=== PATIENT | female | born 1975 | race Caucasian/White ===

== ENCOUNTER → 2020-09-25 11:04 | Outpatient (BNVA) | payer MEDICAID, SELFPAY | PROVIDERS: Referring Provider Nurse Practitioner Family; Visit Provider Orthopaedic Surgery | DX: M54.9 Dorsalgia, unspecified (principal) | CPT/HCPCS: 72110 ==

== ENCOUNTER 2020-11-01 09:50 | Outpatient (CLI) | payer MEDICAID, SELFPAY ==
--- NOTE | 2020-11-01 09:55 | MM_ITS ---
WS: [id number] BILATERAL SCREENING DIGITAL MAMMOGRAM WITH CAD HISTORY: SCREENING COMPARISON: 07/28/2018 Bilateral CC and MLO views submitted. Computer aided detection analyzed. Breast composition: There are scattered areas of fibroglandular density. No suspicious masses, microc alcifications or architectural distortion. MM/[place] [id number] IMPRESSION: BI-RADS: 1-Negative FOLLOW UP: 1 Year Follow-up
== END 2020-11-01 09:51 | disposition home or self-care (01) ==
LOC: RADSHAW 09:53
PROVIDERS: PCP Nurse Practitioner Family; Visit Provider Nurse Practitioner Family
DX: Z12.31 Encounter for screening mammogram for malignant neoplasm of breast (principal)
CPT/HCPCS: 77067

== ENCOUNTER 2025-01-24 06:44 | Emergency (ER) | payer OTHER, MEDICAID, SELFPAY ==
--- NOTE | 2025-01-24 06:46 | XRR_ITS ---
PROCEDURE INFORMATION: Exam: XR Chest Exam date and time: 01/24/2025 7:01 AM Age: 49 years old Clinical indication: Pain; Angina pectoris; Additional info: Cp TECHNIQUE: Imaging protocol: Radiologic exam of the chest. Views: 1 view. COMPARISON: No relevant prior studies available. FINDINGS: Lungs: Unremarkable. No consolidation. Pleural spaces: Unremarkable. No pleural effusion. No pneumothorax. Heart/Mediastinum: Unremarkable. No cardiomegaly. Bones/joints: Unremarkable. XR/XR chest 1V portable [id number] IMPRESSION: No acute findings.
--- NOTE | 2025-01-24 06:46 | ECG_ITS ---
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 Measurements Intervals [place] Rate: 85 P: 70 NM: 161 QRS: 70 QRSD: 90 T: 73 QT: 343 QTc: 409 Interpretive Statements SINUS RHYTHM No previous ECG available for comparison Electronically Signed On 01-24-2025 08:13:38 CDT by Chadd Tejeda M.D. [id number]
[2025-01-24 06:54] VITALS: BP 111/68; PULSE 86; RESP 18; TEMP 36.8; O2SAT 100; BMI 33.9
--- NOTE | 2025-01-24 06:57 | W.ED.CHESTPA ---
HPI - Chest Pain General: Chief Complaint: Chest Pain Stated Complaint: cp Time Seen by Provider: 01/24/25 06:45 Source: patient Mode of arrival: ambulatory Limitations: no limitations History of Present Illness: 49-year-old female states she woke up this morning at 5 AM with chest pain she states she has a pressure type pain across her chest she did take 3 nitro with no relief. She does have a history of coronary artery disease she rates her pain a 4 out of 10 currently denies any nausea or diaphoresis she denies any shortness of breath. Denies any vomiting or diarrhea Associated symptoms: Deny abdominal pain, dyspnea, fever(s), nausea or vomiting Related Data Home Medications ?Medication ?Instructions ?Recorded ?Confirmed amlodipine 10 mg tablet (Norvasc) 10 mg PO DAILY 09/25/20 01/24/25 atorvastatin 20 mg tablet (Lipitor) 20 mg PO DAILY 09/25/20 01/24/25 hydrochlorothiazide 12.5 mg tablet 12.5 mg PO DAILY 09/25/20 01/24/25 lisinopril 20 mg tablet 20 mg PO DAILY 09/25/20 01/24/25 ropinirole 1 mg tablet 1 mg PO .qhs 09/25/20 01/24/25 aspirin 81 mg tablet,delayed 81 mg PO DAILY 01/24/25 01/24/25 release budesonide-formoterol HFA 160 2 puff inhalation BID 01/24/25 01/24/25 mcg-4.5 mcg/actuation aerosol inhaler (Symbicort) celecoxib 200 mg capsule 200 mg PO DAILY 01/24/25 01/24/25 clopidogrel 75 mg tablet 75 mg PO DAILY 01/24/25 01/24/25 dapagliflozin propanediol 10 mg 10 mg PO DAILY 01/24/25 01/24/25 tablet (Farxiga) ergocalciferol (vitamin D2) 1,250 1,250 mcg PO Q7D 01/24/25 01/24/25 mcg (50,000 unit) capsule hydrocodone 10 mg-acetaminophen 1 tab PO TID pain 01/24/25 01/24/25 325 mg tablet isosorbide mononitrate 30 mg 30 mg PO DAILY 01/24/25 01/24/25 tablet,extended release 24 hr metformin 500 mg tablet,extended 1,000 mg PO BID 01/24/25 01/24/25 release 24 hr metoprolol tartrate 100 mg tablet 100 mg PO BID 01/24/25 01/24/25 pregabalin 200 mg capsule 200 mg PO TID PRN Pain 01/24/25 01/24/25 semaglutide 0.25 mg or 0.5 mg (2 0.5 mg SUBCUT Q7D 01/24/25 01/24/25 mg/3 mL) subcutaneous pen injector (Ozempic) varenicline tartrate 0.5 mg tablet See Rx Instructions .Route .COMPLEX 01/24/25 01/24/25 (Chantix) Allergies Allergy/AdvReac Type Severity Reaction Status Date / Time No Known Allergies Allergy Verified 10/30/20 09:46 Review of Systems Const: Denies: fever(s), chills, body aches or change in appetite ENMT: Denies: throat pain or dental pain Card: Reports: chest pain Resp: Denies: dyspnea GI: Denies: abdominal pain, nausea, vomiting or diarrhea : Denies: dysuria Musc: Denies: neck pain or back pain Skin/Breast: Denies: rash Neuro: Denies: headache(s) PFSH ED PFSH: Family History Grandfather Cancer Grandmother Diabetes Mother Hypertension Stroke Social History Smoking and tobacco/nicotine status: current every day tobacco/nicotine user Second hand smoke exposure: Yes Alcohol intake: current Alcohol intake frequency: holidays/special occasions only Substance/Drug Use: never Physical Exam Const: COMMON NORMALS: no acute distress, patient oriented x3 and healthy appearing HENMT: COMMON NORMALS: normocephalic and atraumatic HEAD & SCALP: normocephalic and atraumatic Eye: COMMON NORMALS: conjunctivae normal CONJUNCTIVA: Yes conjunctivae normal Neck/C-Spine: COMMON NORMALS: full ROM and supple Chest: COMMONS NORMALS: normal inspection of the chest and normal palpation of entire chest wall Resp: COMMON NORMALS: normal respiratory effort, No retractions, No use of accessory muscles and clear to auscultation bilaterally AUSCULTATION: clear to auscultation bilaterally Cardio: COMMON NORMALS: regular rate, regular rhythm and No murmurs present (Cardio) RATE: regular rate RHYTHM: regular rhythm GI: COMMON NORMALS: Normal to inspection, nondistended, normoactive bowel sounds present, Soft to palpation, non-tender and no masses PALPATION: Yes Soft to palpation Extremity: COMMON NORMALS: normal to inspection and full ROM Neuro: COMMON NORMALS: patient oriented x3, moves all extremities and no focal motor deficits Psych: COMMON NORMALS: mental status grossly normal, Normal thought process present and cooperative THOUGHT PROCESS: Normal thought process present Skin: COMMON NORMALS: no rashes or lesions noted and no wounds GENERAL SKIN EXAM: no rashes or lesions noted Course Vital Signs: Vital signs: Vital Signs Temperature 98.2 F 01/24/25 06:54 Pulse Rate 80 01/24/25 09:51 Respiratory Rate 16 01/24/25 09:51 Blood Pressure 109/60 01/24/25 09:51 Pulse Oximetry 97 01/24/25 09:51 Oxygen Delivery Me thod Room Air 01/24/25 08:24 MDM - Chest Pain Medical Decision Making Patient presents for chest pain is atypical in nature her initial repeat troponins are negative she is much improved here she has no signs of ACS PE or dissection she is follow-up with PCP return if worsening. Medical Records I reviewed the patient's medical records. Lab Data I reviewed the patient's lab results. 01/24/25 06:55 01/24/25 06:55 Radiology Impressions Chest X-Ray 01/24/25 06:46 IMPRESSION: No acute findings. Laboratory Results WBC 5.77 10^3/uL (3.29-11.43) 01/24/25 06:55 RBC 4.88 10^6/uL (3.85-5.65) 01/24/25 06:55 Hgb 15.00 g/dL (11.27-16.99) 01/24/25 06:55 Hct 44.0 % (36-47) 01/24/25 06:55 MCV 90.2 fl (85-98) 01/24/25 06:55 MCH 30.7 pg (27-33) 01/24/25 06:55 MCHC 34.1 g/dL (30-55) 01/24/25 06:55 RDW 12.8 % (12.1-15.1) 01/24/25 06:55 Plt Count 221 10^3/cmm (157-399) 01/24/25 06:55 MPV 10.5 fL (7.4-10.4) H 01/24/25 06:55 Neut % (Auto) 53.0 % 01/24/25 06:55 Lymph % (Auto) 34.3 % 01/24/25 06:55 [place] % (Auto) 9.2 % 01/24/25 06:55 Eos % (Auto) 2.3 % 01/24/25 06:55 Baso % (Auto) 0.7 % 01/24/25 06:55 Neut # (Auto) 3.06 10^3/uL (1.8-7.7) 01/24/25 06:55 Lymph # (Auto) 2.0 10^3/uL (0.8-4.8) 01/24/25 06:55 [place] # (Auto) 0.5 10^3/uL (0.2-0.9) 01/24/25 06:55 Eos # (Auto) 0.1 10^3/uL (0.0-0.8) 01/24/25 06:55 Baso # (Auto) 0.0 10^3/uL (0.0-0.1) 01/24/25 06:55 Nucleated RBC % (auto) 0 % 01/24/25 06:55 Nucleated RBCs # 0.0 /100WBC 01/24/25 06:55 Sodium 136 mmol/L (136-145) 01/24/25 06:55 Potassium 4.7 mmol/L (3.5-5.1) 01/24/25 06:55 Chloride 100 mmol/L (98-107) 01/24/25 06:55 Carbon Dioxide 25 mmol/L (22-29) 01/24/25 06:55 Anion Gap 15.7 (5-19) 01/24/25 06:55 BUN 24 mg/dL (6-20) H 01/24/25 06:55 Creatinine 0.7 mg/dL (0.5-0.9) 01/24/25 06:55 GFR Calculation 88.9 mL/min (90-130) L 01/24/25 06:55 Glucose 208 mg/dL (65-115) H 01/24/25 06:55 Calculated Osmolality 292 mOsm/kg (285-295) 01/24/25 06:55 Calcium 9.8 mg/dL (8.5-10.5) 01/24/25 06:55 Total Bilirubin 0.4 mg/dL (0.15-1.2) 01/24/25 06:55 AST 16 U/L (0-32) 01/24/25 06:55 ALT 24 U/L (0-33) 01/24/25 06:55 Alkaline Phosphatase 112 U/L (35-105) H 01/24/25 06:55 Troponin T Baseline 9 ng/L (0-10) 01/24/25 06:55 Troponin T 120 Minute 7.88 ng/L (0-10) 01/24/25 08:38 Delta Troponin T -1.12 ABS# (0-10) L 01/24/25 08:38 Total Protein 6.7 g/dL (6.6-8.7) 01/24/25 06:55 Albumin 4.2 g/dL (3.5-5.2) 01/24/25 06:55 Globulin 2.5 g/dL (1.3-4.6) 01/24/25 06:55 Lipase 81 U/L (13-60) H 01/24/25 06:55 All radiology interpretation(s) finalized by discharge EKG Data EKG 1: I personally reviewed and interpreted this EKG as follows: EKG interpretation date: 01/24/25 EKG interpretation time: 06:46 Interpretation: nsr hr [address] elevation qrs 90 qtc 385 EKG 2: I personally reviewed and interpreted this EKG as follows: EKG interpretation date: 01/24/25 EKG interpretation time: 09:03 Interpretation: nsr hr [address] elevation qrs 90 qtc 386 Clincial Decision Support The following clinical decision support tools were used to aid in care of the patient HEART Score -> History: Slightly Suspicous, EKG: Normal, Age: 45-64 yrs, Risk Factors: 1 or 2 Risk Factors, Troponin: Baseline Trop <16 ng/L. Resulting HEART Score: 2. Discharge Plan Discharge Patient Disposition: Home Clinical Impression: Chest pain Condition: Stable Prescriptions: No Action hydrochlorothiazide 12.5 mg tablet 12.5 mg PO DAILY ropinirole 1 mg tablet 1 mg PO .qhs atorvastatin [Lipitor] 20 mg tablet 20 mg PO DAILY amlodipine [Norvasc] 10 mg tablet 10 mg PO DAILY lisinopril 20 mg tablet 20 mg PO DAILY celecoxib 200 mg capsule 200 mg PO DAILY metoprolol tartrate 100 mg tablet 100 mg PO BID isosorbide mononitrate 30 mg tablet extended release 24 hr 30 mg PO DAILY clopidogrel 75 mg tablet 75 mg PO DAILY hydrocodone-acetaminophen 10-325 mg tablet 1 tab PO TID aspirin 81 mg tablet,delayed release (DR/EC) 81 mg PO DAILY ergocalciferol (vitamin D2) 1,250 mcg (50,000 unit) capsule 1,250 mcg PO Q7D metformin 500 mg tablet extended release 24 hr 1,000 mg PO BID pregabalin 200 mg capsule 200 mg PO TID PRN (Reason: Pain) varenicline tartrate [Chantix] 0.5 mg tablet See Rx Instructions .ROUTE .COMPLEX Rx Instructions: TAKE ONE TABLET BY MOUTH AFTER eating TWICE DAILY budesonide-formoterol [Symbicort] 160-4.5 mcg/actuation HFA aerosol inhaler 2 puff INHALATION BID dapagliflozin propanediol [Farxiga] 10 mg tablet 10 mg PO DAILY Ozempic 0.25 mg or 0.5 mg (2 mg/3 mL) pen injector 0.5 mg SUBCUT Q7D Discharge Orders: Discharge ED (Routine); Ordered 01/24/25 Ordered By: Kat Cameron Referrals: Nancy Acharya FNP [Primary Care Provider, Unknown] Discharge Diet: Advance as tolerated Discharge Activity: Resume usual activity Patient Instructions: Chest Pain (ED) Print Language: Nauruan Coding Level of Care Code ED 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
[2025-01-24] MEDS: morphine 4 mg/mL SDV 1 mL IVP (07:02)
[2025-01-24] MEDS: ondansetron 2 mg/ML SDV 2 mL 4 MG IVP (07:02)
[2025-01-24 07:06] LABS: Hematocrit 44.0 % (36-47); Hemoglobin 15.00 g/dL (11.27-16.99); Mean Corpuscular HGB Conc 34.1 g/dL (30-55); Mean Corpuscular Hemoglobin 30.7 pg (27-33); Mean Corpuscular Volume 90.2 fl (85-98); Nucleated Red Blood Cells % 0 %; Platelet Count 221 10^3/cmm (157-399); Red Blood Count 4.88 10^6/uL (3.85-5.65); White Blood Count 5.77 10^3/uL (3.29-11.43)
[2025-01-24 07:21] LABS: Alanine Aminotransferase 24 U/L (0-33); Albumin Level 4.2 g/dL (3.5-5.2); Alkaline Phosphatase 112 U/L (35-105); Anion Gap 15.7 (5-19); Aspartate Amino Transferase 16 U/L (0-32); Blood Urea Nitrogen 24 mg/dL (6-20); Calcium 9.8 mg/dL (8.5-10.5); Carbon Dioxide 25 mmol/L (22-29); Chloride 100 mmol/L (98-107); Creatinine Clr Calc Pharmacy 109.2925; Globulin 2.5 g/dL (1.3-4.6); Glucose 208 mg/dL (65-115); Lipase 81 U/L (13-60); Osmolality Calculated 292 mOsm/kg (285-295); Potassium 4.7 mmol/L (3.5-5.1); Sodium 136 mmol/L (136-145); Total Protein 6.7 g/dL (6.6-8.7)
[2025-01-24 07:22] LABS: Troponin(5th) Baseline 9 ng/L (0-10)
[2025-01-24 07:38] VITALS: PULSE 83; RESP 16; O2SAT 97
[2025-01-24 08:24] VITALS: BP 98/54; PULSE 83; RESP 16; O2SAT 94
--- NOTE | 2025-01-24 08:46 | ECG_ITS ---
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 Measurements Intervals [place] Rate: 82 P: 49 TX: 167 QRS: 60 QRSD: 90 T: 68 QT: 347 QTc: 407 Interpretive Statements SINUS RHYTHM Compared to ECG 01/24/2025 06:46:36 No significant changes Electronically Signed On 01-25-2025 22:27:43 CDT by Bridger Gonzales M.D. [email or web address] [id number]
[2025-01-24 09:12] LABS: Troponin 5 2HR 7.88 ng/L (0-10)
[2025-01-24 09:15] LABS: Troponin 5 2HR Delta -1.12 ABS# (0-10)
[2025-01-24 09:51] VITALS: BP 109/60; PULSE 80; RESP 16; O2SAT 97
--- OUTSIDE RECORDS SUMMARY | 2025-01-25 12:37 | XMS_ITS | Encounter Summary ---
Author Organization [facility] Address [address] [place] [address] Care Team Providers Care Relaster Name Role Phone Unavailable Primary Care Provider Unavailabl e Encounter Details Date Type Department Care Team (Late st Contact Info) Description 01/18/2025 External Device Data [facility] ABSTRACTION Provider, Abstract NO ADDRESS ON FILE Social History Tobacco Use Types Packs/Day Years Used Date Smoking Tobacco: Every Day Cigarettes Comments Unknown Sex and Gender Information Value Date Recorded Sex Assigned at Not on file Legal Sex Female 2:23 PM CDT Gender Identity Not on file Sexual Orientation Not on file documented as of this encounter Plan of Treatment Upcoming Encounters Date Type Department Care Team (Late st Contact Info) Description 02/15/2025 1:30 PM CDT Office Visit [facility] [place] [address] [place] [phone] Vasquez Sheth MD [address] [place] [phone] documented as of this encounter Visit Diagnoses Not on filedocumented in this encounter
--- OUTSIDE RECORDS SUMMARY | 2025-01-25 12:38 | XMS_ITS | Clinical Summary ---
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 4 Active budesonide-form oteroL (SYMBICORT) 160-4.5 mcg/actuation HFA Aerosol Inhaler Take 2 Puffs by inhalation 2 times daily. 4 Active celecoxib (CeleBREX) 100 mg capsule Take 100 mg by mouth daily. 4 Active clopidogreL (PLAVIX) 75 mg Tablet Take 75 mg by mouth daily. 4 Active dapagliflozin propanediol (FARXIGA) 10 mg Tablet Take 10 mg by mouth daily. 4 Active ergocalciferol (VITAMIN D2) 50,000 unit capsule Take 50,000 Int'l Units by mouth every 7 days. 4 Active HYDROcodone-marcio taminophen (NORCO) 7.5-325 mg Tablet Take 1 Tablet by mouth every 4 hours as needed for Pain. 4 Active atorvastatin (LIPITOR) 20 mg tablet Take 20 mg by mouth daily. 4 Active insulin aspart U-100 (NovoLOG Flexpen U-100 Insulin) 100 unit/mL pen syringe Inject 100 Units by subcutaneous injection 3 times daily with meals. 4 Active levocetirizine (XYZAL) 5 mg tablet Take 5 mg by mouth 1 time daily as needed. 4 Active isosorbide mononitrate (IMDUR) 30 mg Extended Release 24 hour tablet Take 30 mg by mouth daily in the morning. 4 Active pregabalin (LYRICA) 150 mg Capsule Take 150 mg by mouth every 8 hours. Active rOPINIRole (REQUIP) 2 mg Tablet Take 2 mg by mouth daily at bedtime. Active metFORMIN (GLUCOPHAGE XR) 500 mg Extended Release 24 hour tablet Take 1,000 mg by mouth 2 times daily with meals. 4 Active lisinopriL (PRINIVIL) 20 mg tablet Take 20 mg by mouth daily. Active hydroCHLOROthia zide 12.5 mg tablet 12.5 mg daily. Activ e folic acid (FOLVITE) 1 mg tablet Take 1 mg by mouth daily. 5 Active amLODIPine (NORVASC) 10 mg tablet Take 10 mg by mouth daily. Active insulin degludec (Tresiba FlexTouch U-100) 100 unit/mL pen syringe Inject 18 Units by subcutaneous injection daily at bedtime. Active pregabalin (LYRICA) 200 mg Capsule Take 200 mg by mouth every 8 hours. Active nitroglycerin (NITROSTAT) 0.4 mg Tablet, Sublingual DISSOLVE 1 TABLET UNDER THE TONGUE EVERY 5 MINUTES NEEDED FOR CHEST PAIN. DO NOT EXCEED 3 DOSES IN 15 MIN. IF NO RELIEF CALL 911 25 Tablet Active metoprolol tartrate (LOPRESSOR) 100 mg tablet TAKE ONE TABLET BY MOUTH TWICE DAILY *THANK YOU AND ESTELLA GOD BLESS YOU* 180 Tablet 1 5 Active Active Problems Problem Noted Date Diagnosed Date Claudication 02/10/2024 Arteriosclerosis of coronary artery 01/13/2024 Chest pain 01/13/2024 Hyperlipidemia 01/13/2024 Hypertension 01/13/2024 Diabetic neuropathy 08/27/2020 Encounters Date Type Department Care Team Description 01/18/2025 External Device Data [facility] ABSTRACTION Provider, Abstract 01/17/2025 External Device Data [facility] ABSTRACTION Provider, Abstract 12/28/2024 External Device Data [facility] ABSTRACTION Provider, Abstract 12/28/2024 External Device Data [facility] ABSTRACTION Provider, Abstract 12/06/2024 External Device Data [facility] ABSTRACTION Provider, Abstract 11/04/2024 External Device Data [facility] ABSTRACTION Provider, Abstract 11/02/2024 External Device Data [facility] ABSTRACTION Provider, Abstract 11/02/2024 External Device Data STL ABSTRACTION Provider, Abstract from Last 3 Months Social History Tobacco Use Types Packs/Day Years Used Date Smoking Tobacco: Every Day Cigarettes Tobacco Cessation:Ready to Q uit: Not Asked; Counseling Given: Not Answered Comments Unknown Sex and Gender Information Value Date Recorded Sex Assigned at Not on file Legal Sex Female 2:23 PM CDT Gender Identity Not on file Sexual Orientation Not on file Last Filed Vital Signs Vital Sign Reading Time Taken Comments Blood Pressure 90/60 08/18/2024 10:26 AM CITY JAILER Pulse 84 08/18/2024 10:26 AM CITY JAILER Temperature - - Respiratory Rate - - Oxygen Saturation - - Inhaled Oxygen Concentration - - Weight 94.7 kg (208 lb 12.8 oz) 025 12:49 PM CITY JAILER Height 165.1 cm (5' 5 ) 08/17/2024 12:4 9 PM CITY JAILER Body Mass Index 34.75 08/17/2024 12:49 PM CITY JAILER Plan of Treatment Upcoming Encounters Date Type Department Care Team (Late st Contact Info) Description 02/15/2025 1:30 PM CDT Office Visit [facility] [place] [address] [place] [phone] Vasquez Sheth MD [address] [place] [phone] Health Maintenance Due Date Last Done Comments DIABETES ANNUAL FOOT EXAM 1993 DIABETES ANNUAL RETINAL EXAM 1993 DIABETES MICROALBUMIN ANNUAL SCREEN 1993 LDL CHOLESTEROL ANNUAL 1993 DTAP/TDAP/TD VACCINES (1 - Tdap) 1994 HEPATITIS B VACCINES (1 of 3 - 19+ 3-dose series) 1994 HPV/Cotest (21-29) 1996 CERVICAL CANCER SCREENING 2005 HPV/Cotest (30-65) 2005 PAP SMEAR 2005 COLORECTAL SCREENING 2020 Colorectal Cancer Screening 2020 FIT-DNA Q 3 years 2020 FIT/FOBT Q 1 year 2020 Flex Sig/CT Colonography Q 5 years 2020 DIABETES HBA1C Q 6 MONTHS 02/13/2021 08/13/2020 BREAST CANCER SCREENING 11/22/2022 11/22/2021, 11/22 INFLUENZA VACCINE (#1) 2025 Insurance [facility] DUAL COMPLETE HMO [facility] [id number] MEDICAID [place]
--- OUTSIDE RECORDS SUMMARY | 2025-01-25 12:38 | XMS_ITS | Encounter Summary ---
Author Organization [facility] Address 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
--- OUTSIDE RECORDS SUMMARY | 2025-01-25 12:38 | XMS_ITS | Patient Health Record ---
Author Organization [facility] [place] Address [address] [facility] [address] [place] [address] Care Team Providers Care Bell Attendant Name Role Phone Esquivel, José Antonio Primary Care Provider Traci Loo Unavailable [phone] Muna Mijares Unavailable [phone] Allergies Allergen (clinical drug ingredient) Drug/Non Drug Allergy documented on EMR Reaction Allergy Type Onset Date Status No Known Drug Allergy Unknown Drug Allergy Active Results Component Value Reference Range Flag Notes INSULIN (561) Reviewed date:04/27/2024 08:10:03 AM Interpretation: Performing Lab:FRANCIS, [facility][id number] Gó[place] [id number] Miguel Mota MD Notes/Report: NON-FASTING INSULIN 12.2 N cut points (optimal, moderate, high) studies performed at [facility] in 2021. Reference Range < or = 18.4 Risk: High >18.4 Optimal < or = 18.4 Moderate NA are based on Insulin Reference Interval Adult cardiovascular event risk category *CT LUMBAR SPINE W/O CONTRAS T 67667 Reviewed date:03/21/2024 04:04:29 PM Interpretation:Abnormal Performing Lab: Notes/Report: Abnormal LIPID PANEL Reviewed date:10/04/2024 08:10:51 AM Interpretation: Performing Lab: Notes/Report: CHOLESTEROL 148 0-200 mg/dL LDL Direct 74.0 0-100 mg/dL TRIGLYCERIDES 382 0-150 mg/dL H HDL CHOLESTEROL 32 50 mg/dL L CHOL/HDL RATIO 4.63 COMP. METABOLIC Reviewed date:10/04/2024 08:10:43 AM Interpretation: Performing Lab: Notes/Report: SODIUM 136 135-146 mmol/L POTASSIUM 4.9 3.5-5.3 mmol/L CHLORIDE 98 98-110 mmol/L CO2 27 20-32 mmol/L BUN 23 7-25 mg/dL CALCIUM 9.8 8.6-10.2 mg/dL CREATININE 0.78 0.50-0.99 mg/dL GLUCOSE 278 65-139 mg/dL H ALK PHOSPHATASE 99 31-125 IU/L ALT 29 6-29 IU/L AST 18 10-35 IU/L TOTAL BILIRUBIN 0.5 0.2-1.2 mg/dL ALBUMIN 4.2 3.6-5.1 g/dL TOTAL PROTEIN 6.9 6.1-8.1 g/dL eGFR 92.8 >60 mL/min CBC + AutoDiff 5 Reviewed date:10/04/2024 08:11:02 AM Interpretation: Performing Lab: Notes/Report: WBC 8.26 3.77-11.03 10*3/ul RBC 5.38 3.83-5.06 10*6/ul H HGB 16.47 11.59-15.11 g/dL H HCT 50.8 34.6-44.1 % H MCV 94.5 80-98 fL MCH 30.6 26.6-33.5 pg MCHC 32.4 32.9-35.4 g/dL L RDW 15.3 12.6-15.6 % RDW-SD 48.5 38.9-50.6 fL PLATELETS 260.6 169-368 10^3/uL MPV 8.48 7.45-10.84 fL LYMPHOCYTES % 20.22 18.51-48.9 % LYMPHOCYTES # 1.67 1.16-3.78 10^3/uL MONOCYTES % 7.17 4.27-12.81 % MONOCYTES # 0.59 0.28-0.83 10^3/uL EOSINOPHILS % 1.32 0.71-6.09 % EOSINOPHILS # 0.11 0.04-0.42 10^3/uL BASOPHILS % 0.25 0.05-0.47 % BASOPHILS # 0.02 0.00-0.03 10^3/uL NEUTROPHILS % 71.04 41.35-72.27 % NEUTROPHILS # 5.87 2.03-7.67 10^3/uL MYCOPLASMA PNEUMONIAE ANTIBO DIES (IGG,IGM) ([id number]) Reviewed date:10/24/2024 08:54:25 AM Interpretation: Performing Lab:[facility] [place] [address] [id number] Pat Fischer MD,PhD,[place] Notes/Report: NON-FASTING NON-FASTING NON-FASTING MYCOPLASMA PNEUMONIAE ANTIBODY (IGG) 1.65 H <=0.90 Negative or past infection. The clinical diagnosis It does not differentiate between an active A positive IgG antibody result indicates clinical signs and symptoms of the patient. must be interpreted in conjunction with the REFERENCE RANGE: <=0.90 Interpretive criteria: 0.91-1.09 Equivocal that the patient has antibody to Mycoplasma. >=1.10 Positive MYCOPLASMA PNEUMONIAE ANTIBODY (IGM) 47 N another IgM response, if previously infected. with recent infection. However, a negative <770 U/mL Negative result does not necessarily rule out recent NO COLLECTION DATE RECEIVED. WE HAVE USED Interpretive criteria: PHONE NUMBER: [phone] A positive IgM antibody result is consistent 770-950 U/mL Low positive >950 U/mL Positive LABORATORY THE COLLECTION DATE. IF THIS IS INCORRECT, PLEASE CONTACT CLIENT SERVICES. THE DATE THE SPECIMEN WAS RECEIVED BY THIS REFERENCE RANGE: <770 U/mL infection as some individuals may not mount TEST AUTHORIZATION Reviewed date:10/18/2024 08:43:50 AM Interpretation: Performing Lab:FR[facility]IS [facility]-[id number] Chris [facility], [id number] Miguel Mota MD Notes/Report: NON-FASTING NON-FASTING NON-FASTING TEST NAME: MYCOPLASMA PNEUMONIAE ANTIBOD TEST CODE: [id number] CLIENT CONTACT: APRIL WHEELER REPORT ALWAYS MESSAGE SIGNATURE or confirmed by the ordering physician or his or her authorized in service educator. sign a copy of this report and promptly return it to the client Signature: authorization for all laboratory testing. Accordingly we are asking sales representative printing supplies after contact with an employee of [employer] [employer] that the ordering physician or his or her authorized sales representative printing supplies The laboratory testing on this patient was verbally requested Federal regulations require that we maintain on file written COMMENT Fax number: [phone] APOLIPOPROTEIN B (4177) Reviewed date:04/07/2024 08:22:51 AM Interpretation: Performing Lab:[facility] [place],[address] [address], [id number] Pat Fischer MD,PhD,[place] Notes/Report: NON-FASTING APOLIPOPROTEIN B 104 H Cardiovascular event risk category cut points (optimal, Moderate 90-119 2015;9:129-169 and Danilo PS et al. Endocr Pract. recommendations - Adia TA et al. J of Clin Lipid. 2017;23(Suppl 2):1-87. Optimal <90 Reference Range: <90 Risk Category: High > or = 120 moderate, high) are based on National Lipid Association CORTISOL, TOTAL (367) Reviewed date:04/27/2024 08:10:23 AM Interpretation: Performing Lab:[facility]-[id number] Chris [facility], [id number] Miguel Mota MD Notes/Report: NON-FASTING CORTISOL, TOTAL 4.4 N * Please interpret above results accordingly * Reference Range: For 4 p.m.(3-5 p.m.) Specimen: 3.0-17.0 Reference Range: For 8 a.m.(7-9 a.m.) Specimen: 4.0-22.0 ADVANCED LIPID PANEL, CARDIO IQ(R) ([id number]) Reviewed date:05/09/2024 10:18:31 AM Interpretation: Performing Lab:Patricio, [facility] [place] [address], [address], [id number] Tim Thomason PhD,[facility] Notes/Report: NON-FASTING CHOLESTEROL, TOTAL 142 <200 mg/dL HDL CHOLESTEROL 40 >49 mg/dL L TRIGLYCERIDES 295 <150 mg/dL H triglyceride testing on a fasting specimen if clinically 9:129-169. If a non fasting specimen was collected, consider repeat indicated. Adia et al. J of Clin. Lipidol. 215; LDL-CHOLESTEROL 67 <100 mg/dL (calc) Desirable range <100 mg/dL for primary prevention; <70 estimation of LDL-C. LDL-C is now calculated using the Hank-Faith better accuracy than the Friedewald equation in the CHD risk factors. better accuracy than the Friedewald equation in the calculation, which is a validated novel method providing mg/dL for patients with CHD or diabetic patients with >= 2 (http://education.Adrenaline Mobility.com/faq /OXY032) (http://education.Adrenaline Mobility.com/faq /KEA922) estimation of LDL-C. Hank SS et al. JACOBY. 2013;310(19): Hank SS et al. JACOBY. 2013;310(19): 9143-1277 LDL-C is now calculated using the Hank-Faith calculation, which is a validated novel method providing CHOL/HDLC RATIO 3.6 <5.0 calc NON HDL CHOLESTEROL 102 <130 mg/dL (calc) For patients with diabetes plus 1 major ASCVD risk factor, For patients with diabetes plus 1 major ASCVD risk mg/dL) is considered a therapeutic option. (LDL-C of <70 mg/dL) is considered a therapeutic factor, treating to a non-HDL-C goal of <100 mg/dL option. treating to a non-HDL-C goal of <100 mg/dL (LDL-C of <70 LDL PARTICLE NUMBER 1760 <1138 nmol/L H Relative Risk: Optimal <1138; Moderate 3198-5599; High >1409. Male and Female Reference Range: 1016 to 2185 nmol/L. LDL SMALL 307 <142 nmol/L H Male Reference Range: 123 to 441 nmol/L; Female Reference Range: 115 to 386 nmol/L. Relative Risk: Optimal <142; Moderate 142-219; High >219. LDL MEDIUM 167 <215 nmol/L Relative Risk: Optimal <215; Moderate 215-301; High >301. Male Reference Range: 167 to 485 nmol/L; Female Reference Range: 121 to 397 nmol/L. HDL LARGE 5261 >6729 nmol/L L Reference Range: 5038 to 24574 nmol/L. <5353. Male Reference Range: 4334 to [address] nmol/L; Female Relative Risk: Optimal >6729; Moderate 2145-1712; High LDL PATTERN B A Pattern A Range: Pattern A. Relative Risk: Optimal Pattern A; High Pattern B. Reference LDL PEAK SIZE 207.2 >222.9 [facility]. to http://education.Twist/faq/ UTB574 (This points (optimal, moderate, high) are based on an adult [place] link is being provided for informational/educati onal Flori. Adult cardiovascular event risk category cut populations. Association between lipoprotein subfractions <217.4. Male and Female Reference Range: 216 to 234.3 purposes only.) This test was developed and its analytical performance reference population plus two large cohort study and cardiovascular events is based on Eric et al. to the CLIA regulations and is used for clinical purposes. ATVB.2009;29:1975. For additional information, please refer characteristics have been determined by [facility] [employer] Drug Administration. This assay has been validated pursuant Relative Risk: Optimal >222.9; Moderate 222.9-217.4; High It has not been cleared or approved by the U.S. Food and APOLIPOPROTEIN B 101 <90 mg/dL H Association recommendations- Adia TA et al. J of Clin Lipid. 2015; 9: 129-169 and Danilo PS et al. Endocr mg/dL; Cardiovascular event risk category cut points Pract. 2017;23(Suppl 2):1-87. Risk: Optimal <90 mg/dL; Moderate 90-119 mg/dL; High >= 120 (optimal, moderate, high) are based on National Lipid LIPOPROTEIN (a) 393 <75 nmol/L H NO COLLECTION DATE RECEIVED. WE HAVE USED 2017;69:692-711. Verified by repeat analysis. Risk: Optimal <75 nmol/L; Moderate 75-125 nmol/L; High >125 LABORATORY THE COLLECTION DATE. IF THIS THE DATE THE SPECIMEN WAS RECEIVED BY THIS nmol/L. Cardiovascular event risk category cut points IS INCORRECT, PLEASE CONTACT CLIENT SERVICES. (optimal, moderate, high) are based on [place] ANGELA PHONE NUMBER: [phone] Full Confirmation - Specimen Type Urine Reviewed date:08/30/2024 08:53:08 AM Interpretation: Performing Lab: Notes/Report: 6-CECILIA Negative 20 ng/mL ng/mL 7-Aminoclonazepam Negative 50 ng/mL ng/mL a-Hydroxyalprazolam Negative 50 ng/mL ng/mL Alprazolam Negative 50 ng/mL ng/mL Amphetamine Negative 50 ng/mL ng/mL Benzoylecgonine Negative 50 ng/mL ng/mL Buprenorphine Negative 25 ng/mL ng/mL Carisoprodol Negative 50 ng/mL ng/mL Clonazepam Negative 50 ng/mL ng/mL Codeine Negative 50 ng/mL ng/mL Cyclobenzaprine Negative 50 ng/mL ng/mL Diazepam Negative 50 ng/mL ng/mL EDDP Negative 50 ng/mL ng/mL Fentanyl Negative 3 ng/mL ng/mL Gabapentin Negative 500 ng/mL ng/mL Hydrocodone 257 50 ng/mL ng/mL H Hydromorphone 143 50 ng/mL ng/mL H Lorazepam Negative 50 ng/mL ng/mL MDMA Negative 50 ng/mL ng/mL Meprobamate Negative 50 ng/mL ng/mL Methadone Negative 50 ng/mL ng/mL Methamphetamine Negative 200 ng/mL ng/mL Morphine Negative 50 ng/mL ng/mL Naloxone Negative 50 ng/mL ng/mL Naltrexone Negative 50 ng/mL ng/mL Norbuprenorphine Negative 25 ng/mL ng/mL Nordiazepam Negative 50 ng/mL ng/mL Norfentanyl Negative 10 ng/mL ng/mL Norpropoxyphene Negative 50 ng/mL ng/mL Oxazepam Negative 50 ng/mL ng/mL Oxycodone Negative 50 ng/mL ng/mL Oxymorphone Negative 50 ng/mL ng/mL Pregabalin >2000 200 ng/mL ng/mL H Propoxyphene Negative 50 ng/mL ng/mL Tapentadol Negative 50 ng/mL ng/mL Temazepam Negative 50 ng/mL ng/mL Tramadol Negative 50 ng/mL ng/mL THC Negative 50 ng/mL ng/mL Amitriptyline Negative 50 ng/mL ng/mL Carboxyzolpidem Negative 100 ng/mL ng/mL Desmethyldoxepin Negative 50 ng/mL ng/mL Doxepin Negative 50 ng/mL ng/mL Imipramine Negative 50 ng/mL ng/mL Methylphenidate Negative 50 ng/mL ng/mL Nortriptyline Negative 50 ng/mL ng/mL o-Desmethyltramadol Negative 50 ng/mL ng/mL Ritalinic Acid Negative 50 ng/mL ng/mL Desalkylflurazepam Negative 50 ng/mL ng/mL Flunitrazepam Negative 50 ng/mL ng/mL Flurazepam Negative 50 ng/mL ng/mL Ketamine Negative 50 ng/mL ng/mL Meperidine Negative 50 ng/mL ng/mL Mitragynine Negative 50 ng/mL ng/mL Norhydrocodone 118 50 ng/mL ng/mL H Norketamine Negative 50 ng/mL ng/mL Normeperidine Negative 50 ng/mL ng/mL Noroxycodone Negative 50 ng/mL ng/mL PCP Negative 25 ng/mL ng/mL Phentermine Negative 50 ng/mL ng/mL Zaleplon Negative 20 ng/mL ng/mL Trazodone Negative 50 ng/mL ng/mL Presumptive Drug Test - Spec imen Type Urine Reviewed date:08/30/2024 08:53:08 AM Interpretation: Performing Lab: Notes/Report: Opiates Screen Positive 150 ng/mL ng/ml H Benzodiazepines Screen Negative 150 ng/mL ng/ml Amphetamines Screen Negative 600 ng/mL ng/ml Cocaine Screen Negative 150 ng/mL ng/ml Methadone Screen Negative 150 ng/mL ng/ml 6-CECILIA Screen Negative 60 ng/mL ng/ml Methamphetamine Screen Negative 600 ng/mL ng/ml Fentanyl Screen Negative 9 ng/mL ng/ml Tricyclic Antidepressants Screen Negative 150 ng/mL ng/ml Buprenorphine Screen Negative 75 ng/mL ng/ml Cannabis Screen Negative 150 ng/mL ng/ml *X-RAY CHEST PA & LATERAL 2 VIEWS 66940 Reviewed date:10/13/2024 03:50:17 PM Interpretation:PERITILOSIS PNEUMONIA , COPD Performing Lab: Notes/Report: PERITILOSIS PNEUMONIA , COPD CAROTID DOPPLER ULTRASOUND 9 3880 Reviewed date:11/15/2024 10:46:12 AM Interpretation:Normal Performing Lab: Notes/Report: Normal *ECHO COMPLETE [id number] Reviewed date:11/15/2024 10:46:49 AM Interpretation:Normal Performing Lab: Notes/Report: Normal Presumptive Drug Test - Spec imen Type Urine Reviewed date:07/11/2024 12:42:16 PM Interpretation: Performing Lab: Notes/Report: Opiates Screen Positive 150 ng/mL ng/ml H Benzodiazepines Screen Negative 150 ng/mL ng/ml Amphetamines Screen Negative 600 ng/mL ng/ml Cocaine Screen Negative 150 ng/mL ng/ml Methadone Screen Negative 150 ng/mL ng/ml 6-CECILIA Screen Negative 60 ng/mL ng/ml Methamphetamine Screen Negative 600 ng/mL ng/ml Fentanyl Screen Negative 9 ng/mL ng/ml Tricyclic Antidepressants Screen Negative 150 ng/mL ng/ml Buprenorphine Screen Negative 75 ng/mL ng/ml Cannabis Screen Negative 150 ng/mL ng/ml Consistent with Urine and Medications Full Confirmation - Specimen Type Urine Reviewed date:07/11/2024 12:42:19 PM Interpretation: Performing Lab: Notes/Report: 6-CECILIA Negative 20 ng/mL ng/mL 7-Aminoclonazepam Negative 50 ng/mL ng/mL a-Hydroxyalprazolam Negative 50 ng/mL ng/mL Alprazolam Negative 50 ng/mL ng/mL Amphetamine Negative 50 ng/mL ng/mL Benzoylecgonine Negative 50 ng/mL ng/mL Buprenorphine Negative 25 ng/mL ng/mL Carisoprodol Negative 50 ng/mL ng/mL Clonazepam Negative 50 ng/mL ng/mL Codeine Negative 50 ng/mL ng/mL Cyclobenzaprine Negative 50 ng/mL ng/mL Diazepam Negative 50 ng/mL ng/mL EDDP Negative 50 ng/mL ng/mL Fentanyl Negative 3 ng/mL ng/mL Gabapentin Negative 500 ng/mL ng/mL Hydrocodone >500 50 ng/mL ng/mL H Hydromorphone 108 50 ng/mL ng/mL H Lorazepam Negative 50 ng/mL ng/mL MDMA Negative 50 ng/mL ng/mL Meprobamate Negative 50 ng/mL ng/mL Methadone Negative 50 ng/mL ng/mL Methamphetamine Negative 200 ng/mL ng/mL Morphine Negative 50 ng/mL ng/mL Naloxone Negative 50 ng/mL ng/mL Naltrexone Negative 50 ng/mL ng/mL Norbuprenorphine Negative 25 ng/mL ng/mL Nordiazepam Negative 50 ng/mL ng/mL Norfentanyl Negative 10 ng/mL ng/mL Norpropoxyphene Negative 50 ng/mL ng/mL Oxazepam Negative 50 ng/mL ng/mL Oxycodone Negative 50 ng/mL ng/mL Oxymorphone Negative 50 ng/mL ng/mL Pregabalin >2000 200 ng/mL ng/mL H Propoxyphene Negative 50 ng/mL ng/mL Tapentadol Negative 50 ng/mL ng/mL Temazepam Negative 50 ng/mL ng/mL Tramadol Negative 50 ng/mL ng/mL THC Negative 50 ng/mL ng/mL Amitriptyline Negative 50 ng/mL ng/mL Carboxyzolpidem Negative 100 ng/mL ng/mL Desmethyldoxepin Negative 50 ng/mL ng/mL Doxepin Negative 50 ng/mL ng/mL Imipramine Negative 50 ng/mL ng/mL Methylphenidate Negative 50 ng/mL ng/mL Nortriptyline Negative 50 ng/mL ng/mL o-Desmethyltramadol Negative 50 ng/mL ng/mL Ritalinic Acid Negative 50 ng/mL ng/mL Desalkylflurazepam Negative 50 ng/mL ng/mL Flunitrazepam Negative 50 ng/mL ng/mL Flurazepam Negative 50 ng/mL ng/mL Ketamine Negative 50 ng/mL ng/mL Meperidine Negative 50 ng/mL ng/mL Mitragynine Negative 50 ng/mL ng/mL Norhydrocodone 305 50 ng/mL ng/mL H Norketamine Negative 50 ng/mL ng/mL Normeperidine Negative 50 ng/mL ng/mL Noroxycodone Negative 50 ng/mL ng/mL PCP Negative 25 ng/mL ng/mL Phentermine Negative 50 ng/mL ng/mL Zaleplon Negative 20 ng/mL ng/mL Trazodone Negative 50 ng/mL ng/mL TSH Reviewed date:03/29/2024 02:04:29 PM Interpretation: Performing Lab: Notes/Report: TSH 1.426 0.40-4.50 mIU/L T4, FREE Reviewed date:03/29/2024 02:04:23 PM Interpretation: Performing Lab: Notes/Report: T4, FREE 1.09 0.8-1.8 ng/dL LIPID PANEL Reviewed date:03/29/2024 02:04:10 PM Interpretation: Performing Lab: Notes/Report: CHOLESTEROL 159 0-200 mg/dL HDL CHOLESTEROL 33 50 mg/dL L TRIGLYCERIDES 553 0-150 mg/dL H BUN/CREA RATIO 27.9 9-28 Ratio GLOBULIN 2.70 2.0-5.0 g/dL A/G RATIO 1.5 1.1-2.5 Ratio CHOL/HDL RATIO 4.82 COMP. METABOLIC Reviewed date:03/29/2024 02:03:56 PM Interpretation: Performing Lab: Notes/Report: SODIUM 140 135-146 mmol/L POTASSIUM 4.4 3.5-5.3 mmol/L CHLORIDE 101 98-110 mmol/L CO2 23 20-32 mmol/L GLUCOSE 287 65-139 mg/dL H BUN 24 7-25 mg/dL CREATININE 0.86 0.50-0.99 mg/dL eGFR 82.8 >60 mL/min CALCIUM 9.8 8.6-10.2 mg/dL TOTAL PROTEIN 6.7 6.1-8.1 g/dL ALBUMIN 4.0 3.6-5.1 g/dL AST 13 10-35 IU/L ALK PHOSPHATASE 107 31-125 IU/L TOTAL BILIRUBIN 0.3 0.2-1.2 mg/dL ALT 21 6-29 IU/L CBC + AutoDiff 5 Reviewed date:03/29/2024 02:04:16 PM Interpretation: Performing Lab: Notes/Report: WBC 7.75 3.8-10.80 10*3/ul RBC 5.14 3.80-5.80 10*6/ul HGB 15.7 11.7-17.1 g/dL HCT 46.1 37-47 % MCV 89.6 78-100 fL MCH 30.4 27-31 pg MCHC 33.9 32-36 % RDW 13.9 11-15 % RDW-SD 44.2 38.9-49.0 % PLATELETS 266 140-400 10^3/uL MPV 8.57 7.42-10.77 fL LYMPHOCYTES % 21.71 18.94-46.71 % LYMPHOCYTES # 1.68 0.85-3.90 10^3/uL MONOCYTES % 5.97 4.88-12.81 % MONOCYTES # 0.46 0.20-0.95 10^3/uL EOSINOPHILS % 1.11 0.74-6.73 % EOSINOPHILS # 0.09 0.00-0.50 10^3/uL BASOPHILS % 0.23 0.05-0.48 % BASOPHILS # 0.02 0.00-0.03 10^3/uL NEUTROPHILS % 70.98 40.62-71.65 % NEUTROPHILS # 5.50 1.50-7.80 10^3/uL HOMOCYSTEINE ([id number]) Reviewed date:03/30/2024 04:08:56 PM Interpretation: Performing Lab:[facility]-[id number] Chris [place], [id number] Miguel Mota MD Notes/Report: NON-FASTING HOMOCYSTEINE 9.8 <10.4 umol/L N differentiates between these deficiencies. Other causes antagonists such as methotrexate and phenytoin, and folate or vitamin B12. Testing for methylmalonic acid Aileen Carlson, et al., Radha Jai Alai Player Med. 1999;131(5):331-9. exposure to nitrous oxide. of increased homocysteine include renal failure, folate Homocysteine is increased by functional deficiency of .HEMOGLOBIN A1c (496) Reviewed date:03/30/2024 09:13:52 AM Interpretation: Performing Lab:[facility]-[id number] Chris [place], [id number] Miguel Mota MD Notes/Report: NON-FASTING HEMOGLOBIN A1c 11.3 <5.7 % of total Hgb H THE DATE THE SPECIMEN WAS RECEIVED BY THIS PHONE NUMBER: [phone] other considerations. For someone with known diabetes, a value <7% indicates that their diabetes is well controlled and a value LABORATORY THE COLLECTION DATE. IF THIS value of 6.5% or greater indicates that they may have control. A1c targets should be individualized based on duration of diabetes, age, comorbid conditions, and Currently, no consensus exists regarding use of NO COLLECTION DATE RECEIVED. WE HAVE USED diabetes and this should be confirmed with a follow-up test. For someone without known diabetes, a hemoglobin A1c hemoglobin A1c for diagnosis of diabetes for children. IS INCORRECT, PLEASE CONTACT CLIENT SERVICES. greater than or equal to 7% indicates suboptimal Presumptive Drug Test - Spec imen Type Urine Reviewed date:10/24/2024 12:27:38 PM Interpretation: Performing Lab: Notes/Report: Opiates Screen Positive 150 ng/mL ng/ml H Benzodiazepines Screen Negative 150 ng/mL ng/ml Amphetamines Screen Negative 600 ng/mL ng/ml Cocaine Screen Negative 150 ng/mL ng/ml Methadone Screen Negative 150 ng/mL ng/ml 6-CECILIA Screen Negative 60 ng/mL ng/ml Methamphetamine Screen Negative 600 ng/mL ng/ml Fentanyl Screen Negative 9 ng/mL ng/ml Tricyclic Antidepressants Screen Negative 150 ng/mL ng/ml Buprenorphine Screen Negative 75 ng/mL ng/ml Cannabis Screen Positive 150 ng/mL ng/ml H Full Confirmation - Specimen Type Urine Reviewed date:10/24/2024 12:27:38 PM Interpretation: Performing Lab: Notes/Report: 6-CECILIA Negative 20 ng/mL ng/mL 7-Aminoclonazepam Negative 50 ng/mL ng/mL a-Hydroxyalprazolam Negative 50 ng/mL ng/mL Alprazolam Negative 50 ng/mL ng/mL Amphetamine Negative 50 ng/mL ng/mL Benzoylecgonine Negative 50 ng/mL ng/mL Buprenorphine Negative 25 ng/mL ng/mL Carisoprodol Negative 50 ng/mL ng/mL Clonazepam Negative 50 ng/mL ng/mL Codeine Negative 50 ng/mL ng/mL Cyclobenzaprine Negative 50 ng/mL ng/mL Diazepam Negative 50 ng/mL ng/mL EDDP Negative 50 ng/mL ng/mL Fentanyl Negative 3 ng/mL ng/mL Gabapentin Negative 500 ng/mL ng/mL Hydrocodone >500 50 ng/mL ng/mL H Hydromorphone Negative 50 ng/mL ng/mL Lorazepam Negative 50 ng/mL ng/mL MDMA Negative 50 ng/mL ng/mL Meprobamate Negative 50 ng/mL ng/mL Methadone Negative 50 ng/mL ng/mL Methamphetamine Negative 200 ng/mL ng/mL Morphine Negative 50 ng/mL ng/mL Naloxone Negative 50 ng/mL ng/mL Naltrexone Negative 50 ng/mL ng/mL Norbuprenorphine Negative 25 ng/mL ng/mL Nordiazepam Negative 50 ng/mL ng/mL Norfentanyl Negative 10 ng/mL ng/mL Norpropoxyphene Negative 50 ng/mL ng/mL Oxazepam Negative 50 ng/mL ng/mL Oxycodone Negative 50 ng/mL ng/mL Oxymorphone Negative 50 ng/mL ng/mL Pregabalin >2000 200 ng/mL ng/mL H Propoxyphene Negative 50 ng/mL ng/mL Tapentadol Negative 50 ng/mL ng/mL Temazepam Negative 50 ng/mL ng/mL Tramadol Negative 50 ng/mL ng/mL THC >500 50 ng/mL ng/mL H Amitriptyline Negative 50 ng/mL ng/mL Carboxyzolpidem Negative 100 ng/mL ng/mL Desmethyldoxepin Negative 50 ng/mL ng/mL Doxepin Negative 50 ng/mL ng/mL Imipramine Negative 50 ng/mL ng/mL Methylphenidate Negative 50 ng/mL ng/mL Nortriptyline Negative 50 ng/mL ng/mL o-Desmethyltramadol Negative 50 ng/mL ng/mL Ritalinic Acid Negative 50 ng/mL ng/mL Desalkylflurazepam Negative 50 ng/mL ng/mL Flunitrazepam Negative 50 ng/mL ng/mL Flurazepam Negative 50 ng/mL ng/mL Ketamine Negative 50 ng/mL ng/mL Meperidine Negative 50 ng/mL ng/mL Mitragynine Negative 50 ng/mL ng/mL Norhydrocodone 300 50 ng/mL ng/mL H Norketamine Negative 50 ng/mL ng/mL Normeperidine Negative 50 ng/mL ng/mL Noroxycodone Negative 50 ng/mL ng/mL PCP Negative 25 ng/mL ng/mL Phentermine Negative 50 ng/mL ng/mL Zaleplon Negative 20 ng/mL ng/mL Trazodone Negative 50 ng/mL ng/mL RPP+ Reviewed date:10/13/2024 08:42:20 AM Interpretation: Performing Lab: Notes/Report: Ribonuclease P (Rnase P-Endogenous control) Passed 0-38 Adenovirus Not Detected 0-28 Bordetella bronchiosepta Not Detected 0-28 Bocavirus Not Detected 0-29 Bordetella parapertussis Not Detected 0-28 Bordetella pertussis Not Detected 0-28 Chlamydophila pneuomoniae Not Detected 0-27.5 Coronavirus 229E Not Detected 0-29 Coronavirus HKU1 Not Detected 0-29 Coronavirus NL63 Not Detected 0-29 Coronavirus OC43 Not Detected 0-29 Enterobacter cloacae Not Detected 0-28 Enterovirus Not Detected 0-29 Haemophilus influenzae Not Detected 0-27 Human metapneumovirus A Not Detected 0-29 Human metapneumovirus B Not Detected 0-29 Influenza A Not Detected 0-29 Influenza B Not Detected 0-29 Klebsiella aerogenes Not Detected 0-27 Klebsiella pneumoniae Not Detected 0-27 Legionella pneumophilia Not Detected 0-28 Moraxella catarrhalis Detected 0-27 H Mycoplasma pneumoniae Not Detected 0-28 Pseudomonas aeruginosa Not Detected 0-27 Pneumocystis jirovecii Not Detected 0-28 Human parainfluenza virus 1 Not Detected 0-29 Human parainfluenza virus 2 Not Detected 0-29 Human parainfluenza virus 3 Not Detected 0-29 Human parainfluenza virus 4 Not Detected 0-29 Rhinovirus A Not Detected 0-29 Rhinovirus B Not Detected 0-28 Respiratory Syncytial Virus Not Detected 0-28.50 SARS-CoV-2 (Coronavirus) Not Detected 0-29 Staphylococcus aureus Not Detected 0-28 Streptococcus pneumoniae Not Detected 0-26 Streptococcus pyogenes (Group A) Not Detected 0-28 Staphylococcus spp. with Beta-Lactams Resistance (mecA gene) Not Detected 0-25.5 Acinetobacter baumannii Not Detected 0-28 MYCOPLASMA PNEUMONIAE AB (IG G, IGM), IFA, CSF ([id number]) Reviewed date:10/17/2024 01:31:47 PM Interpretation: Performing Lab:MARY [facility],[address] [facility] Pat Fischer MD,PhD,[place] Notes/Report: NON-FASTING NON-FASTING NON-FASTING MYCOPLASMA PNEUMONIAE IGG AB, IFA (CSF) TNP N acceptable for test requested. TEST NOT PERFORMED. Transport device is not D-DIMER, QUANTITATIVE (8659) Reviewed date:10/12/2024 10:54:14 AM Interpretation: Performing Lab:KS [facility]-[id number] Chris [facility], [id number] Miguel Mota MD Notes/Report: NON-FASTING NON-FASTING NON-FASTING D-DIMER, QUANTITATIVE 0.59 <0.50 mcg/mL FEU H and . A D-dimer result less than 0.5 mcg/mL of Physicians recommends an age-adjusted cut-off value (This link is being provided for FEU. For example, the cut-off for a 70-year-old patient thrombosis and pulmonary embolism. However, since Elevated D-dimer levels are associated with DIC, FEU, in conjunction with a non-high clinical pre-test in patients older than 50. The calculation for an age For additional information, please refer to D-dimer values increase with age, the [employer] would be 70 x 0.01 mcg/mL FEU. malignancies, inflammation, sepsis, surgery, trauma, informational/educati onal purposes only.) http://education.Twist/faq/ XIP095 probability assessment model, excludes deep vein adjusted cut-off value is age (years) x 0.01 mcg/mL .CBC (INCLUDES DIFF/PLT) (63 99) Reviewed date:10/12/2024 10:54:07 AM Interpretation: Performing Lab:Mara [facility]AN[facility]-[id number] Yulissa GarcíaaKS[address] Miguel Mota MD Notes/Report: NON-FASTING NON-FASTING NON-FASTING WHITE BLOOD CELL COUNT 8.8 3.8-10.8 Thousand/uL N RED BLOOD CELL COUNT 5.11 3.80-5.10 Million/uL H HEMOGLOBIN 15.9 11.7-15.5 g/dL H HEMATOCRIT 48.2 35.0-45.0 % H MCV 94.3 80.0-100.0 fL N MCH 31.1 27.0-33.0 pg N MCHC 33.0 32.0-36.0 g/dL N value (in the range of 30 to 32 g/dL) is most likely red cell parameters and the patient's clinical For adults, a slight decrease in the calculated MCHC not clinically significant; however, it should be condition. interpreted with caution in correlation with other RDW 12.9 11.0-15.0 % N PLATELET COUNT 231 140-400 Thousand/uL N MPV 10.5 7.5-12.5 fL N ABSOLUTE NEUTROPHILS 6239 7445-1731 cells/uL N ABSOLUTE LYMPHOCYTES 9859 420-6476 cells/uL N ABSOLUTE MONOCYTES 634 200-950 cells/uL N ABSOLUTE EOSINOPHILS 114 15-500 cells/uL N ABSOLUTE BASOPHILS 53 0-200 cells/uL N NEUTROPHILS 70.9 N LYMPHOCYTES 20.0 N MONOCYTES 7.2 N EOSINOPHILS 1.3 N BASOPHILS 0.6 N .TSH W/REFLEX TO FT4 (38700) Reviewed date:10/04/2024 11:27:26 AM Interpretation: Performing Lab:Mara [facility]-[id number] Chris [facility], [id number] Miguel Mota MD Notes/Report: NON-FASTING TSH W/REFLEX TO FT4 1.33 N PHONE NUMBER: [phone] NO COLLECTION DATE RECEIVED. WE HAVE USED First trimester 0.26-2.66 IS INCORRECT, PLEASE CONTACT CLIENT SERVICES. THE DATE THE SPECIMEN WAS RECEIVED BY THIS Second trimester 0.55-2.73 Ranges Third trimester 0.43-2.91 > or = 20 Years 0.40-4.50 Reference Range LABORATORY THE COLLECTION DATE. IF THIS HEMOGLOBIN A1c % Reviewed date:10/04/2024 08:10:31 AM Interpretation: Performing Lab: Notes/Report: HEMOGLOBIN A1c % 9.40 4.5-6.3 % H BUN/CREA RATIO 29.5 9-28 Ratio H GLOBULIN 2.70 2.0-5.0 g/dL A/G RATIO 1.6 1.1-2.5 Ratio EXTRA SPECIMEN ([id number]) Reviewed date:10/12/2024 10:53:44 AM Interpretation: Performing Lab:KS, [facility]-[id number] Chris [facility], [id number] Miguel Mota MD Notes/Report: NON-FASTING NON-FASTING NON-FASTING EXTRA TUBE RECEIVED An extra specimen was received with no test requested. service department for further assistance. The specimen will be maintained in storage in case additional testing is needed. 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 Priority Routine Referral Appointment Date 04/21/2024 Medications Medication SIG (Take, Route, Frequency, Duration) Notes Start Date End Date Status Benzonatate 200 MG Capsule 1 capsule as needed Orally Three times a day; Duration: 5 days 10/11/2024 Active hydroCHLOROthiazide 12.5 mg Tablet 1 tablet Orally daily; Duration: 30 days Active rOPINIRole HCl 2 mg Tablet 1 tablet Orally daily; Duration: 30 days At bedtime Active Varenicline Tartrate 0.5 MG Tablet 1 tablet after eating Orally Twice a day; Duration: 30 days 09/21/2024 Active Magnesium 30 MG Tablet 1 tablet with a meal Orally Once a day; Duration: 30 days Every evening 07/27/2024 Active Folic Acid 1 MG Tablet 1 tablet Orally Once a day; Duration: 30 days 07/27/2024 Active Tresiba FlexTouch 200 UNIT/ML Solution Pen-injector 24 UNITS Subcutaneous daily; Duration: 90 days Active Isosorbide Mononitrate ER 30 mg Tablet Extended Release 24 Hour 1 tablet Orally daily; Duration: 30 days Active Symbicort 160-4.5 MCG/ACT Aerosol 2 puffs Inhalation twice a day; Duration: 30 days Active Dexcom G7 Sensor - Miscellaneous as directed every 10 days; Duration: 90 days 12/11/2023 Active Vitamin D (Ergocalciferol) 1.25 MG (00544 UT) Capsule 1 capsule Orally weekly; Duration: 30 days Active Levocetirizine Dihydrochloride 5 MG Tablet 1 tablet in the evening Orally Once a day; Duration: 30 days Active Atorvastatin Calcium 20 MG Tablet 1 tablet Orally Once a day; Duration: 90 days Active metFORMIN HCl ER 500 mg Tablet Extended Release 24 Hour TAKE 2 TABLETS BY MOUTH TWICE A DAY *THANK YOU AND ESTELLA LOPEZSS YOU*; Duration: 30 Active Dexcom G7 Billet Driller - Device as directed; Duration: 90 days 12/11/2023 Active Ozempic (0.25 or 0.5 MG/DOSE) 2 MG/3ML Solution Pen-injector INJECT 0.25mg SUBCUTANEOUSLY EVERY WEEK *THANK YOU AND ESTELLA ESPINOSA YOU*; Duration: 30 Active Pregabalin 200 MG Capsule 1 capsule orally three times daily; Duration: 28 days As needed 01/11/2025 Active Celecoxib 200 mg Capsule 1 capsule orall y twice a day; Duration: 30 days Increasing to José Antonio Ordoñez 12/07/2024 10:26:09 AM CDT > Active Aspirin Low Dose 81 MG Tablet Delayed Release 1 tablet Orally Once a day; Duration: 90 days Active Clopidogrel Bisulfate 75 mg Tablet 1 tablet Orally Once daily; Duration: 30 days Active Azithromycin 1 GM Packet 1 packet Orally Once a day; Duration: 5 days 2 tablets on day 1, 1 tablet day 2-5 10/11/2024 Active Terbinafine HCl 250 MG Tablet 1 tablet Orally Once a day; Duration: 30 days Active Farxiga 10 MG Tablet 1 tablet Orally Once a day; Duration: 30 days Active Lisinopril 20 mg Tablet 1 tablet Orally daily; Duration: 30 days Active amLODIPine Besylate 10 mg Tablet 1 tablet Orally daily; Duration: 30 days Active Cilostazol 100 MG Tablet TAKE 1 TABLET B Y MOUTH TWICE A DAY THANK YOU AND MAY RADHA BLESS YOU Oral; Duration: 30 Days Active HYDROcodone-Acetaminophen 10-325 MG Tablet 1 tablet as needed for pain Orally three times a day; Duration: 28 days 01/11/2025 Active Social History Social History Tobacco Use: Social Info Question Answer Notes Smoking History Are you a tobacco smoker / vaper? curr ent smoker Section Notes: started back recently. tryin g to quit again started back recently. tryin g to quit again started back recently. tryin g to quit again started back recently. tryin g to quit again started back recently. tryin g to quit again started back recently. tryin g to quit again started back recently. tryin g to quit again started back recently. tryin g to quit again started back recently. tryin g to quit again started back recently. tryin g to quit again started back recently. tryin g to quit again started back recently. tryin g to quit again started back recently. tryin g to quit again started back recently. tryin g to quit again started back recently. tryin g to quit again Problems Problem Type SNOMED Code ICD Code Onset Dates Problem Status W/U Status Risk Notes Problem Polyneuropathy due to type 2 diabetes mellitus (323951737) Type 2 diabetes mellitus with diabetic polyneuropathy (E11.42) Active confirmed Problem Hyperglycemia due to type 2 diabetes mellitus (377569393775292) Type 2 diabetes mellitus with hyperglycemia (E11.65) Active confirmed Problem Tobacco user (752852536) Nicotine dependence, cigarettes, uncomplicated (F17.210) Active confirmed Problem Mild major depression, single episode (85087470) Major depressive disorder, single episode, mild (F32.0) Active confirmed Problem Restless legs syndrome (21756586) Restless legs syndrome (G25.81) Active confirmed Problem Chronic pain syndrome (080944866) Chronic pain syndrome (G89.4) Active confirmed Problem Essential hypertension (20032859) Essential (primary) hypertension (I10) Active confirmed Problem Lumbar spinal fusion (procedure) (54717502) Fusion of spine, lumbar region (M43.26) Active confirmed Problem Degeneration of cervical intervertebral disc (04741296) Other cervical disc degeneration, 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) Active confirmed Problem Overactive bladder (706993106) Overactive bladder (N32.81) Active confirmed Problem Lack of physical exercise (94510791) Lack of physical exercise (Z72.3) Active confirmed Problem 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 (471542532) 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) Active confirmed Problem High risk drug monitoring status (898239125) 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) Active confirmed Problem 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 (203518615) Long-term insulin use (Z79.4) Active confirmed Problem Obese class I (714401231815670) BMI 33.0-33.9,adult (Z68.33) Active confirmed Problem Obesity (048086251) Obesity (BMI 30-39.9) (E66.9) Active confirmed Problem Angina pectoris (242438496) Angina pectoris (I20.9) Active confirmed Problem Atherosclerotic heart disease of [place] coronary artery without angina pectoris (146663799915605) Atherosclerosis of coronary artery of [place] heart, angina presence unspecified, unspecified vessel or lesion type (I25.10) Active confirmed Problem Peripheral vascular disease (248048239) Peripheral vascular disease of lower extremity (I73.9) Active confirmed Problem History of placement of stent for coronary artery disease (situation) (706399370) S/P coronary artery stent placement (Z95.5) Active confirmed Problem History of myocardial infarction (767159105) History of myocardial infarction (I25.2) Active confirmed Problem Chronic obstructive pulmonary disease (96632467) COPD, moderate (J44.9) Active confirmed Problem BMI 30+ - obesity (723057437) BMI 32.0-32.9,adult (Z68.32) Active confirmed Problem Vitamin D deficiency (12673027) Vitamin D deficiency (E55.9) Active confirmed Problem Surgical menopause (260433168) Surgical menopause (E89.40) Active confirmed Problem Atherosclerosis of [place] coronary artery of [place] heart with angina pectoris with documented spasm (I25.111) Active confirmed Problem Nicotine dependence (22129026) Cigarette nicotine dependence with other nicotine-induced disorder (F17.218) Active confirmed Problem Myofascial low back pain (6492098795) Myofascial low back pain (M54.50) Active confirmed Problem Acute exacerbation of chronic obstructive pulmonary disease (228359970) Acute exacerbation of chronic obstructive pulmonary disease (J44.1) Active confirmed Problem Degeneration of intervertebral disc of lumbosacral region with discogenic back pain and lower extremity pain (M51.372) Active confirmed Vital Signs Heart Rate 90 /min 01/11/2025 Temperature 97.1 degrees Fahrenheit 12/14/2024 Respiratory Rate 18 /min 01/11/2025 Blood pressure diastolic 70 mm Hg 01/11/2025 Oximetry 98 % 01/11/2025 Height-cm 165.1 cm 01/11/2025 Weight-kg 91.63 kg 01/11/2025 Height 65 in 01/11/2025 Blood pressure systolic 122 mm Hg 01/11/2025 Weight 202 lbs 01/11/2025 BMI 33.61 kg/m2 01/11/2025 Encounters Encounter Location Date Provider Diagnosis [facility] [address] [facility] [place] [address] 03/17/2024 Traci Loo Fusion of spine of lumbar region M43.26 [facility] [place] [address] [place] [address] 04/27/2024 José Antonio Esquivel Other intervertebral disc degeneration, lumbosacral region without mention of lumbar back pain or lower extremity pain M51.379 ; Other cervical disc degeneration, cervicothoracic region M50.33 ; Chronic pain syndrome G89.4 and MCC (current) use of opiate analgesic Z79.891 [facility] [place] [address] [facility] [place] [address] 10/03/2024 José Antonio Esquivel Essential (primary) hypertension I10 and Type 2 diabetes mellitus with hyperglycemia E11.65 [facility] [place] [address] [facility] [place] [address] 10/11/2024 José Antonio Esquivel Upper respiratory tract infection, unspecified type J06.9 and Acute bronchitis, unspecified organism J20.9 [facility] [address] [place] [place] [address] 10/11/2024 José Antonio Esquivel Cough, unspecified type R05.9 1 [facility] [address] [place] [address] 10/11/2024 José Antonio Esquivel Bacterial infection A49.9 [facility] [place] [address] [place] [address] 10/11/2024 José Antonio Esquivel Acute upper respiratory infection, unspecified J06.9 and Resistance to multiple antibiotics Z16.24 901 [facility] [address] [place] [address] 10/11/2024 José Antonio Esquivel Acute cough R05.1 901 [facility] [address] [place] [address] 10/11/2024 José Antonio Esquivel Acute exacerbation of chronic obstructive pulmonary disease J44.1 [facility] [place] [address] [place] [address] 10/19/2024 José Antonio Esquivel MCC (current) use of opiate analgesic Z79.891 and 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.899 9[address] [facility] [address] [place] [address] 10/31/2024 José Antonio Esquivel Essential (primary) hypertension I10 901 [facility] [address] [place] [address] 11/08/2024 José Antonio Esquivel Atherosclerosis of [place] coronary artery of [place] heart with angina pectoris with documented spasm I25.111 and Dizziness R42 901 [facility] [address] [place] [address] 02/24/2024 Muna Mijares Chronic pain syndrom e G89.4 ; MCC (current) use of opiate analgesic Z79.891 ; Other intervertebral disc degeneration, lumbosacral region M51.37 ; Fusion of spine, lumbar region M43.26 ; Lack of physical exercise Z72.3 and Other cervical disc degeneration, cervicothoracic region M50.33 [address] [facility] [address] [place] [address] 02/29/2024 José Antonio Esquivel Essential (primary) hypertension I10 ; Type 2 diabetes mellitus with diabetic polyneuropathy, without long-term current use of insulin E11.42 ; Restless legs syndrome G25.81 ; Major depressive disorder, single episode, mild F32.0 ; Angina pectoris I20.9 ; Hyperlipidemia, unspecified hyperlipidemia type E78.5 ; Vitamin D deficiency E55.9 ; Chronic obstructive pulmonary disease, unspecified COPD type J44.9 ; Fusion of spine, lumbar region M43.26 ; Peripheral vascular disease of lower extremity I73.9 ; Segmental and somatic dysfunction of thoracic region M99.02 and Nicotine dependence, cigarettes, uncomplicated F17.[address] [place] [address] [facility] [address] [place] [address] 03/28/2024 José Antonio Esquivel Type 2 diabetes mellitus with hyperglycemia E11.65 ; Type 2 diabetes mellitus with diabetic polyneuropathy, without long-term current use of insulin E11.42 ; Essential (primary) hypertension I10 ; Restless legs syndrome G25.81 ; Peripheral vascular disease of lower extremity I73.9 ; Atherosclerosis of coronary artery of [place] heart, angina presence unspecified, unspecified vessel or lesion type I25.10 and S/P coronary artery stent placement Z95.5 [facility] [address] [place] [address] 03/28/2024 Traci Loo Type 2 diabetes mellitus with diabetic polyneuropathy E11.42 and Arteriosclerosis of coronary artery I25.[address] [place] [address] [facility] [address] [place] [address] 03/30/2024 José Antonio Esquivel Chronic pain syndrome G89.4 ; 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 ; Other intervertebral disc degeneration, lumbosacral region M51.37 ; Fusion of spine, lumbar region M43.26 ; Lack of physical exercise Z72.3 and Other cervical disc degeneration, cervicothoracic region M50.[address] [place] [address] Medical [facility] [address] [place] [address] 04/25/2024 José Antonio Esquivel Type 2 diabetes mellitus with hyperglycemia E11.65 ; Type 2 diabetes mellitus with diabetic polyneuropathy, without long-term current use of insulin E11.42 ; Essential (primary) hypertension I10 ; Restless legs syndrome G25.81 ; Peripheral vascular disease of lower extremity I73.9 ; Atherosclerosis of coronary artery of [place] heart, angina presence unspecified, unspecified vessel or lesion type I25.10 ; S/P coronary artery stent placement Z95.5 ; Fusion of spine, lumbar region M43.26 and Surgical menopause E89.40 1 [facility] [address] [address] 04/27/2024 José Antonio Esquivel Chronic pain syndrome G89.4 ; 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 ; Other intervertebral disc degeneration, lumbosacral region M51.37 ; Fusion of spine, lumbar region M43.26 ; Lack of physical exercise Z72.3 and Other cervical disc degeneration, cervicothoracic region M50.[address] [address] 05/03/2024 José Antonio Esquivel Type 2 diabetes mellitus with hyperglycemia E11.65 ; Essential (primary) hypertension I10 ; Restless legs syndrome G25.81 ; Peripheral vascular disease of lower extremity I73.9 ; Atherosclerosis of coronary artery of [place] heart, angina presence unspecified, unspecified vessel or lesion type I25.10 ; S/P coronary artery stent placement Z95.5 ; Fusion of spine, lumbar region M43.26 ; Surgical menopause E89.40 ; Type 2 diabetes mellitus with diabetic polyneuropathy E11.42 ; MCC (current) use of insulin Z79.4 and Dental caries K02.[address] [address] 05/25/2024 José Antonio Esquivel Chronic pain syndrome G89.4 ; 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 ; Fusion of spine, lumbar region M43.26 ; Lack of physical exercise Z72.3 ; Other cervical disc degeneration, cervicothoracic region M50.33 ; Myofascial low back pain M54.50 ; Degeneration of intervertebral disc of lumbosacral region with discogenic back pain and lower extremity pain M51.372 and BMI 33.0-33.9,adult Z68.[address] [address] 06/02/2024 Muna Mijares Type 2 diabetes mellitus with hyperglycemia E11.65 ; Essential (primary) hypertension I10 ; Restless legs syndrome G25.81 ; Peripheral vascular disease of lower extremity I73.9 ; Atherosclerosis of coronary artery of [place] heart, angina presence unspecified, unspecified vessel or lesion type I25.10 ; S/P coronary artery stent placement Z95.5 ; Fusion of spine, lumbar region M43.26 and MCC (current) use of insulin Z79.4 1 [facility] [address] [place] [address] 06/29/2024 José Antonio Esquivel Chronic pain syndrome G89.4 ; 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 ; Fusion of spine, lumbar region M43.26 ; Lack of physical exercise Z72.3 ; Other cervical disc degeneration, cervicothoracic region M50.33 ; Myofascial low back pain M54.50 ; Degeneration of intervertebral disc of lumbosacral region with discogenic back pain and lower extremity pain M51.372 and BMI 33.0-33.9,adult Z68.33 [facility] [address] [place] [address] 06/29/2024 José Antonio Esquivel 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 ; MCC use of drug Z79.899 ; Chronic pain syndrome G89.4 and Acute low back pain, unspecified back pain laterality, unspecified whether sciatica present M54.[address] [place] [address] [facility] [address] [place] [address] 07/04/2024 José Antonio Esquivel Type 2 diabetes mellitus with hyperglycemia E11.65 ; Type 2 diabetes mellitus with diabetic polyneuropathy E11.42 ; Essential (primary) hypertension I10 ; Restless legs syndrome G25.81 ; Peripheral vascular disease of lower extremity I73.9 ; Atherosclerosis of coronary artery of [place] heart, angina presence unspecified, unspecified vessel or lesion type I25.10 ; S/P coronary artery stent placement Z95.5 ; Fusion of spine, lumbar region M43.26 and 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.4 1 [facility] [address] [place] [address] 07/04/2024 José Antonio Esquivel Annual visit for general adult medical examination with abnormal findings Z00.01 ; Encounter for immunization Z23 ; Screen for colon cancer Z12.11 ; Screening mammogram for breast cancer Z12.31 ; Screening for cervical cancer Z12.4 ; Encounter for smoking cessation counseling Z71.6 ; Obesity (BMI 30-39.9) E66.9 and Overactive bladder N32.81 901 [facility] [address] [place] [address] 07/27/2024 José Antonio Esquivel Chronic pain syndrome G89.4 ; MCC (current) use of opiate analgesic Z79.891 ; Fusion of spine, lumbar region M43.26 ; Lack of physical exercise Z72.3 ; Other cervical disc degeneration, cervicothoracic region M50.33 ; Myofascial low back pain M54.50 ; Degeneration of intervertebral disc of lumbosacral region with discogenic back pain and lower extremity pain M51.372 ; BMI 33.0-33.9,adult Z68.33 and Type 2 diabetes mellitus with diabetic polyneuropathy E11.[address] [address] 08/24/2024 José Antoniotraci Esquivel Chronic pain syndrome G89.4 ; 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 ; Fusion of spine, lumbar region M43.26 ; Lack of physical exercise Z72.3 ; Other cervical disc degeneration, cervicothoracic region M50.33 ; Myofascial low back pain M54.50 ; Degeneration of intervertebral disc of lumbosacral region with discogenic back pain and lower extremity pain M51.372 ; BMI 33.0-33.9,adult Z68.33 ; Type 2 diabetes mellitus with diabetic polyneuropathy E11.42 and Peripheral vascular disease of lower extremity I73.9 [facility] [place] [address] [place] [address] 08/24/2024 José Antoniotraci Esquivel 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 and MCC use of drug Z79.[address] [place] [address] 09/21/2024 José Antonio Esquivel Chronic pain syndrome G89.4 ; 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 ; Fusion of spine, lumbar region M43.26 ; Lack of physical exercise Z72.3 ; Other cervical disc degeneration, cervicothoracic region M50.33 ; Myofascial low back pain M54.50 ; Degeneration of intervertebral disc of lumbosacral region with discogenic back pain and lower extremity pain M51.372 ; BMI 33.0-33.9,adult Z68.33 ; Type 2 diabetes mellitus with diabetic polyneuropathy E11.42 ; Peripheral vascular disease of lower extremity I73.9 ; Cigarette nicotine dependence with other nicotine-induced disorder F17.218 and Segmental and somatic dysfunction of thoracic region M99.02 [address] [facility] [address] [place] [phone] 10/03/2024 José Antonio Esquivel Type 2 diabetes mellitus with diabetic polyneuropathy, without long-term current use of insulin E11.42 ; Type 2 diabetes mellitus with hyperglycemia E11.65 ; Essential (primary) hypertension I10 ; Angina pectoris I20.9 ; Restless legs syndrome G25.81 ; Cigarette nicotine dependence with other nicotine-induced disorder F17.218 ; Chronic obstructive pulmonary disease, unspecified COPD type J44.9 ; Peripheral vascular disease of lower extremity I73.9 ; Obesity (BMI 30-39.9) E66.9 ; Overactive bladder N32.81 ; Long-term insulin use Z79.4 ; History of myocardial infarction I25.2 ; S/P coronary artery stent placement Z95.5 and Atherosclerosis of [place] coronary artery of [place] heart with angina pectoris with documented spasm I25.111 [address] [facility] [address] [place] [phone] 10/11/2024 José Antonio Esquivel Type 2 diabetes mellitus with hyperglycemia E11.65 ; Acute exacerbation of chronic obstructive pulmonary disease J44.1 ; 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.4 ; Type 2 diabetes mellitus with diabetic polyneuropathy E11.42 ; Acute cough R05.1 ; Upper respiratory tract infection, unspecified type J06.9 and Acute bronchitis, unspecified organism J20.9 [address] [facility] [address] [place] [phone] 10/19/2024 José Antonio Esquivel Chronic pain syndrome G89.4 ; 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 ; Fusion of spine, lumbar region M43.26 ; Lack of physical exercise Z72.3 ; Other cervical disc degeneration, cervicothoracic region M50.33 ; Myofascial low back pain M54.50 ; Degeneration of intervertebral disc of lumbosacral region with discogenic back pain and lower extremity pain M51.372 ; BMI 33.0-33.9,adult Z68.33 ; Type 2 diabetes mellitus with diabetic polyneuropathy E11.42 ; Peripheral vascular disease of lower extremity I73.9 ; Cigarette nicotine dependence with other nicotine-induced disorder F17.218 and Segmental and somatic dysfunction of thoracic region M99.02 [address] [facility] [address] [place] [phone] 11/08/2024 José Antonio Esquivel Cigarette nicotine dependence with other nicotine-induced disorder F17.218 ; Type 2 diabetes mellitus with hyperglycemia E11.65 ; Type 2 diabetes mellitus with diabetic polyneuropathy E11.42 ; Atherosclerosis of coronary artery of [place] heart, angina presence unspecified, unspecified vessel or lesion type I25.10 ; S/P coronary artery stent placement Z95.5 ; History of myocardial infarction I25.2 ; BMI 32.0-32.9,adult Z68.32 and COPD, moderate J44.9 [address] [facility] [address] [place] [phone] 11/16/2024 José Antonio Esquivel Chronic pain syndrome G89.4 ; 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 ; Fusion of spine, lumbar region M43.26 ; Other cervical disc degeneration, cervicothoracic region M50.33 ; Myofascial low back pain M54.50 ; Degeneration of intervertebral disc of lumbosacral region with discogenic back pain and lower extremity pain M51.372 ; BMI 33.0-33.9,adult Z68.33 ; Type 2 diabetes mellitus with diabetic polyneuropathy E11.42 ; Peripheral vascular disease of lower extremity I73.9 and Segmental and somatic dysfunction of thoracic region M99.02 [address] [facility] [address] [place] [phone] 12/14/2024 José Antonio Esquivel Chronic pain syndrome G89.4 ; 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 ; Fusion of spine, lumbar region M43.26 ; Other cervical disc degeneration, cervicothoracic region M50.33 ; Myofascial low back pain M54.50 ; Degeneration of intervertebral disc of lumbosacral region with discogenic back pain and lower extremity pain M51.372 ; BMI 33.0-33.9,adult Z68.33 ; Type 2 diabetes mellitus with diabetic polyneuropathy E11.42 ; Peripheral vascular disease of lower extremity I73.9 and Segmental and somatic dysfunction of thoracic region M99.02 [address] [facility] [address] [place] [address] 01/11/2025 José Antonio Sierra Chronic pain syndrome G89.4 ; [facility] (current) use of opiate analgesic Z79.891 ; Fusion of spine, lumbar region M43.26 ; Other cervical disc degeneration, cervicothoracic region M50.33 ; Myofascial low back pain M54.50 ; Degeneration of intervertebral disc of lumbosacral region with discogenic back pain and lower extremity pain M51.372 ; BMI 33.0-33.9,adult Z68.33 ; Type 2 diabetes mellitus with diabetic polyneuropathy E11.42 ; Peripheral vascular disease of lower extremity I73.9 and Segmental and somatic dysfunction of thoracic region M99.02 [address] [facility] [address] [place] [address] 02/24/2024 José Antoniotraci Esquivel Chronic pain syndrome G89.4 [address] [facility] [address] [place] [phone] 04/14/2024 José Antonio Esquivel Chronic pain syndrome G89.4 [address] [facility] [address] [place] [address] 08/24/2024 José Antonio Esquivel [address] [facility] [address] [place] [phone] 10/11/2024 José Antonio Esquivel [address] [facility] [address] [place] [phone] 10/11/2024 José Antonio Esquivel [address] [facility] [address] [place] [phone] 12/07/2024 José Antonio Esquivel [address] [facility] [address] [place] [phone] 01/11/2025 José Antonio Esquivel Assessments Encounter Date Diagnosis (ICD Code) Assessment Notes Treatment Notes Treatment Clinical Notes Section Notes 02/29/2024 Essential (primary) hypertension (ICD-10 - I10) 02/29/2024 Type 2 diabetes mellitus with diabetic polyneuropathy, without long-term current use of insulin (ICD-10 - E11.42) 03/17/2024 Fusion of spine of lumbar region (ICD-10 - M43.26) 02/24/2024 Chronic pain syndrome (ICD-10 - G89.4) 02/24/2024 Chronic pain syndrome (ICD-10 - G89.4) 03/28/2024 Type 2 diabetes mellitus with diabetic polyneuropathy (ICD-10 - E11.42) 03/28/2024 Arteriosclerosis of coronary artery (ICD-10 - I25.10) 03/28/2024 Type 2 diabetes mellitus with hyperglycemia (ICD-10 - E11.65) 03/28/2024 Type 2 diabetes mellitus with diabetic polyneuropathy, without long-term current use of insulin (ICD-10 - E11.42) 03/30/2024 Chronic pain syndrome (ICD-10 - G89.4) 04/14/2024 Chronic pain syndrome (ICD-10 - G89.4) 04/25/2024 Type 2 diabetes mellitus with hyperglycemia (ICD-10 - E11.65) 04/25/2024 Type 2 diabetes mellitus with diabetic polyneuropathy, without long-term current use of insulin (ICD-10 - E11.42) Patient was counseled on dietary and nutrition recommendations . Patient was told to increase dietary fats including omega-3 fatty acids to decrease inflammation. 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 non compliant with ADA diet. pt to increase metformin to 1000 er bid, increase treseba to 24 units daily. fermentation operator discussed and strongly encouraged. pt fto avoid refined sugars and gluten. statin increased to 40mg daiy. bring medicaitons to update list 06/02/2024 Essential (primary) hypertension (ICD-10 - I10) 06-02-24 lipitor doubled to 40mg. extensive edu on snf affects of uncontrolled dm. non compliant with ADA diet. pt to increase metformin to 1000 er bid, increase treseba to 24 units daily. fermentation operator discussed and strongly encouraged. pt fto avoid refined sugars and gluten. statin increased to 40mg daiy. 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 non compliant with ADA diet. pt to increase metformin to 1000 er bid, increase treseba to 24 units daily. fermentation operator discussed and strongly encouraged. pt fto avoid refined sugars and gluten. statin increased to 40mg daiy. bring medicaitons to update list 07/04/2024 Type 2 diabetes mellitus with hyperglycemia (ICD-10 - E11.65) 06-02-24 lipitor doubled to 40mg. extensive edu on snf affects of uncontrolled dm. non compliant with ADA diet. pt to increase metformin to 1000 er bid, increase treseba to 24 units daily. fermentation operator discussed and strongly encouraged. pt fto avoid refined sugars and gluten. statin increased to 40mg daiy. bring medicaitons to update list 07/04/2024 Encounter for immunization (ICD-10 - Z23) Patient was instructed on going to the health department for obtaining her complement of vaccines. They will be able to go over everything she needs currently. She understands that she needs to be current on her shingles, pneumonia, COVID, influenza and RSV vaccines. 07/04/2024 Annual visit for general adult medical examination with abnormal findings (ICD-10 - Z00.01) Discussed with patient hydration, nutrition, fall precaution, home safety, activity of daily living, and cognitive function. Discussed age appropriate screening test. Also discussed immunization. 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) 09/21/2024 Chronic pain syndrome (ICD-10 - G89.4) 10/03/2024 Type 2 diabetes mellitus with hyperglycemia (ICD-10 - E11.65) 10/03/2024 Essential (primary) hypertension (ICD-10 - I10) 10/03/2024 Type 2 diabetes mellitus with hyperglycemia (ICD-10 - E11.65) 10/03/2024 Type 2 diabetes mellitus with diabetic polyneuropathy, without long-term current use of insulin (ICD-10 - E11.42) 10/11/2024 Upper respiratory tract infection, unspecified type (ICD-10 - J06.9) 10/11/2024 Acute bronchitis, unspecified organism (ICD-10 - J20.9) 10/11/2024 Acute upper respiratory infection, unspecified (ICD-10 - J06.9) 10/11/2024 Type 2 diabetes mellitus with hyperglycemia (ICD-10 - E11.65) 10/11/2024 Acute exacerbation of chronic obstructive pulmonary disease (ICD-10 - J44.1) 10/11/2024 Acute cough (ICD-10 - R05.1) 10/11/2024 Cough, unspecified type (ICD-10 - R05.9) 10/11/2024 Bacterial infection (ICD-10 - A49.9) 10/11/2024 Acute exacerbation of chronic obstructive pulmonary disease (ICD-10 - J44.1) 10/19/2024 Chronic pain syndrome (ICD-10 - G89.4) 10/31/2024 Essential (primary) hypertension (ICD-10 - I10) 11/08/2024 Dizziness (ICD-10 - R42) 11/08/2024 Atherosclerosis of [place] coronary artery of [place] heart with angina pectoris with documented spasm (ICD-10 - I25.111) 11/08/2024 Type 2 diabetes mellitus with hyperglycemia (ICD-10 - E11.65) 10/19/2024 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 We have increased the 7.5 mg to 4 times daily and she is still not under adequate pain control. She is requesting to go to the 10 mg dose. We will start this new dosage today and find what her genetic make-up is so that we can better adjust narcotic pain medication to her needs. 11/08/2024 Cigarette nicotine dependence with other nicotine-induced disorder (ICD-10 - F17.218) Patient is encouraged to continue her smoking cessation progress. She needs to be off the cigarettes in order for her health to continue to improve. 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) 11/16/2024 Fusion of spine, lumbar region (ICD-10 - M43.26) 10/19/2024 petroleum terminal plant operator use of drug (ICD-10 - Z79.899) 11/08/2024 Type 2 diabetes mellitus with diabetic polyneuropathy (ICD-10 - E11.42) 10/19/2024 MCC (current) use of opiate analgesic (ICD-10 - Z79.891) 10/11/2024 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 (ICD-10 - Z79.4) 10/11/2024 Resistance to multiple antibiotics (ICD-10 - Z16.24) 10/03/2024 Essential (primary) hypertension (ICD-10 - I10) 09/21/2024 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 07/04/2024 Essential (primary) hypertension (ICD-10 - I10) 06-02-24 lipitor doubled to 40mg. 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 non compliant with ADA diet. pt to increase metformin to 1000 er bid, increase treseba to 24 units daily. fermentation operator discussed and strongly encouraged. pt fto avoid refined sugars and gluten. statin increased to 40mg daiy. bring medicaitons to update list 06/29/2024 Chronic pain syndrome (ICD-10 - G89.4) 06/29/2024 MCC (current) use of opiate analgesic (ICD-10 - Z79.891) 06/02/2024 Restless legs syndrome (ICD-10 - G25.81) 06-02-24 lipitor doubled to 40mg. extensive edu on snf affects of uncontrolled dm. non compliant with ADA diet. pt to increase metformin to 1000 er bid, increase treseba to 24 units daily. fermentation operator discussed and strongly encouraged. pt fto avoid refined sugars and gluten. statin increased to 40mg daiy. 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) 02/29/2024 Restless legs syndrome (ICD-10 - G25.81) 02/29/2024 Major depressive disorder, single episode, mild (ICD-10 - F32.0) 02/24/2024 Other intervertebral disc degeneration, lumbosacral region (ICD-10 - M51.37) 03/28/2024 Restless legs syndrome (ICD-10 - G25.81) 04/25/2024 Restless legs syndrome (ICD-10 - G25.81) 03/30/2024 Other intervertebral disc degeneration, lumbosacral region (ICD-10 - M51.37) 04/27/2024 Other intervertebral disc degeneration, lumbosacral region (ICD-10 - M51.37) 04/27/2024 MCC (current) use of opiate analgesic (ICD-10 - Z79.891) 05/03/2024 Peripheral vascular disease of lower extremity (ICD-10 - I73.9) 06/29/2024 Fusion of spine, lumbar region (ICD-10 - M43.26) 06/29/2024 Acute low back pain, unspecified back pain laterality, unspecified whether sciatica present (ICD-10 - M54.50) 06/02/2024 Peripheral vascular disease of lower extremity (ICD-10 - I73.9) 06-02-24 lipitor doubled to 40mg. 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 non compliant with ADA diet. pt to increase metformin to 1000 er bid, increase treseba to 24 units daily. fermentation operator discussed and strongly encouraged. pt fto avoid refined sugars and gluten. statin increased to 40mg daiy. bring medicaitons to update list 05/25/2024 Lack of physical exercise (ICD-10 - Z72.3) 07/04/2024 Restless legs syndrome (ICD-10 - G25.81) 06-02-24 lipitor doubled to 40mg. 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 non compliant with ADA diet. pt to increase metformin to 1000 er bid, increase treseba to 24 units daily. fermentation operator discussed and strongly encouraged. pt fto avoid refined sugars and gluten. statin increased to 40mg daiy. bring medicaitons to update list 07/04/2024 Screening mammogram for breast cancer (ICD-10 - Z12.31) We will set this up for next visit. 07/27/2024 Fusion of spine, lumbar region (ICD-10 - M43.26) 08/24/2024 Fusion of spine, lumbar region (ICD-10 - M43.26) 09/21/2024 Fusion of spine, lumbar region (ICD-10 - M43.26) 10/03/2024 Angina pectoris (ICD-10 - I20.9) 10/11/2024 Type 2 diabetes mellitus with diabetic polyneuropathy (ICD-10 - E11.42) 10/19/2024 Fusion of spine, lumbar region (ICD-10 - M43.26) 11/08/2024 Atherosclerosis of coronary artery of [place] heart, angina presence unspecified, unspecified vessel or lesion type (ICD-10 - I25.10) 11/16/2024 Other cervical disc degeneration, cervicothoracic region (ICD-10 - M50.33) 12/14/2024 Fusion of spine, lumbar region (ICD-10 - M43.26) 01/11/2025 Fusion of spine, lumbar region (ICD-10 - M43.26) 01/11/2025 Other cervical disc degeneration, cervicothoracic region (ICD-10 - M50.33) 12/14/2024 Other cervical disc degeneration, cervicothoracic region (ICD-10 - M50.33) 11/16/2024 Myofascial low back pain (ICD-10 - M54.50) 11/08/2024 S/P coronary artery stent placement (ICD-10 - Z95.5) 10/19/2024 Lack of physical exercise (ICD-10 - Z72.3) 10/11/2024 Acute cough (ICD-10 - R05.1) 09/21/2024 Lack of physical exercise (ICD-10 - Z72.3) 10/03/2024 Restless legs syndrome (ICD-10 - G25.81) 07/27/2024 Lack of physical exercise (ICD-10 - Z72.3) 08/24/2024 Lack of physical exercise (ICD-10 - Z72.3) 07/04/2024 Screening for cervical cancer (ICD-10 - Z12.4) We will encourage her to come in for a female exam. 07/04/2024 Peripheral vascular disease of lower extremity (ICD-10 - I73.9) 06-02-24 lipitor doubled to 40mg. 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 non compliant with ADA diet. pt to increase metformin to 1000 er bid, increase treseba to 24 units daily. fermentation operator discussed and strongly encouraged. pt fto avoid refined sugars and gluten. statin increased to 40mg daiy. bring medicaitons to update list 06/02/2024 Atherosclerosis of coronary artery of [place] heart, angina presence unspecified, unspecified vessel or lesion type (ICD-10 - I25.10) 06-02-24 lipitor doubled to 40mg. extensive edu on snf affects of uncontrolled dm. non compliant with ADA diet. pt to increase metformin to 1000 er bid, increase treseba to 24 units daily. fermentation operator discussed and strongly encouraged. pt fto avoid refined sugars and gluten. statin increased to 40mg daiy. bring medicaitons to update list 06/29/2024 Lack of physical exercise (ICD-10 - Z72.3) 05/03/2024 Atherosclerosis of coronary artery of [place] heart, angina presence unspecified, unspecified vessel or lesion type (ICD-10 - I25.10) 05/25/2024 Other cervical disc degeneration, cervicothoracic region (ICD-10 - M50.33) 04/25/2024 Peripheral vascular disease of lower extremity (ICD-10 - I73.9) We will initiate physical therapy, since the head chopper has not started this yet. 04/27/2024 Fusion of spine, lumbar region (ICD-10 - M43.26) 03/30/2024 Fusion of spine, lumbar region (ICD-10 - M43.26) 03/28/2024 Peripheral vascular disease of lower extremity (ICD-10 - I73.9) We will initiate physical therapy, since the head chopper has not started this yet. 02/24/2024 Fusion of spine, lumbar region (ICD-10 - M43.26) 02/29/2024 Angina pectoris (ICD-10 - I20.9) 02/29/2024 Hyperlipidemia, unspecified hyperlipidemia type (ICD-10 - E78.5) 02/24/2024 Lack of physical exercise (ICD-10 - Z72.3) 03/30/2024 Lack of physical exercise (ICD-10 - Z72.3) 03/28/2024 Atherosclerosis of coronary artery of [place] heart, angina presence unspecified, unspecified vessel or lesion type (ICD-10 - I25.10) 04/25/2024 Atherosclerosis of coronary artery of [place] heart, angina presence unspecified, unspecified vessel or lesion type (ICD-10 - I25.10) 04/27/2024 Lack of physical exercise (ICD-10 - Z72.3) 05/25/2024 Myofascial low back pain (ICD-10 - M54.50) This patient is counseled on the myofascial release technique for the lumbosacral region. This was demonstrated in the office and the patient seems to have grasped the idea of what to do. She is instructed on doing this on a daily basis to help relieve some of her pain. 05/03/2024 S/P coronary artery stent placement (ICD-10 - Z95.5) 06/29/2024 Other cervical disc degeneration, cervicothoracic region (ICD-10 - M50.33) 06/02/2024 S/P coronary artery stent placement (ICD-10 - Z95.5) 06-02-24 lipitor doubled to 40mg. extensive edu on snf affects of uncontrolled dm. non compliant with ADA diet. pt to increase metformin to 1000 er bid, increase treseba to 24 units daily. fermentation operator discussed and strongly encouraged. pt fto avoid refined sugars and gluten. statin increased to 40mg daiy. bring medicaitons to update list 07/04/2024 Atherosclerosis of coronary artery of [place] heart, angina presence unspecified, unspecified vessel or lesion type (ICD-10 - I25.10) 06-02-24 lipitor doubled to 40mg. 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 non compliant with ADA diet. pt to increase metformin to 1000 er bid, increase treseba to 24 units daily. fermentation operator discussed and strongly encouraged. pt fto avoid refined sugars and gluten. statin increased to 40mg daiy. bring medicaitons to update list 07/04/2024 Encounter for smoking cessation counseling (ICD-10 - Z71.6) 08/24/2024 Other cervical disc degeneration, cervicothoracic region (ICD-10 - M50.33) 07/27/2024 Other cervical disc degeneration, cervicothoracic region (ICD-10 - M50.33) 09/21/2024 Other cervical disc degeneration, cervicothoracic region (ICD-10 - M50.33) 10/11/2024 Upper respiratory tract infection, unspecified type (ICD-10 - J06.9) 10/19/2024 Other cervical disc degeneration, cervicothoracic region (ICD-10 - M50.33) 11/08/2024 History of myocardial infarction (ICD-10 - I25.2) 10/03/2024 Cigarette nicotine dependence with other nicotine-induced disorder (ICD-10 - F17.218) 11/16/2024 Degeneration of intervertebral disc of lumbosacral region with discogenic back pain and lower extremity pain (ICD-10 - M51.372) 12/14/2024 Myofascial low back pain (ICD-10 - M54.50) 01/11/2025 Myofascial low back pain (ICD-10 - M54.50) 01/11/2025 Degeneration of intervertebral disc of lumbosacral region with discogenic back pain and lower extremity pain (ICD-10 - M51.372) 12/14/2024 Degeneration of intervertebral disc of lumbosacral region with discogenic back pain and lower extremity pain (ICD-10 - M51.372) 11/16/2024 BMI 33.0-33.9,adult (ICD-10 - Z68.33) 10/19/2024 Myofascial low back pain (ICD-10 - M54.50) 11/08/2024 BMI 32.0-32.9,adult (ICD-10 - Z68.32) 10/11/2024 Acute bronchitis, unspecified organism (ICD-10 - J20.9) 08/24/2024 Myofascial low back pain (ICD-10 - M54.50) This patient is counseled on core strengthening exercises. This was demonstrated in the office and the patient seems to have grasped the idea of what to do. She is instructed on doing this on a daily basis to help relieve some of her pain. She is encouraged to do planks at an incline until she reaches fatigued. Leg lifts, hip thrusts, and alternating bird dog poses were demonstrated as well. José Antonio Esquivel 08/24/2024 02:00:24 PM CDT > 09/21/2024 Myofascial low back pain (ICD-10 - M54.50) This patient is counseled on core strengthening exercises. This was demonstrated in the office and the patient seems to have grasped the idea of what to do. She is instructed on doing this on a daily basis to help relieve some of her pain. She is encouraged to do planks at an incline until she reaches fatigued. Leg lifts, hip thrusts, and alternating bird dog poses were demonstrated as well. José Antonio Esquivel 08/24/2024 02:00:24 PM CDT > 10/03/2024 Chronic obstructive pulmonary disease, unspecified COPD type (ICD-10 - J44.9) 07/27/2024 Myofascial low back pain (ICD-10 - M54.50) 07/04/2024 S/P coronary artery stent placement (ICD-10 - Z95.5) 06-02-24 lipitor doubled to 40mg. extensive edu on snf affects of uncontrolled dm. non compliant with ADA diet. pt to increase metformin to 1000 er bid, increase treseba to 24 units daily. fermentation operator discussed and strongly encouraged. pt fto avoid refined sugars and gluten. statin increased to 40mg daiy. bring medicaitons to update list 07/04/2024 Obesity (BMI 30-39.9) (ICD-10 - E66.9) Patient was counseled on obesity and the need for weight loss. She is encouraged to go on a ketogenic style diet. This diet was discussed with the patient and she seems very well Aware of the need to eliminate sugar from her diet and to eat more protein and healthy fats. She was given a handout on taking vitamin D3 3 supplement, coenzyme every 10 and omega-3 fats. 06/02/2024 Fusion of spine, lumbar region (ICD-10 - M43.26) 06-02-24 lipitor doubled to 40mg. 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 non compliant with ADA diet. pt to increase metformin to 1000 er bid, increase treseba to 24 units daily. fermentation operator discussed and strongly encouraged. pt fto avoid refined sugars and gluten. statin increased to 40mg daiy. bring medicaitons to update list 06/29/2024 Myofascial low back pain (ICD-10 - M54.50) This patient is counseled on the myofascial release technique for the lumbosacral region. This was demonstrated in the office and the patient seems to have grasped the idea of what to do. She is instructed on doing this on a daily basis to help relieve some of her pain. 05/03/2024 Fusion of spine, lumbar region (ICD-10 - M43.26) We will obtain follow-up x-ray of the lumbar spine in May. 05/25/2024 Degeneration of intervertebral disc of lumbosacral region with discogenic back pain and lower extremity pain (ICD-10 - M51.372) 04/27/2024 Other cervical disc degeneration, cervicothoracic region (ICD-10 - M50.33) 04/25/2024 S/P coronary artery stent placement (ICD-10 - Z95.5) 03/28/2024 S/P coronary artery stent placement (ICD-10 - Z95.5) 03/30/2024 Other cervical disc degeneration, cervicothoracic region (ICD-10 - M50.33) 02/24/2024 Other cervical disc degeneration, cervicothoracic region (ICD-10 - M50.33) 02/29/2024 Vitamin D deficiency (ICD-10 - E55.9) 02/29/2024 Chronic obstructive pulmonary disease, unspecified COPD type (ICD-10 - J44.9) 04/25/2024 Fusion of spine, lumbar region (ICD-10 - M43.26) We will obtain follow-up x-ray of the lumbar spine in May. 05/25/2024 BMI 33.0-33.9,adult (ICD-10 - Z68.33) MCT oil recomended. 1 Oz daily- split doses. 05/03/2024 Surgical menopause (ICD-10 - E89.40) 06/29/2024 Degeneration of intervertebral disc of lumbosacral region with discogenic back pain and lower extremity pain (ICD-10 - M51.372) 06/02/2024 [facility] (current) use of insulin (ICD-10 - Z79.4) 06-02-24 lipitor doubled to 40mg. extensive edu on snf affects of uncontrolled dm. non compliant with ADA diet. pt to increase metformin to 1000 er bid, increase treseba to 24 units daily. fermentation operator discussed and strongly encouraged. pt fto avoid refined sugars and gluten. statin increased to 40mg daiy. bring medicaitons to update list 07/04/2024 Overactive bladder (ICD-10 - N32.81) 07/04/2024 Fusion of spine, lumbar region (ICD-10 - M43.26) 06-02-24 lipitor doubled to 40mg. 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 non compliant with ADA diet. pt to increase metformin to 1000 er bid, increase treseba to 24 units daily. fermentation operator discussed and strongly encouraged. pt fto avoid refined sugars and gluten. statin increased to 40mg daiy. bring medicaitons to update list 07/27/2024 Degeneration of intervertebral disc of lumbosacral region with discogenic back pain and lower extremity pain (ICD-10 - M51.372) 09/21/2024 Degeneration of intervertebral disc of lumbosacral region with discogenic back pain and lower extremity pain (ICD-10 - M51.372) 10/03/2024 Peripheral vascular disease of lower extremity (ICD-10 - I73.9) 08/24/2024 Degeneration of intervertebral disc of lumbosacral region with discogenic back pain and lower extremity pain (ICD-10 - M51.372) 11/08/2024 COPD, moderate (ICD-10 - J44.9) 10/19/2024 Degeneration of intervertebral disc of lumbosacral region with discogenic back pain and lower extremity pain (ICD-10 - M51.372) 11/16/2024 Type 2 diabetes mellitus with diabetic polyneuropathy (ICD-10 - E11.42) 12/14/2024 BMI 33.0-33.9,adult (ICD-10 - Z68.33) 01/11/2025 BMI 33.0-33.9,adult (ICD-10 - Z68.33) 01/11/2025 Type 2 diabetes mellitus with diabetic polyneuropathy (ICD-10 - E11.42) 12/14/2024 Type 2 diabetes mellitus with diabetic polyneuropathy (ICD-10 - E11.42) 11/16/2024 Peripheral vascular disease of lower extremity (ICD-10 - I73.9) 10/19/2024 BMI 33.0-33.9,adult (ICD-10 - Z68.33) 09/21/2024 BMI 33.0-33.9,adult (ICD-10 - Z68.33) MCT oil recomended. 1 Oz daily- split doses. 10/03/2024 Obesity (BMI 30-39.9) (ICD-10 - E66.9) 07/27/2024 BMI 33.0-33.9,adult (ICD-10 - Z68.33) 08/24/2024 BMI 33.0-33.9,adult (ICD-10 - Z68.33) MCT oil recomended. 1 Oz daily- split doses. 07/04/2024 [facility] (current) use of insulin (ICD-10 - Z79.4) 06-02- lipitor doubled to 40mg. 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 non compliant with ADA diet. pt to increase metformin to 1000 er bid, increase treseba to 24 units daily. fermentation operator discussed and strongly encouraged. pt fto avoid refined sugars and gluten. statin increased to 40mg daiy. bring medicaitons to update list 06/29/2024 BMI 33.0-33.9,adult (ICD-10 - Z68.33) MCT oil recomended. 1 Oz daily- split doses. 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 T1-4 AND T5-9 12/14/2024 Peripheral vascular disease of lower extremity (ICD-10 - I73.9) 01/11/2025 Peripheral vascular disease of lower extremity (ICD-10 - I73.9) 01/11/2025 Segmental and somatic dysfunction of thoracic region (ICD-10 - M99.02) 12/14/2024 Segmental and somatic dysfunction of thoracic region (ICD-10 - M99.02) 10/19/2024 Peripheral vascular disease of lower extremity (ICD-10 - I73.9) 09/21/2024 Peripheral vascular disease of lower extremity (ICD-10 - I73.9) Patient is required to have a peripheral vascular disease exercise program established and maintained for 3 months before they would allow any intervention in her lower left extremity. Therefore, we will have the patient start a walking program. She is instructed on walking daily. She should walk to the point of near ischemia and discomfort and then stop. At that point she should turn and go back to her origination. She needs to try to progress her distance on a weekly basis. This process should be maintained daily for the next 3 months. Patient is encouraged, once again, to quit smoking. She is currently smoking half pack daily. 09/21/2024 Cigarette nicotine dependence with other nicotine-induced disorder (ICD-10 - F17.218) Patient counseled for 10 minutes on smoking cessation. We will initiate Chantix. 10/03/2024 Long-term insulin use (ICD-10 - Z79.4) 08/24/2024 Peripheral vascular disease of lower extremity (ICD-10 - I73.9) 05/03/2024 Dental caries (ICD-10 - K02.9) The patient is medically cleared for dental extractions tomorrow. 02/29/2024 Segmental and somatic dysfunction of thoracic region (ICD-10 - M99.02) OMT PERFORMED WITH SOFT TISSU AND HVLA TECHNIQUES, GOOD RESULTS. T1-4 AND T5-9 02/29/2024 Nicotine dependence, cigarettes, uncomplicated (ICD-10 - F17.210) 10/19/2024 Cigarette nicotine dependence with other nicotine-induced disorder (ICD-10 - F17.218) 10/03/2024 History of myocardial infarction (ICD-10 - I25.2) 10/19/2024 Segmental and somatic dysfunction of thoracic region (ICD-10 - M99.02) 10/03/2024 S/P coronary artery stent placement (ICD-10 - Z95.5) 09/21/2024 Segmental and somatic dysfunction of thoracic region (ICD-10 - M99.02) OMT PERFORMED WITH SOFT TISSU AND HVLA TECHNIQUES, GOOD RESULTS. T1-4 AND T5-9 10/03/2024 Atherosclerosis of [place] coronary artery of [place] heart with angina pectoris with documented spasm (ICD-10 - I25.111) 10/11/2024 Other old code 76807 new code 0241U 4 Targets - Covid-19 (SARS2), Influenza A & B, RSV and Upper Resp Specimen 02/24/2024 Other During the patient's visit today, we discussed their chronic pain, including the onset, duration, aggravating and relieving factors, nature of the pain, and their pain scale. We attempted to identify how the pain affected the patient's daily activities, mobility, mood, sleep, and relationships. We discussed both the long and short-term goals for pain management. We discussed the current medications including the dose, effectiveness, and potential side effects. Non-opioid therapies were considered, including NSAIDs and other adjuvant medications. We discussed the importance of exercise and recommended tailored exercises for the patient. We discussed physical therapy and potential referral to a physical therapist, if appropriate. We discussed the risks/benefits of alternative treatments such as acupuncture, child care leader, massage, and biofeedback. We discussed behavioral health and coping strategies. If applicable, we performed a PHQ-9 and CARO-7 with the patient. If the patient scored as having anxiety or depression, they were given education on the diagnosis. We discussed the importance of addressing any mental health concerns as mental health disorders are a common comorbidity of chronic pain. We discussed techniques to reduce stress and promote relaxation. If applicable, the patient was offered a referral to behavioral health. We discussed lifestyle modifications, including getting appropriate sleep, eating a healthy diet, and striving to control their weight. We discussed avoiding activities that exacerbate their pain. We discussed that we would reassess their pain scale and adjust their care plan as needed during future visits. During this visit 30 minutes were spent with the patient, during that time medication was reconciled, imaging and labs were reviewed, medication was eletronically sent to pharmacy, checked for medication interactions, discussed exercising and weight loss counseling, discussed plan for additional OTC pain control and home pt including meditation, yoga ect. PDMP inquired. 03/30/2024 Other During the patient's visit today, we discussed their chronic pain, including the onset, duration, aggravating and relieving factors, nature of the pain, and their pain scale. We attempted to identify how the pain affected the patient's daily activities, mobility, mood, sleep, and relationships. We discussed both the long and short-term goals for pain management. We discussed the current medications including the dose, effectiveness, and potential side effects. Non-opioid therapies were considered, including NSAIDs and other adjuvant medications. We discussed the importance of exercise and recommended tailored exercises for the patient. We discussed physical therapy and potential referral to a physical therapist, if appropriate. We discussed the risks/benefits of alternative treatments such as acupuncture, child care leader, massage, and biofeedback. We discussed behavioral health and coping strategies. If applicable, we performed a PHQ-9 and CARO-7 with the patient. If the patient scored as having anxiety or depression, they were given education on the diagnosis. We discussed the importance of addressing any mental health concerns as mental health disorders are a common comorbidity of chronic pain. We discussed techniques to reduce stress and promote relaxation. If applicable, the patient was offered a referral to behavioral health. We discussed lifestyle modifications, including getting appropriate sleep, eating a healthy diet, and striving to control their weight. We discussed avoiding activities that exacerbate their pain. We discussed that we would reassess their pain scale and adjust their care plan as needed during future visits. During this visit 30 minutes were spent with the patient, during that time medication was reconciled, imaging and labs were reviewed, medication was eletronically sent to pharmacy, checked for medication interactions, discussed exercising and weight loss counseling, discussed plan for additional OTC pain control and home pt including meditation, yoga ect. PDMP inquired. 04/27/2024 Other During the patient's visit today, we discussed their chronic pain, including the onset, duration, aggravating and relieving factors, nature of the pain, and their pain scale. We attempted to identify how the pain affected the patient's daily activities, mobility, mood, sleep, and relationships. We discussed both the long and short-term goals for pain management. We discussed the current medications including the dose, effectiveness, and potential side effects. Non-opioid therapies were considered, including NSAIDs and other adjuvant medications. We discussed the importance of exercise and recommended tailored exercises for the patient. We discussed physical therapy and potential referral to a physical therapist, if appropriate. We discussed the risks/benefits of alternative treatments such as acupuncture, child care leader, massage, and biofeedback. We discussed behavioral health and coping strategies. If applicable, we performed a PHQ-9 and CARO-7 with the patient. If the patient scored as having anxiety or depression, they were given education on the diagnosis. We discussed the importance of addressing any mental health concerns as mental health disorders are a common comorbidity of chronic pain. We discussed techniques to reduce stress and promote relaxation. If applicable, the patient was offered a referral to behavioral health. We discussed lifestyle modifications, including getting appropriate sleep, eating a healthy diet, and striving to control their weight. We discussed avoiding activities that exacerbate their pain. We discussed that we would reassess their pain scale and adjust their care plan as needed during future visits. During this visit 30 minutes were spent with the patient, during that time medication was reconciled, imaging and labs were reviewed, medication was eletronically sent to pharmacy, checked for medication interactions, discussed exercising and weight loss counseling, discussed plan for additional OTC pain control and home pt including meditation, yoga ect. PDMP inquired. During this visit 30 minutes were spent with the patient, during that time medication was reconciled, imaging and labs were reviewed, medication was eletronically sent to pharmacy, checked for medication interactions, discussed exercising and weight loss counseling, discussed plan for additional OTC pain control and home pt including meditation, yoga ect. PDMP inquired. 05/25/2024 Other During the patient's visit today, we discussed their chronic pain, including the onset, duration, aggravating and relieving factors, nature of the pain, and their pain scale. We attempted to identify how the pain affected the patient's daily activities, mobility, mood, sleep, and relationships. We discussed both the long and short-term goals for pain management. We discussed the current medications including the dose, effectiveness, and potential side effects. Non-opioid therapies were considered, including NSAIDs and other adjuvant medications. We discussed the importance of exercise and recommended tailored exercises for the patient. We discussed physical therapy and potential referral to a physical therapist, if appropriate. We discussed the risks/benefits of alternative treatments such as acupuncture, child care leader, massage, and biofeedback. We discussed behavioral health and coping strategies. If applicable, we performed a PHQ-9 and CARO-7 with the patient. If the patient scored as having anxiety or depression, they were given education on the diagnosis. We discussed the importance of addressing any mental health concerns as mental health disorders are a common comorbidity of chronic pain. We discussed techniques to reduce stress and promote relaxation. If applicable, the patient was offered a referral to behavioral health. We discussed lifestyle modifications, including getting appropriate sleep, eating a healthy diet, and striving to control their weight. We discussed avoiding activities that exacerbate their pain. We discussed that we would reassess their pain scale and adjust their care plan as needed during future visits. During this visit 30 minutes were spent with the patient, during that time medication was reconciled, imaging and labs were reviewed, medication was eletronically sent to pharmacy, checked for medication interactions, discussed exercising and weight loss counseling, discussed plan for additional OTC pain control and home pt including meditation, yoga ect. PDMP inquired. During this visit 30 minutes were spent with the patient, during that time medication was reconciled, imaging and labs were reviewed, medication was eletronically sent to pharmacy, checked for medication interactions, discussed exercising and weight loss counseling, discussed plan for additional OTC pain control and home pt including meditation, yoga ect. PDMP inquired. 06/29/2024 Other During the patient's visit today, we discussed their chronic pain, including the onset, duration, aggravating and relieving factors, nature of the pain, and their pain scale. We attempted to identify how the pain affected the patient's daily activities, mobility, mood, sleep, and relationships. We discussed both the long and short-term goals for pain management. We discussed the current medications including the dose, effectiveness, and potential side effects. Non-opioid therapies were considered, including NSAIDs and other adjuvant medications. We discussed the importance of exercise and recommended tailored exercises for the patient. We discussed physical therapy and potential referral to a physical therapist, if appropriate. We discussed the risks/benefits of alternative treatments such as acupuncture, child care leader, massage, and biofeedback. We discussed behavioral health and coping strategies. If applicable, we performed a PHQ-9 and CARO-7 with the patient. If the patient scored as having anxiety or depression, they were given education on the diagnosis. We discussed the importance of addressing any mental health concerns as mental health disorders are a common comorbidity of chronic pain. We discussed techniques to reduce stress and promote relaxation. If applicable, the patient was offered a referral to behavioral health. We discussed lifestyle modifications, including getting appropriate sleep, eating a healthy diet, and striving to control their weight. We discussed avoiding activities that exacerbate their pain. We discussed that we would reassess their pain scale and adjust their care plan as needed during future visits. During this visit 30 minutes were spent with the patient, during that time medication was reconciled, imaging and labs were reviewed, medication was eletronically sent to pharmacy, checked for medication interactions, discussed exercising and weight loss counseling, discussed plan for additional OTC pain control and home pt including meditation, yoga ect. PDMP inquired. During this visit 30 minutes were spent with the patient, during that time medication was reconciled, imaging and labs were reviewed, medication was eletronically sent to pharmacy, checked for medication interactions, discussed exercising and weight loss counseling, discussed plan for additional OTC pain control and home pt including meditation, yoga ect. PDMP inquired. During this visit 30 minutes were spent with the patient, during that time medication was reconciled, imaging and labs were reviewed, medication was eletronically sent to pharmacy, checked for medication interactions, discussed exercising and weight loss counseling, discussed plan for additional OTC pain control and home pt including meditation, yoga ect. PDMP inquired. During this visit 30 minutes were spent with the patient, during that time medication was reconciled, imaging and labs were reviewed, medication was eletronically sent to pharmacy, checked for medication interactions, discussed exercising and weight loss counseling, discussed plan for additional OTC pain control and home pt including meditation, yoga ect. PDMP inquired. 07/04/2024 Other Discuss with patient/family about medication side effect(s) and drug interaction(s). Patient/family agreed and verbalized understanding of Care plan. 08/24/2024 Other During the patient's visit today, we discussed their chronic pain, including the onset, duration, aggravating and relieving factors, nature of the pain, and their pain scale. We attempted to identify how the pain affected the patient's daily activities, mobility, mood, sleep, and relationships. We discussed both the long and short-term goals for pain management. We discussed the current medications including the dose, effectiveness, and potential side effects. Non-opioid therapies were considered, including NSAIDs and other adjuvant medications. We discussed the importance of exercise and recommended tailored exercises for the patient. We discussed physical therapy and potential referral to a physical therapist, if appropriate. We discussed the risks/benefits of alternative treatments such as acupuncture, child care leader, massage, and biofeedback. We discussed behavioral health and coping strategies. If applicable, we performed a PHQ-9 and CARO-7 with the patient. If the patient scored as having anxiety or depression, they were given education on the diagnosis. We discussed the importance of addressing any mental health concerns as mental health disorders are a common comorbidity of chronic pain. We discussed techniques to reduce stress and promote relaxation. If applicable, the patient was offered a referral to behavioral health. We discussed lifestyle modifications, including getting appropriate sleep, eating a healthy diet, and striving to control their weight. We discussed avoiding activities that exacerbate their pain. We discussed that we would reassess their pain scale and adjust their care plan as needed during future visits. During this visit 30 minutes were spent with the patient, during that time medication was reconciled, imaging and labs were reviewed, medication was eletronically sent to pharmacy, checked for medication interactions, discussed exercising and weight loss counseling, discussed plan for additional OTC pain control and home pt including meditation, yoga ect. PDMP inquired. 09/21/2024 Other During the patient's visit today, we discussed their chronic pain, including the onset, duration, aggravating and relieving factors, nature of the pain, and their pain scale. We attempted to identify how the pain affected the patient's daily activities, mobility, mood, sleep, and relationships. We discussed both the long and short-term goals for pain management. We discussed the current medications including the dose, effectiveness, and potential side effects. Non-opioid therapies were considered, including NSAIDs and other adjuvant medications. We discussed the importance of exercise and recommended tailored exercises for the patient. We discussed physical therapy and potential referral to a physical therapist, if appropriate. We discussed the risks/benefits of alternative treatments such as acupuncture, child care leader, massage, and biofeedback. We discussed behavioral health and coping strategies. If applicable, we performed a PHQ-9 and CARO-7 with the patient. If the patient scored as having anxiety or depression, they were given education on the diagnosis. We discussed the importance of addressing any mental health concerns as mental health disorders are a common comorbidity of chronic pain. We discussed techniques to reduce stress and promote relaxation. If applicable, the patient was offered a referral to behavioral health. We discussed lifestyle modifications, including getting appropriate sleep, eating a healthy diet, and striving to control their weight. We discussed avoiding activities that exacerbate their pain. We discussed that we would reassess their pain scale and adjust their care plan as needed during future visits. During this visit 30 minutes were spent with the patient, during that time medication was reconciled, imaging and labs were reviewed, medication was eletronically sent to pharmacy, checked for medication interactions, discussed exercising and weight loss counseling, discussed plan for additional OTC pain control and home pt including meditation, yoga ect. PDMP inquired. 10/11/2024 Other Respiratory PCR, 1GRAM Rocephin injection José Antonio Esquivel 10/11/2024 10:06:13 AM CDT > 10/19/2024 Other During this visit 30 minutes were spent with the patient, during that time medication was reconciled, imaging and labs were reviewed, medication was eletronically sent to pharmacy, checked for medication interactions, discussed exercising and weight loss counseling, discussed plan for additional OTC pain control and home pt including meditation, yoga ect. PDMP inquired. 11/16/2024 Other During the patient's visit today, we discussed their chronic pain, including the onset, duration, aggravating and relieving factors, nature of the pain, and their pain scale. We attempted to identify how the pain affected the patient's daily activities, mobility, mood, sleep, and relationships. We discussed both the long and short-term goals for pain management. We discussed the current medications including the dose, effectiveness, and potential side effects. Non-opioid therapies were considered, including NSAIDs and other adjuvant medications. We discussed the importance of exercise and recommended tailored exercises for the patient. We discussed physical therapy and potential referral to a physical therapist, if appropriate. We discussed the risks/benefits of alternative treatments such as acupuncture, child care leader, massage, and biofeedback. We discussed behavioral health and coping strategies. If applicable, we performed a PHQ-9 and CARO-7 with the patient. If the patient scored as having anxiety or depression, they were given education on the diagnosis. We discussed the importance of addressing any mental health concerns as mental health disorders are a common comorbidity of chronic pain. We discussed techniques to reduce stress and promote relaxation. If applicable, the patient was offered a referral to behavioral health. We discussed lifestyle modifications, including getting appropriate sleep, eating a healthy diet, and striving to control their weight. We discussed avoiding activities that exacerbate their pain. We discussed that we would reassess their pain scale and adjust their care plan as needed during future visits. Plan Of Treatment Pending Test Test Name Order Date Comp. Metabolic Panel (14) 11/30/2023 Urine Drug Screen 04/27/2024 Urine Drug Screen 06/29/2024 CBC 11/30/2023 .HEMOGLOBIN A1c (496) 11/30/2023 LIPASE (606) 11/30/2023 AMYLASE (243) 11/30/2023 DRUG MONITORING, PANEL 7 WITH CONFIRMATI ON, URINE (28097) 04/27/2024 DRUG MONITORING, PANEL 7 WITH CONFIRMATI ON, URINE (06204) 06/29/2024 *COVID 66767 10/11/2024 *FLU A & B 11577 10/11/2024 HEMOGLOBIN A1c % 10/03/2024 Future Test Test Name Order Date *X-RAY CHEST PA & LATERAL 2 VIEWS 51938 10/03/2024 *Electrocardiogram (EKG) 10/03/2024 PULMONARY FUNCTION TEST 10/03/2024 Next Appt Details Provider Name:José Antonio Alcantar son, 02/08/2025 01:30:00 PM, [address] [place], [address], Insurance Providers Payer Name Payer Address Payer Phone Subscriber Number Group Number Insured Name Patient Relationship to Insured Coverage Start Date Coverage End Date [facility] Complete [address] [place] [address] [id number] LORIN [place] Self - patient is the insured [employer] [place] [address] [place], [place] [id number] LORIN DANG Self - patient is the insured Medications Administered Medication Instructions Date of Administration Dosage Notes Ceftriaxone(Rocephin) 1000 mg 10/11/2024 1000 m g Medical (General) History Medical History History ICD Code hypertension cholesterol diabetes Surgical History Surgery Date(Month/Year) heart stent tubal ablasion spinal fusion 2022 x2
== END 2025-01-24 09:56 | disposition home or self-care (01) ==
PROVIDERS: Emergency Provider Emergency Medicine; PCP Nurse Practitioner Family
DX: R07.9 Chest pain, unspecified (principal); Z79.82 Long term (current) use of aspirin; Z79.02 Long term (current) use of antithrombotics/antiplatelets; Z79.84 Long term (current) use of oral hypoglycemic drugs; Z72.0 Tobacco use; I25.10 Atherosclerotic heart disease of native coronary artery without angina pectoris
CPT/HCPCS: 36415; 71045; 80053; 83690; 84484; 85025; 93005; 96374; 96375; 99285; J2270; J2405; J9999

== ENCOUNTER → 2025-02-01 14:23 | Outpatient (BNVA) | payer OTHER, MEDICAID, SELFPAY | PROVIDERS: PCP Nurse Practitioner Family; Visit Provider Nurse Practitioner Women's Health | DX: Z01.419 Encounter for gynecological examination (general) (routine) without abnormal findings (principal) | CPT/HCPCS: 87624 ==

== ENCOUNTER 2025-02-10 09:59 | Outpatient (CLI) | payer OTHER, MEDICAID, SELFPAY ==
--- NOTE | 2025-02-10 10:00 | MM_ITS ---
WS: [id number] BILATERAL SCREENING DIGITAL TOMOSYNTHESIS MAMMOGRAM WITH CAD HISTORY: Z12.39 - Encounter for other screening for malignant neop... COMPARISON: 11/01/2020, 07/28/2018 Bilateral CC and MLO views with tomosynthesis and synthetic mammography submitted. Computer aided detection analyzed. Breast composition: The breasts are almost entirely fatty. No suspicious masses, microcalcifications or architectural distortion. MM/MM scr BI tomosynthesis [id number] IMPRESSION: BI-RADS: 1 - Negative. FOLLOW UP: 1 Year Follow-up
== END 2025-02-10 10:00 | disposition home or self-care (01) ==
LOC: RAD 10:01
PROVIDERS: Absent Provider Electrodiagnostic Medicine; PCP Nurse Practitioner Family; Visit Provider Nurse Practitioner Women's Health
DX: Z12.31 Encounter for screening mammogram for malignant neoplasm of breast (principal); R92.1 Mammographic calcification found on diagnostic imaging of breast; R92.313 Mammographic fatty tissue density, bilateral breasts
CPT/HCPCS: 77063; 77067

== ENCOUNTER 2025-03-17 17:03 | Emergency (ER) | payer OTHER, MEDICAID, SELFPAY ==
--- OUTSIDE RECORDS SUMMARY | 2025-02-08 18:30 | XMS_ITS ---
Author Organization [facility] Address [address] [place] [address] Care Team Providers Care Cloth Finisher Name Role Phone EsquivelWiliJosé Antonio Primary Care Provider [phone] Results Component Value Reference Range Flag Notes Presumptive Drug Test - Spec imen Type Urine Reviewed date:02/14/2025 12:12:26 PM Interpretation: Performing Lab: Notes/Report: Opiates Screen Positive 150 ng/mL ng/ml H Benzodiazepines Screen Negative 150 ng/mL ng/ml Amphetamines Screen Negative 600 ng/mL ng/ml Cocaine Screen Negative 150 ng/mL ng/ml Methadone Screen Negative 150 ng/mL ng/ml 6-CECILIA Screen Negative 60 ng/mL ng/ml Methamphetamine Screen Negative 600 ng/mL ng/ml Fentanyl Screen Negative 9 ng/mL ng/ml Tricyclic Antidepressants Screen Negative 150 ng/mL ng/m l Buprenorphine Screen Negative 75 ng/mL ng/ml Cannabis Screen Positive 150 ng/mL ng/ml H Full Confirmation - Specimen Type Urine Reviewed date:02/14/2025 12:12:42 PM Interpretation: Performing Lab: Notes/Report: 6-CECILIA Negative [...] Hydrocodone >500 50 ng/mL ng/mL H Hydromorphone >500 50 ng/mL ng/mL H Lorazepam Negative 50 [...] ng/mL Tramadol Negative 50 ng/mL ng/mL THC 172 50 ng/mL ng/mL H Amitriptyline Negative 50 [...] ng/mL Mitragynine Negative 50 ng/mL ng/mL Norhydrocodone >500 50 ng/mL ng/mL H Norketamine Negative 50 ng/mL ng/mL Normeperidine Negative 50 ng/mL ng/mL Noroxycodone Negative 50 ng/mL ng/mL PCP Negative 25 ng/mL ng/mL Phentermine Negative 50 ng/mL ng/mL Zaleplon Negative 20 ng/mL ng/mL Trazodone Negative 50 ng/mL ng/mL REASON FOR VISIT uds Medications Medication SIG (Take, Route, Frequency, Duration) Notes Start Date End Date Status Levocetirizine Dihydrochloride 5 MG Tablet 1 tablet in the evening Orally Once a day; Duration: 30 days Active Celecoxib 200 mg Capsule 1 capsule orall y twice a day; Duration: 30 days Increasing to BID José Antonio Esquivel 12/07/2024 10:26:09 AM CDT > Active Aspirin Low Dose 81 MG Tablet Delayed Release 1 tablet Orally Once a day; Duration: 90 days Active HYDROcodone-Acetaminophen 10-325 MG Tablet 1 tablet as needed for pain Orally three times a day; Duration: 28 days 01/11/2025 Active Pregabalin 200 MG Capsule 1 capsule orally three times daily; Duration: 28 days As needed 01/11/2025 Active hydroCHLOROthiazide 12.5 mg Tablet 1 tablet Orally daily; Duration: 30 days Active rOPINIRole HCl 2 mg Tablet 1 tablet Orally daily; Duration: 30 days At bedtime Active Isosorbide Mononitrate ER 30 mg Tablet Extended Release 24 Hour 1 tablet Orally daily; Duration: 30 days Active Clopidogrel Bisulfate 75 mg Tablet 1 tablet Orally Once daily; Duration: 30 days Active Lisinopril 20 mg Tablet 1 tablet Orally daily; Duration: 30 days Active amLODIPine Besylate 10 mg Tablet 1 tablet Orally daily; Duration: 30 days Active Terbinafine HCl 250 MG Tablet 1 tablet Orally Once a day; Duration: 30 days Active Dexcom G7 Wildlife Enforcement Major - Device as directed; Duration: 90 days 12/11/2023 Active Ozempic (0.25 or 0.5 MG/DOSE) 2 MG/3ML Solution Pen-injector INJECT 0.25mg SUBCUTANEOUSLY EVERY WEEK *THANK YOU AND ESTELLA GARCIA BLESS YOU*; Duration: 30 Active Atorvastatin Calcium 20 MG Tablet 1 tablet Orally Once a day; Duration: 90 days Active metFORMIN HCl ER 500 mg Tablet Extended Release 24 Hour TAKE 2 TABLETS BY MOUTH TWICE A DAY *THANK YOU AND ESTELLA GARCIA BLESS YOU*; Duration: 30 Active Farxiga 10 MG Tablet 1 tablet Orally Once a day; Duration: 30 days Active Tresiba FlexTouch 200 UNIT/ML Solution Pen-injector 24 UNITS Subcutaneous daily; Duration: 90 days Active Magnesium 30 MG Tablet 1 tablet with a meal Orally Once a day; Duration: 30 days Every evening 07/27/2024 Active Folic Acid 1 MG Tablet 1 tablet Orally Once a day; Duration: 30 days 07/27/2024 Active Vitamin D (Ergocalciferol) 1.25 MG (33519 UT) Capsule 1 capsule Orally weekly; Duration: 30 days Active Symbicort 160-4.5 MCG/ACT Aerosol 2 puffs Inhalation twice a day; Duration: 30 days Active Dexcom G7 Sensor - Miscellaneous as directed every 10 days; Duration: 90 days 12/11/2023 Active Cilostazol 100 MG Tablet TAKE 1 TABLET B Y MOUTH TWICE A DAY THANK YOU AND ESTELLA GARCIA BLESS YOU Oral; Duration: 30 Days Active Encounters Encounter Location Date Provider Diagnosis [facility] [address] [place] [address] 02/08/2025 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 Z79.891 and USP use of drug Z79.899 Assessments Encounter Date Diagnosis (ICD Code) Assessment Notes Treatment Notes Treatment Clinical Notes Section Notes 02/08/2025 USP (current) use of opiate analgesic (ICD-10 - Z79.891) 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 This confirmation will provide precise identification and quantification of specific drugs and their metabolites, enabling accurate assessment of the patient's compliance. Detecting possible diversion is crucial for preventing misuse, adjusting the treatment regimen as needed, and ensuring optimal patient outcomes. The confirmatory test will guide appropriate clinical interventions and support the responsible management of controlled medications.See attached results with included risk stratification and medical nessessity statement. Progress Notes * TAN DANGADOB:1975 ([age] yo F)Acc No.[id number]:02/08/2025 Patient: LORIN DUNBAR Provider: Immanuel Esquivel DO :1975 A ge:49 Y S ex:Female Date:02/08/2025 Address:[address] [place], [place] [id number] Subjective: * Chief Complaints: * U ds * HPI: H PI: Presumptive UDS ordered to ensure the safety and efficacy of the patient's treatment plan, if the presumptive is inconsistent the test will reflex to a confirmation. This confirmation will provide precise identification and quantification of specific drugs and their metabolites, enabling accurate assessment of the patient's compliance. Detecting possible diversion is crucial for preventing misuse, adjusting the treatment regimen as needed, and ensuring optimal patient outcomes. The confirmatory test will guide appropriate clinical interventions and support the responsible management of controlled medications.See attached results with included risk stratification and medical nessessity statement. * Medications: T akingCilostazol 100 MG Tablet TAKE 1 TABLET BY MOUTH TWICE A DAY THANK YOU AND MAY GOD BLESS YOU Oral Dexcom G7 Sensor - Miscellaneous as directed every 10 days Symbicort 160-4.5 MCG/ACT Aerosol 2 puffs Inhalation twice a day Vitamin D (Ergocalciferol) 1.25 MG (70505 UT) Capsule 1 capsule Orally weekly Folic Acid 1 MG Tablet 1 tablet Orally Once a day Magnesium 30 MG Tablet 1 tablet with a meal Orally Once a day Every eveningTresiba FlexTouch 200 UNIT/ML Solution Pen-injector 24 UNITS Subcutaneous daily metFORMIN HCl ER 500 mg Tablet Extended Release 24 Hour TAKE 2 TABLETS BY MOUTH TWICE A DAY *THANK YOU AND MAY GOD BLESS YOU* Atorvastatin Calcium 20 MG Tablet 1 tablet Orally Once a day Ozempic (0.25 or 0.5 MG/DOSE) 2 MG/3ML Solution Pen-injector INJECT 0.25mg SUBCUTANEOUSLY EVERY WEEK *THANK YOU AND MAY RADHA BLESS YOU* Dexcom G7 Wildlife Enforcement Major - Device as directed Farxiga 10 MG Tablet 1 tablet Orally Once a day Terbinafine HCl 250 MG Tablet 1 tablet Orally Once a day amLODIPine Besylate 10 mg Tablet 1 tablet Orally daily Lisinopril 20 mg Tablet 1 tablet Orally daily Clopidogrel Bisulfate 75 mg Tablet 1 tablet Orally Once daily Isosorbide Mononitrate ER 30 mg Tablet Extended Release 24 Hour 1 tablet Orally daily rOPINIRole HCl 2 mg Tablet 1 tablet Orally daily At bedtimehydroCHLOROthiazide 12.5 mg Tablet 1 tablet Orally daily Pregabalin 200 MG Capsule 1 capsule orally three times daily As neededHYDROcodone-Acetaminophen 10-325 MG Tablet 1 tablet as needed for pain Orally three times a day Aspirin Low Dose 81 MG Tablet Delayed Release 1 tablet Orally Once a day Celecoxib 200 mg Capsule 1 capsule orally twice a day , Notes to Pharmacist: Increasing to José Antonio Ordoñez 12/07/2024 10:26:09 AM CDT >Levocetirizine Dihydrochloride 5 MG Tablet 1 tablet in the evening Orally Once a day Taking Cilostazol 100 MG Tablet TAKE 1 TABLET BY MOUTH TWICE A DAY THANK YOU AND ESTELLA GARCIA BLESS YOU Oral Taking Dexcom G7 Sensor - Miscellaneous as directed every 10 days Taking Symbicort 160-4.5 MCG/ACT Aerosol 2 puffs Inhalation twice a day Taking Vitamin D (Ergocalciferol) 1.25 MG (11823 UT) Capsule 1 capsule Orally weekly Taking Folic Acid 1 MG Tablet 1 tablet Orally Once a day Taking Magnesium 30 MG Tablet 1 tablet with a meal Orally Once a day Every eveningTaking Tresiba FlexTouch 200 UNIT/ML Solution Pen-injector 24 UNITS Subcutaneous daily Taking metFORMIN HCl ER 500 mg Tablet Extended Release 24 Hour TAKE 2 TABLETS BY MOUTH TWICE A DAY *THANK YOU AND ESTELLA GARCIA BLESS YOU* Taking Atorvastatin Calcium 20 MG Tablet 1 tablet Orally Once a day Taking Ozempic (0.25 or 0.5 MG/DOSE) 2 MG/3ML Solution Pen-injector INJECT 0.25mg SUBCUTANEOUSLY EVERY WEEK *THANK YOU AND ESTELLA GARCIA BLESS YOU* Taking Dexcom G7 Wildlife Enforcement Major - Device as directed Taking Farxiga 10 MG Tablet 1 tablet Orally Once a day Taking Terbinafine HCl 250 MG Tablet 1 tablet Orally Once a day Taking amLODIPine Besylate 10 mg Tablet 1 tablet Orally daily Taking Lisinopril 20 mg Tablet 1 tablet Orally daily Taking Clopidogrel Bisulfate 75 mg Tablet 1 tablet Orally Once daily Taking Isosorbide Mononitrate ER 30 mg Tablet Extended Release 24 Hour 1 tablet Orally daily Taking rOPINIRole HCl 2 mg Tablet 1 tablet Orally daily At bedtimeTaking hydroCHLOROthiazide 12.5 mg Tablet 1 tablet Orally daily Taking Pregabalin 200 MG Capsule 1 capsule orally three times daily As neededTaking HYDROcodone- Acetaminophen 10-325 MG Tablet 1 tablet as needed for pain Orally three times a day Taking Aspirin Low Dose 81 MG Tablet Delayed Release 1 tablet Orally Once a day Taking Celecoxib 200 mg Capsule 1 capsule orally twice a day , Notes to Pharmacist: Increasing to José Antonio Ordoñez 12/07/2024 10:26:09 AM CDT >Taking Levocetirizine Dihydrochloride 5 MG Tablet 1 tablet in the evening Orally Once a day DiscontinuedVarenicline Tartrate 0.5 MG Tablet 1 tablet after eating Orally Twice a day Benzonatate 200 MG Capsule 1 capsule as needed Orally Three times a day Azithromycin 1 GM Packet 1 packet Orally Once a day 2 tablets on day 1, 1 tablet day 2-5Discontinued Varenicline Tartrate 0.5 MG Tablet 1 tablet after eating Orally Twice a day Discontinued Benzonatate 200 MG Capsule 1 capsule as needed Orally Three times a day Discontinued Azithromycin 1 GM Packet 1 packet Orally Once a day 2 tablets on day 1, 1 tablet day 2-5 Assessment: * Assessment: 1. L foreign term (current) use of opiate analgesic - Z79.891 (Primary) 2 . L foreign term use of drug - Z79.899 Plan: * Treatment: Value Reference Range 6 -CECILIA Negative 20 ng/mL - ng/mL * 7 -Aminoclonazepam Negative 50 ng/mL - ng/mL * a -Hydroxyalprazolam Negative 50 ng/mL - ng/mL * A lprazolam Negative 50 ng/mL - ng/mL * A mitriptyline Negative 50 ng/mL - ng/mL * A mphetamine Negative 50 ng/mL - ng/mL * B enzoylecgonine Negative 50 ng/mL - ng/mL * B uprenorphine Negative 25 ng/mL - ng/mL * C arboxyzolpidem Negative 100 ng/mL - ng/mL * C arisoprodol Negative 50 ng/mL - ng/mL * C lonazepam Negative 50 ng/mL - ng/mL * C odeine Negative 50 ng/mL - ng/mL * C yclobenzaprine Negative 50 ng/mL - ng/mL * D esalkylflurazepam Negative 50 ng/mL - ng/mL * D esmethyldoxepin Negative 50 ng/mL - ng/mL * D iazepam Negative 50 ng/mL - ng/mL * D oxepin Negative 50 ng/mL - ng/mL * E DDP Negative 50 ng/mL - ng/mL * F entanyl Negative 3 ng/mL - ng/mL * F lunitrazepam Negative 50 ng/mL - ng/mL * F lurazepam Negative 50 ng/mL - ng/mL * G abapentin Negative 500 ng/mL - ng/mL * H ydrocodone >500 H 50 ng/mL - ng/mL * H ydromorphone >500 H 50 ng/mL - ng/mL * I mipramine Negative 50 ng/mL - ng/mL * K etamine Negative 50 ng/mL - ng/mL * L orazepam Negative 50 ng/mL - ng/mL * M DMA Negative 50 ng/mL - ng/mL * M eperidine Negative 50 ng/mL - ng/mL * M eprobamate Negative 50 ng/mL - ng/mL * M ethadone Negative 50 ng/mL - ng/mL * M ethamphetamine Negative 200 ng/mL - ng/mL * M ethylphenidate Negative 50 ng/mL - ng/mL * M itragynine Negative 50 ng/mL - ng/mL * M orphine Negative 50 ng/mL - ng/mL * N aloxone Negative 50 ng/mL - ng/mL * N altrexone Negative 50 ng/mL - ng/mL * N orbuprenorphine Negative 25 ng/mL - ng/mL * N ordiazepam Negative 50 ng/mL - ng/mL * N orfentanyl Negative 10 ng/mL - ng/mL * N orhydrocodone >500 H 50 ng/mL - ng/mL * N orketamine Negative 50 ng/mL - ng/mL * N ormeperidine Negative 50 ng/mL - ng/mL * N oroxycodone Negative 50 ng/mL - ng/mL * N orpropoxyphene Negative 50 ng/mL - ng/mL * N ortriptyline Negative 50 ng/mL - ng/mL * o -Desmethyltramadol Negative 50 ng/mL - ng/mL * O xazepam Negative 50 ng/mL - ng/mL * O xycodone Negative 50 ng/mL - ng/mL * O xymorphone Negative 50 ng/mL - ng/mL * P CP Negative 25 ng/mL - ng/mL * P hentermine Negative 50 ng/mL - ng/mL * P regabalin >2000 H 200 ng/mL - ng/mL * P ropoxyphene Negative 50 ng/mL - ng/mL * R italinic Acid Negative 50 ng/mL - ng/mL * T apentadol Negative 50 ng/mL - ng/mL * T emazepam Negative 50 ng/mL - ng/mL * T HC 172 H 50 ng/mL - ng/mL * T ramadol Negative 50 ng/mL - ng/mL * T razodone Negative 50 ng/mL - ng/mL * Z aleplon Negative 20 ng/mL - ng/mL ?LAB: Presumptive Drug Test - Specimen Type Urine (Collection Date & Time - 02/08/2025 01:55 PM)* Value Reference Range A mphetamines Screen Negative 600 ng/mL - ng/ml * B enzodiazepines Screen Negative 150 ng/mL - ng/ml * C ocaine Screen Negative 150 ng/mL - ng/ml * M ethamphetamine Screen Negative 600 ng/mL - ng/ml * M ethadone Screen Negative 150 ng/mL - ng/ml * O piates Screen Positive H 150 ng/mL - ng/ml * T ricyclic Antidepressants Screen Negative 150 ng/m L - ng/ml * C annabis Screen Positive H 150 ng/mL - ng/ml * 6 -CECILIA Screen Negative 60 ng/mL - ng/ml * F entanyl Screen Negative 9 ng/mL - ng/ml * B uprenorphine Screen Negative 75 ng/mL - ng/ml * Procedure Codes: 8 0307 DRUG TEST PRSMV CHEM [id number] Drug test def 1-7 classes Billing Information: * Procedure Codes: 31649 DRUG TEST PRSMV CHEM ANLYZR. G0480 Drug test def 1-7 classes. * Electronic signature of Parish Esquivel DO on 03/17/2025 at 05:07 PM CDT Sign off status: Pending * Provider: Immanuel Esquivel DO Date: 0 02/08/2025 Generated for Aashish nazario/Cynthia/Blayne on: 1 05:07 PM CDT
--- OUTSIDE RECORDS SUMMARY | 2025-03-07 19:30 | XMS_ITS ---
Author Organization [facility] Address [address] [place], [place] [address] Care Team Providers Care Service Support Representative Name Role Phone José Antonio Esquivel Primary Care Provider Results Component Value Reference Range Flag Notes .COMPREHENSIVE METABOLIC CORTEZ (05256) [facility] Reviewed date:03/13/2025 02:48:59 PM Interpretation: Performing Lab:[place], [facility]-[id number] Chris Perdue, [id number] Miguel Mota MD Notes/Report: NON-FASTING NON-FASTING NON-FASTING NON-FASTING NON-FASTING NON-FASTING GLUCOSE 215 65-99 mg/dL H Fasting reference interval For someone without known diabetes, a glucose value >125 mg/dL indicates that they may have diabetes and this should be confirmed with a follow-up test. UREA NITROGEN (BUN) 26 7-25 mg/dL H CREATININE 1.03 0.50-0.99 mg/dL H EGFR 67 > OR = 60 mL/min/1.73m2 N BUN/CREATININE RATIO 25 6-22 (calc) H SODIUM 134 135-146 mmol/L L POTASSIUM 4.9 3.5-5.3 mmol/L N CHLORIDE 99 98-110 mmol/L N CARBON DIOXIDE 27 20-32 mmol/L N CALCIUM 9.5 8.6-10.2 mg/dL N PROTEIN, TOTAL 6.5 6.1-8.1 g/dL N ALBUMIN 4.1 3.6-5.1 g/dL N GLOBULIN 2.4 1.9-3.7 g/dL (calc) N ALBUMIN/GLOBULIN RATIO 1.7 1.0-2.5 (calc) N BILIRUBIN, TOTAL 0.5 0.2-1.2 mg/dL N ALKALINE PHOSPHATASE 104 31-125 U/L N AST 13 10-35 U/L N ALT 19 6-29 U/L N TESTOSTERONE, FREE, BIOAVAIL ABLE AND TOTAL, MS (90772) Reviewed date:03/13/2025 08:31:31 AM Interpretation: Performing Lab:[facility] [address], [address], VdgldpysngDY[address] Darcy Yeager MD,PhD Notes/Report: NON-FASTING NON-FASTING NON-FASTING NON-FASTING NON-FASTING NON-FASTING ALBUMIN 4.2 3.6-5.1 g/dL SEX HORMONE BINDING GLOBULIN 47 17-124 nmol/L TESTOSTERONE, FREE 1.6 0.2-5.0 pg/mL TESTOSTERONE,BIOAVAILA BLE 3.1 0.5-8.5 ng/dL TESTOSTERONE, TOTAL, MS 18 2-45 ng/dL For additional information, please refer to https://education.SmartHabitat/faq/FAQ16 5 (This link is being provided for informational/educationa l purposes only.) (Note) This test was developed and its analytical performance characteristics have been determined by [employer]. It has not been cleared or approved by the FDA. This assay has been validated pursuant to the CLIA regulations and is used for clinical purposes. [facility] med fusion [address] [address],[address] [facility] [id number] Darcy Yeager MD, PhD .CBC (INCLUDES DIFF/PLT) (63 99) Reviewed date:03/09/2025 08:50:59 AM Interpretation: Performing Lab:FRANCIS, [employer]-[id number] Chris Knutson, [id number] Miguel Mota MD Notes/Report: NON-FASTING NON-FASTING NON-FASTING NON-FASTING NON-FASTING NON-FASTING WHITE BLOOD CELL COUNT 8.6 3.8-10.8 Thousand/uL N RED BLOOD CELL COUNT 4.92 3.80-5.10 Million/uL N HEMOGLOBIN 15.3 11.7-15.5 g/dL N HEMATOCRIT 47.2 35.0-45.0 % H MCV 95.9 80.0-100.0 fL N MCH 31.1 27.0-33.0 pg N MCHC 32.4 32.0-36.0 g/dL N For adults, a slight decrease in the calculated MCHC value (in the range of 30 to 32 g/dL) is most likely not clinically significant; however, it should be interpreted with caution in correlation with other red cell parameters and the patient's clinical condition. RDW 13.4 11.0-15.0 % N PLATELET COUNT 285 140-400 Thousand/uL N MPV 9.9 7.5-12.5 fL N ABSOLUTE NEUTROPHILS 5186 5666-7966 cells/uL N ABSOLUTE LYMPHOCYTES 2726 850-3900 cells/uL N ABSOLUTE MONOCYTES 516 200-950 cells/uL N ABSOLUTE EOSINOPHILS 120 15-500 cells/uL N ABSOLUTE BASOPHILS 52 0-200 cells/uL N NEUTROPHILS 60.3 N LYMPHOCYTES 31.7 N MONOCYTES 6.0 N EOSINOPHILS 1.4 N BASOPHILS 0.6 N THYROID PEROXIDASE ANTIBODIE S (5081) Reviewed date:03/13/2025 08:31:36 AM Interpretation: Performing Lab:LEONARDO, [employer]-[place] Petv3551 Marvin Knutson, [facility] CenterHgthCD[address] Tay Abebe Notes/Report: NON-FASTING NON-FASTING NON-FASTING NON-FASTING NON-FASTING NON-FASTING THYROID PEROXIDASE ANTIBODIES 1 <9 IU/mL VITAMIN B12/FOLATE, SERUM PA RALPH (7065) Reviewed date:03/10/2025 08:36:46 AM Interpretation: Performing Lab:FRANCIS [facility]-[id number] Chris Knutson, IvmfdvCZ[address] Miguel Mota MD Notes/Report: NON-FASTING NON-FASTING NON-FASTING NON-FASTING NON-FASTING NON-FASTING VITAMIN B12 450 247-8335 pg/mL N Please Note: Although the reference range for vitamin B12 is 200-1100 pg/mL, it has been reported that between 5 and 10% of patients with values between 200 and 400 pg/mL may experience neuropsychiatric and hematologic abnormalities due to occult B12 deficiency; less than 1% of patients with values above 400 pg/mL will have symptoms. FOLATE, SERUM >24.0 N Reference Range Low: <3.4 Borderline: 3.4-5.4 Normal: >5.4 (615) Reviewed date:03/10/2025 08:36:56 AM Interpretation: Performing Lab:Mara BLANCO-[id number] Matos[address] Miguel Mota MD Notes/Report: NON-FASTING NON-FASTING NON-FASTING NON-FASTING NON-FASTING NON-FASTING LH 7.9 N Reference Range Follicular Phase 1.9-12.5 Mid-Cycle Peak 8.7-76.3 Luteal Phase 0.5-16.9 Postmenopausal 10.0-54.7 PROLACTIN (746) Reviewed date:03/10/2025 08:36:53 AM Interpretation: Performing Lab:Mara BALNCO LenexaKS[address] Miguel Mota MD Notes/Report: NON-FASTING NON-FASTING NON-FASTING NON-FASTING NON-FASTING NON-FASTING PROLACTIN 8.5 N Reference Range Females Non- 3.0-30.0 10.0-209.0 Postmenopausal 2.0-20.0 THYROID PANEL WITH TSH (7444 ) Reviewed date:03/14/2025 08:31:11 AM Interpretation: Performing Lab:Mara BLANCO LenexaKS[address] Miguel Mota MD Notes/Report: NON-FASTING NON-FASTING NON-FASTING NON-FASTING NON-FASTING NON-FASTING T3 UPTAKE 28 22-35 % N T4 (THYROXINE), TOTAL 7.4 5.1-11.9 mcg/dL N FREE T4 INDEX (T7) 2.1 1.4-3.8 N TSH 1.39 N Reference Range > or = 20 Years 0.40-4.50 Ranges First trimester 0.26-2.66 Second trimester 0.55-2.73 Third trimester 0.43-2.91 .VITAMIN D,25-OH,TOTAL,IA (1 7306) Reviewed date:03/10/2025 08:36:38 AM Interpretation: Performing Lab:Mara BLANCO01Lamar Matos[address] Miguel Mota MD Notes/Report: NON-FASTING NON-FASTING NON-FASTING NON-FASTING NON-FASTING NON-FASTING VITAMIN D,25-OH,TOTAL,IA 75 30-100 ng/mL N Vitamin D Status 25-OH Vitamin D: Deficiency: <20 ng/mL Insufficiency: 20 - 29 ng/mL Optimal: > or = 30 ng/mL For 25-OH Vitamin D testing on patients on D2-supplementation and patients for whom quantitation of D2 and D3 fractions is required, the QuestAssureD(TM) 25-OH VIT D, (D2,D3), LC/MS/MS is recommended: order code 41892 (patients >2yrs). See Note 1 NO COLLECTION DATE RECEIVED. WE HAVE USED THE DATE THE SPECIMEN WAS RECEIVED BY THIS LABORATORY THE COLLECTION DATE. IF THIS IS INCORRECT, PLEASE CONTACT CLIENT SERVICES. PHONE NUMBER: [phone] Note 1 For additional information, please refer to http://education.MonCV.com/faq/ELW651 (This link is being provided for informational/ educational purposes only.) ESTRADIOL AND ESTRONE (7437) Reviewed date:03/14/2025 08:31:18 AM Interpretation: Performing Lab:[facility]/Tomy [facility],[address] [facility] HospitalsCA[address] Pat Fischer MD,PhD,[place] Notes/Report: NON-FASTING ESTRONE 66 Adult Female Reference Ranges for Estrone: Follicular Phase: 10-138 pg/mL Luteal Phase: 16-173 pg/mL Postmenopausal Phase: < or = 65 pg/mL Pediatric Female Reference Ranges for Estrone: Pre-pubertal (1-9 years): < or = 34 pg/mL 10-11 years: < or = 72 pg/mL 12-14 years: < or = 75 pg/mL 15-17 years: < or = 188 pg/mL This test was developed and its analytical performance characteristics have been determined by [employer]. It has not been cleared or approved by the FDA. This assay has been validated pursuant to the CLIA regulations and is used for clinical purposes. NO COLLECTION DATE RECEIVED. WE HAVE USED THE DATE THE SPECIMEN WAS RECEIVED BY THIS LABORATORY THE COLLECTION DATE. IF THIS IS INCORRECT, PLEASE CONTACT CLIENT SERVICES. PHONE NUMBER: [phone] TEST AUTHORIZATION Reviewed date:03/13/2025 09:45:54 AM Interpretation: Performing Lab:FRANCIS [employer] [facility]-[id number] Chris Knutson, HtbmdnDC[address] Miguel Mota MD Notes/Report: NON-FASTING NON-FASTING NON-FASTING NON-FASTING NON-FASTING NON-FASTING TEST NAME: THYROID PANEL WITH TSH TEST CODE: 7444SB CLIENT CONTACT: APRIL WHEELER REPORT ALWAYS MESSAGE SIGNATURE The laboratory testing on this patient was verbally requested or confirmed by the ordering physician or his or her authorized new accounts banking representative after contact with an employee of [employer]. Federal regulations require that we maintain on file written authorization for all laboratory testing. Accordingly we are asking that the ordering physician or his or her authorized new accounts banking representative sign a copy of this report and promptly return it to the client associate. Signature: COMMENT Fax number: [phone] TEST IN QUESTION - DUPLICATE TSH Reviewed date:03/16/2025 08:48:28 AM Interpretation: Performing Lab:FRANCIS [employer]-[id number] Chris Knutson, IpuxyhTD[address] Miguel Mota MD Notes/Report: NON-FASTING NON-FASTING NON-FASTING NON-FASTING NON-FASTING NON-FASTING CONTAINER TYPE: L,S,3SS DUP TSH CODES TSHTIQ REASON FOR VISIT blood draw Medications Medication SIG (Take, Route, Frequency, Duration) Notes Start Date End Date Status Levocetirizine Dihydrochloride 5 MG Tablet 1 tablet in the evening Orally Once a day; Duration: 30 days Active Aspirin Low Dose 81 MG Tablet Delayed Release 1 tablet Orally Once a day; Duration: 90 days Active Celecoxib 200 mg Capsule 1 capsule orall y twice a day; Duration: 30 days Increasing to BID José Antonio Esquivel 12/07/2024 10:26:09 AM CDT > Active Pregabalin 200 MG Capsule 1 capsule orally three times daily; Duration: 28 days As needed 01/11/2025 Active HYDROcodone-Acetaminophen 10-325 MG Tablet 1 tablet as needed for pain Orally three times a day; Duration: 28 days 01/11/2025 Active rOPINIRole HCl 2 mg Tablet 1 tablet Orally daily; Duration: 30 days At bedtime Active hydroCHLOROthiazide 12.5 mg Tablet 1 tablet Orally daily; Duration: 30 days Active Clopidogrel Bisulfate 75 mg Tablet 1 tablet Orally Once daily; Duration: 30 days Active Isosorbide Mononitrate ER 30 mg Tablet Extended Release 24 Hour 1 tablet Orally daily; Duration: 30 days Active Lisinopril 20 mg Tablet 1 tablet Orally daily; Duration: 30 days Active Terbinafine HCl 250 MG Tablet 1 tablet Orally Once a day; Duration: 30 days Active amLODIPine Besylate 10 mg Tablet 1 tablet Orally daily; Duration: 30 days Active Dexcom G7 Professor Of Art - Device as directed; Duration: 90 days 12/11/2023 Active Farxiga 10 MG Tablet 1 tablet Orally Once a day; Duration: 30 days Active Ozempic (0.25 or 0.5 MG/DOSE) 2 MG/3ML Solution Pen-injector INJECT 0.25mg SUBCUTANEOUSLY EVERY WEEK *THANK YOU AND ESTELLA LOPEZSS YOU*; Duration: 30 Active Atorvastatin Calcium 20 MG Tablet 1 tablet Orally Once a day; Duration: 90 days Active Tresiba FlexTouch 200 UNIT/ML Solution Pen-injector 24 UNITS Subcutaneous daily; Duration: 90 days Active metFORMIN HCl ER 500 mg Tablet Extended Release 24 Hour TAKE 2 TABLETS BY MOUTH TWICE A DAY *THANK YOU AND ESTELLA LOPEZSS YOU*; Duration: 30 Active Magnesium 30 MG Tablet 1 tablet with a meal Orally Once a day; Duration: 30 days Every evening 07/27/2024 Active Folic Acid 1 MG Tablet 1 tablet Orally Once a day; Duration: 30 days 07/27/2024 Active Dexcom G7 Sensor - Miscellaneous as directed every 10 days; Duration: 90 days 12/11/2023 Active Symbicort 160-4.5 MCG/ACT Aerosol 2 puffs Inhalation twice a day; Duration: 30 days Active Cilostazol 100 MG Tablet TAKE 1 TABLET B Y MOUTH TWICE A DAY THANK YOU AND ESTELLA ESPINOSA YOU Oral; Duration: 30 Days Active Vitamin D (Ergocalciferol) 1.25 MG (28500 UT) Capsule 1 capsule Orally weekly; Duration: 30 days Active Encounters Encounter Location Date Provider Diagnosis [address] [facility] [address] [place] [address] 03/08/2025 José Antonio Esquivel Postmenopausal symptoms N95.9 Assessments Encounter Date Diagnosis (ICD Code) Assessment Notes Treatment Notes Treatment Clinical Notes Section Notes 03/08/2025 Postmenopausal symptoms (ICD-10 - N95.9) Plan Of Treatment Pending Test Test Name Order Date SEX HORMONE BINDING GLOBULIN (12399) Next Appt Details Provider Name:José Antonio Alcantar son, 04/04/2025 01:45:00 PM, [address] [place], [address], Provider Name:José Antonio Alcantar son, 04/05/2025 01:30:00 PM, [address] [place], [address], Progress Notes * EBEN DANGB:1975 ([age] yo F)Acc No.[id number]:03/08/2025 Patient: LORIN DUNBAR Provider: Immanuel Esquivel DO :1975 A ge:49 Y S ex:Female Date:03/08/2025 Address:[address] [place], [place] [id number] Subjective: * Chief Complaints: * B lood draw * Medications: T akingCilostazol 100 MG Tablet TAKE 1 TABLET BY MOUTH TWICE A DAY THANK YOU AND MAY GOD BLESS YOU Oral Dexcom G7 Sensor - Miscellaneous as directed every 10 days Symbicort 160-4.5 MCG/ACT Aerosol 2 puffs Inhalation twice a day Vitamin D (Ergocalciferol) 1.25 MG (71115 UT) Capsule 1 capsule Orally weekly Folic [...] SUBCUTANEOUSLY EVERY WEEK *THANK YOU AND MAY GOD BLESS YOU* Dexcom G7 Professor [employer] Art - Device as directed Farxiga 10 MG [...] day Taking Vitamin D (Ergocalciferol) 1.25 MG (38723 UT) Capsule 1 capsule Orally weekly Taking [...] SUBCUTANEOUSLY EVERY WEEK *THANK YOU AND ESTELLA LOPEZSS YOU* Taking Dexcom G7 Professor [employer] Art - Device as directed Taking Farxiga 10 [...] day , Notes to Pharmacist: Increasing to BID EsquivelJosé Antonio elizabeth 12/07/2024 10:26:09 AM CDT >Taking Levocetirizine Dihydrochloride 5 MG Tablet 1 tablet in the evening Orally Once a day Assessment: * Assessment: 1. P ostmenopausal symptoms - N95.9 (Primary) Plan: * Treatment: Value Reference Range A LBUMIN 4.2 3.6-5.1 - g/dL * S EX HORMONE BINDING GLOBULIN 47 17-124 - nmo l/L * T ESTOSTERONE, FREE 1.6 0.2-5.0 - pg/mL * T ESTOSTERONE,BIOAVAILABLE 3.1 0.5-8.5 - ng/dL * T ESTOSTERONE, TOTAL, MS 18 2-45 - ng/dL ?LAB: THYROID PANEL WITH TSH (7444) (Collection Date & Time - 03/09/2025 05:57 AM)* Value Reference Range T 3 UPTAKE 28 22-35 - % * T 4 (THYROXINE), TOTAL 7.4 5.1-11.9 - mcg/dL * F REE T4 INDEX (T7) 2.1 1.4-3.8 - * T SH 1.39 - mIU/L ?LAB: SEX HORMONE BINDING GLOBULIN (12897) ?LAB: ESTRADIOL AND ESTRONE (7437) (Collection Date & Time - 03/09/2025 05:30 AM)* Value Reference Range E STRONE 66 - pg/mL ?LAB: .COMPREHENSIVE METABOLIC PANEL (21617) CMP (Collection Date & Time - 03/09/2025 05:57 AM)* Value Reference Range G LUCOSE 215 H 65-99 - mg/dL * U ALLISON NITROGEN (BUN) 26 H 7-25 - mg/dL * C REATININE 1.03 H 0.50-0.99 - mg/dL * B UN/CREATININE RATIO 25 H 6-22 - (calc) * S ODIUM 134 L 135-146 - mmol/L * P OTASSIUM 4.9 3.5-5.3 - mmol/L * C HLORIDE 99 98-110 - mmol/L * C ARBON DIOXIDE 27 20-32 - mmol/L * C ALCIUM 9.5 8.6-10.2 - mg/dL * P ROTEIN, TOTAL 6.5 6.1-8.1 - g/dL * A LBUMIN 4.1 3.6-5.1 - g/dL * G LOBULIN 2.4 1.9-3.7 - g/dL (calc ) * A LBUMIN/GLOBULIN RATIO 1.7 1.0-2.5 - (calc) * B ILIRUBIN, TOTAL 0.5 0.2-1.2 - mg/dL * A LKALINE PHOSPHATASE 104 31-125 - U/L * A ST 13 10-35 - U/L * A LT 19 6-29 - U/L * E GFR 67 > OR = 60 - mL/min/1 .73m2 ?LAB: .CBC (INCLUDES DIFF/PLT) (2955) (Collection Date & Time - 03/09/2025 05:57 AM)* Value Reference Range W KAREN BLOOD CELL COUNT 8.6 3.8-10.8 - Thousan d/uL * R ED BLOOD CELL COUNT 4.92 3.80-5.10 - Million/ uL * H EMOGLOBIN 15.3 11.7-15.5 - g/dL * H EMATOCRIT 47.2 H 35.0-45.0 - % * M CV 95.9 80.0-100.0 - fL * M CH 31.1 27.0-33.0 - pg * M CHC 32.4 32.0-36.0 - g/dL * R DW 13.4 11.0-15.0 - % * P LATELET COUNT 285 140-400 - Thousand/u L * N EUTROPHILS 60.3 - % * A BSOLUTE NEUTROPHILS 5186 7510-6388 - cells/uL * L YMPHOCYTES 31.7 - % * A BSOLUTE LYMPHOCYTES 2726 850-3900 - cells/uL * M ONOCYTES 6.0 - % * A BSOLUTE MONOCYTES 516 200-950 - cells/uL * E OSINOPHILS 1.4 - % * A BSOLUTE EOSINOPHILS 120 15-500 - cells/uL * B ASOPHILS 0.6 - % * A BSOLUTE BASOPHILS 52 0-200 - cells/uL * M PV 9.9 7.5-12.5 - fL ?LAB: THYROID PEROXIDASE ANTIBODIES (5081) (Collection Date & Time - 03/09/2025 05:57 AM)* Value Reference Range T HYROID PEROXIDASE ANTIBODIES 1 <9 - IU/mL ?LAB: VITAMIN B12/FOLATE, SERUM PANEL (7065) (Collection Date & Time - 03/09/2025 05:57 AM)* Value Reference Range F OLATE, SERUM >24.0 - ng/mL * V ITAMIN B12 971 564-3482 - pg/mL ?LAB: LH (615) (Collection Date & Time - 03/09/2025 05:57 AM)* Value Reference Range L H 7.9 - mIU/mL ?LAB: PROLACTIN (746) (Collection Date & Time - 03/09/2025 05:57 AM)* Value Reference Range P ROLACTIN 8.5 - ng/mL ?LAB: .VITAMIN D,25-OH,TOTAL,IA (35540) (Collection Date & Time - 03/09/2025 05:57 AM)* Value Reference Range V ITAMIN D,25-OH,TOTAL,IA 75 30-100 - ng/mL * Labs: * L ab: TEST IN QUESTION - DUPLICATE TSH (Collection Date & Time - 03/09/2025 05:57 AM) Value Reference Range C ONTAINER TYPE: L,S,3SS - * D UP TSH CODES TSHTIQ - * Lab, Interface 03/09/2025 08 :00:57 : This order was created by the Interface. ?Lab: TEST AUTHORIZATION (Collection Date & Time - 03/09/2025 05:57 AM)* Value Reference Range T EST NAME: THYROID PANEL WITH TSH - * T EST CODE: [id number] - * Kevin CASEY CONTACT: APRIL WHEELER - * Lab, Interface 03/13/2025 09 :10:12 : This order was created by the Interface. * Procedure Codes: 3 6415 VENIPUNCT, ROUTINE* Billing Information: * Procedure Codes: 26120 VENIPUNCT, ROUTINE*. * Electronic signature of Parish Esquivel DO on 03/17/2025 at 05:08 PM CDT Sign off status: Pending * Provider: Immanuel Esquivel DO Date: 0 03/08/2025 Generated for Aashish nazario/Cynthia/Blayne on: 1 05:08 PM CDT
--- OUTSIDE RECORDS SUMMARY | 2025-03-17 17:08 | XMS_ITS | Data Portability ---
Author Organization [facility] Valente Stewart [facility] Address [address] [facility] [address] [place] [address] Assessment No assessment recorded. Plan of Treatment Reminders Order Date Submit Date Provider Last Modified By Organization Details Last Modified Time Details Appointments NEW PATIENT 2024 08:00A Alesha Rickey Wells, DO Not available Not available Not available Lab None recorded. Referral None recorded. Procedures None recorded. Surgeries None recorded. Imaging None recorded. Medication Orders mupirocin 2 % topical ointment [address], [address], 11/21/2024 13:45:00 sulfameth oxazole 800 mg-trimet hoprim 160 mg tablet [address], [address], 12/03/2024 05:01:20 fluconazo le 150 mg tablet [address], [address], 11/21/2024 13:44:59 Patient TargetsNo targets recorded. Patient InstructionsNo instructions recorded. Reason for Referral None Reported. Problems Name Problem SNOMED Code Status Onset Date Resolution Date Notes Provider Name and Address Organization Details Recorded Time History of gynecolog ical disorder 950978596 Active 2020 HISTORY OF OVARIAN CYST; 11/13/2020 2:33PM by Rosemary Rocha LPN, Office Visit; Promoted; acuity set as *; Not Available [facility] 3 03:16:09 Carpal tunnel syndrome 99289460 Active 2020 CARPAL TUNNEL SYNDROME, LEFT; Impression : Was seeing Dr. Roberts in [place] but moved here; Recorded 11/13/2020 2:33PM by Rosemary Rocha LPN, Office Visit; Promoted; acuity set as *; Not Available [facility] 3 03:16:09 Vitamin D deficienc y 12854178 Active 2020 VITAMIN D DEFICIENCY ; Recorded 11/13/2020 2:33PM by Rosemary Rocha LPN, Office Visit; Promoted; acuity set as *; Not Available [facility] 3 03:16:18 Neuropath y 377873838 Active 2020 NEUROPATHY ; Impression : Recently changed to Lyrica, now on 100mg TID; Recorded 11/13/2020 2:33PM by Rosemary Rocha LPN, Office Visit; Promoted; acuity set as *; Not Available [facility] 3 03:16:18 Restless legs syndrome 81244597 Active 2020 RLS (RESTLESS LEGS SYNDROME); Recorded 11/13/2020 2:33PM by Rosemary Rocha LPN, Office Visit; Promoted; acuity set as *; Not Available [facility] 3 03:16:20 Problem Notes None recorded. Procedures Surgical History Date Name Laterality Status Provider Name and Address Organization Details Recorded Time 11/21/2024 Incision/D rainage-Si mple completed SUNIL PRAKASH [address] [place] [address], [id number], [facility] 11/21/2024 18:18:44 Imaging Results None recorded. Procedure Notes None recorded. Medical Equipment None Reported. Allergies No known drug allergies Medications Name Sig Start Date Stop Date Status Note LastModified by Organization Details LastModified Time amoxicill in 500 mg capsule TAKE ONE CAPSULE BY MOUTH FOUR TIMES DAILY FOR 7 DAYS THANK YOU AND MAY GOD BLESS YOU 11/21 completed Not Available Not Available Not Available cilostazo l 100 mg tablet TAKE 1 TABLET BY MOUTH TWICE A DAY THANK YOU AND MAY GOD BLESS YOU active Not Available Not Available No t Available atorvasta tin 20 mg tablet TAKE ONE TABLET BY MOUTH EVERY DAY THANK YOU AND MAY RADHA LOPEZSS YOU active Not Available Not Available No t Available ropinirol e 1 mg tablet at bedtime 11/21 completed Recorded 11/14/19 2:40PM by Rosemary Rocha LPN, Office Visit; Refill Quantity : 90; Tablet; Not Available Not Available Not Available azithromy ezequiel 250 mg tablet TAKE 2 TABLETS BY MOUTH ON DAY 1, THEN TAKE 1 TABLET DAILY ON DAYS 2-5 THANK YOU AND MAY RADHA BLESS YOU 11/21 completed Not Available Not Available Not Available ibuprofen 800 mg tablet three times daily, as needed 11/21 completed 0; Recorded 11/14/19 2:40PM by Rosemary Rocha LPN, Office Visit; Not Available Not Available Not Available metoprolo l tartrate 100 mg tablet TAKE ONE TABLET BY MOUTH TWICE DAILY THANK YOU AND MAY RADHA LOPEZSS YOU active Not Available Not Available No t Available tizanidin e 4 mg tablet TAKE ONE TABLET BY MOUTH THREE TIMES DAILY NEEDED THANK YOU AND MAY RADHA BLESS YOU 11/21 completed Not Available Not Available Not Available fluconazo le 150 mg tablet TAKE 1 TABLET BY MOUTH EVERY DAY active Not Available Not Available No t Available lisinopri l 20 mg tablet TAKE ONE TABLET BY MOUTH EVERY DAY THANK YOU AND MAY RADHA LOPEZSS YOU active Not Available Not Available No t Available isosorbid e mononitra te ER 30 mg tablet,ex tended release 24 hr TAKE ONE TABLET BY MOUTH EVERY DAY THANK YOU AND MAY RADHA BLESS YOU active Not Available Not Available No t Available clopidogr el 75 mg tablet TAKE ONE TABLET BY MOUTH EVERY DAY THANK YOU AND MAY RADHA BLESS YOU active Not Available Not Available No t Available sulfameth oxazole 800 mg-trimet hoprim 160 mg tablet Take 1 tablet every 12 hours by oral route for 5 days. 12/03 completed Not Available Not Available Not Available hydrocodo ne 10 mg-acetam inophen 325 mg tablet TAKE ONE TABLET BY MOUTH THREE TIMES DAILY NEEDED FOR PAIN THANK YOU AND MAY RADHA BLESS YOU active Not Available Not Available No t Available aspirin 81 mg tablet,de layed release TAKE ONE TABLET BY MOUTH EVERY DAY THANK YOU AND MAY GOD BLESS YOU active Not Available Not Available No t Available terbinafi ne HCl 250 mg tablet TAKE ONE TABLET BY MOUTH EVERY DAY THANK YOU AND MAY RADHA BLESS YOU active Not Available Not Available No t Available lancets three times daily 2020 active Recorded 11/14/19 21 2:40PM by Rosemary Rocha LPN, Office Visit; Refill Quantity : 300; Each; Not Available Not Available Not Available amlodipin e 10 mg tablet TAKE ONE TABLET BY MOUTH EVERY DAY THANK YOU AND MAY RADHA BLESS YOU active Not Available Not Available No t Available isopropyl alcohol 70 % solution three times daily 2020 active Recorded 10/24/19 21 3:37PM by Kathy Riley CMT, Office Visit; Refill Quantity : 270; Pad; Not Available Not Available Not Available hydrocodo ne 7.5 mg-acetam inophen 325 mg tablet TAKE 1 TABLET BY MOUTH 4 TIMES A DAY NEEDED THANK YOU AND MAY RADHA BLESS YOU 11/21 completed Not Available Not Available Not Available ropinirol e 2 mg tablet TAKE ONE TABLET BY MOUTH AT BEDTIME THANK YOU AND MAY RADHA BLESS YOU active Not Available Not Available No t Available metoprolo l tartrate 50 mg tablet TAKE ONE-HALF TABLET BY MOUTH TWICE DAILY THANK YOU AND MAY RADHA LOPEZSS YOU active Not Available Not Available No t Available nitroglyc meredith 0.4 mg sublingua l tablet DISSOLVE 1 TABLET UNDER THE TONGUE EVERY 5 MINUTES NEEDED FOR CHEST PAIN. DO NOT EXCEED 3 DOSES IN 15 MIN. IF NO RELIEF CALL 911 active Not Available Not Available No t Available mupirocin 2 % topical ointment APPLY A SMALL AMOUNT TO AFFECTED AREA THREE TIMES DAILY active Not Available Not Available No t Available ergocalci ferol (vitamin D2) 1,250 mcg (50,000 unit) capsule TAKE ONE CAPSULE BY MOUTH EVERY WEEK THANK YOU AND MAY RADHA BLESS YOU active Not Available Not Available No t Available celecoxib 100 mg capsule TAKE ONE CAPSULE BY MOUTH TWICE DAILY THANK YOU AND MAY RADHA BLESS YOU active Not Available Not Available No t Available metformin ER 500 mg tablet,ex tended release 24 hr TAKE 2 TABLETS BY MOUTH TWICE A DAY THANK YOU AND MAY RADHA LOPEZSS YOU active Not Available Not Available No t Available insulin aspart (U-100) 100 unit/mL (3 mL) subcutane ous pen inject TWO units UNDER THE SKIN THREE TIMES DAILY WITH MEALS (USE sliding scale) max daily DOSE of 30 UNITS PER DAY THANK YOU AND ESTELLA ESPINOSA YOU 11/21 completed Not Available Not Available Not Available pregabali n 150 mg capsule TAKE ONE CAPSULE BY MOUTH THREE TIMES DAILY THANK YOU AND ESTELLA ESPINOSA YOU 11/21 completed Not Available Not Available Not Available pregabali n 200 mg capsule TAKE ONE CAPSULE BY MOUTH THREE TIMES DAILY NEEDED THANK YOU AND ESTELLA ESPNIOSA YOU active Not Available Not Available No t Available calcium-m agnesium- zinc daily 11/21 completed 0; Recorded 11/14/19 21 2:41PM by Rosemary Rocha LPN, Office Visit; Not Available Not Available Not Available Lipitor daily 11/21 completed 0; Recorded 11/14/19 21 2:40PM by Rosemary Rocha LPN, Office Visit; Not Available Not Available Not Available amlodipin e 11/21 completed Not Available Not Available Not Available Vitamin D weekly 11/21 completed 0; Recorded 11/14/19 21 2:40PM by Rosemary Rocha LPN, Office Visit; Not Available Not Available Not Available lisinopri l daily 11/21 completed Recorded 10/24/19 21 3:54PM by Kathy Riley CMT, Office Visit; Refill Quantity : 90; Tablet; Not Available Not Available Not Available Celebrex daily 11/21 completed DOC LB/shonda; 97329; Recorded 05/10/20 11:47AM by Dot Rowland (i jocelynn through Susan Tate MD), Refill Request; Refill Quantity : 90; Capsule; Not Available Not Available Not Available Pen Needle daily 2020 active DM Type 2 E11.65; Recorded 10/24/19 3:37PM by Kathy Riley CMT, Office Visit; Refill Quantity : 270; Each; Not Available Not Available Not Available Novolog FlexPen U-100 Insulin three times daily with meals 11/21 completed 0; Recorded 11/14/19 21 2:40PM by Rosemary Rocha LPN, Office Visit; Not Available Not Available Not Available Cymbalta daily 11/21 completed Recorded 09/18/19 4:57PM by SUNIL Lazar, Office Visit; Not Available Not Available Not Available Lyrica three times daily 11/21 completed 9; Recorded 10/04/19 2:07PM by Kathy Riley CMT (Yina cabezas through Michel Mckinney MD), Historic al Summary; Refill Quantity : 270; Capsule; Not Available Not Available Not Available varenicli ne tartrate 0.5 mg tablet TAKE ONE TABLET BY MOUTH AFTER eating TWICE DAILY THANK YOU AND MAY GOD BLESS YOU active Not Available Not Available No t Available BD Ultra-Fin e Short Pen Needle 31 gauge x 5/16 USE DIRECTED ONE DAILY THANK YOU AND MAY GOD BLESS YOU active Not Available Not Available No t Available hydrochlo rothiazid e 12.5 mg tablet TAKE ONE TABLET BY MOUTH EVERY DAY THANK YOU AND MAY GOD BLESS YOU active Not Available Not Available No t Available Janumet two times daily 11/21 completed 71222; Recorded 02/23/20 9:10AM by Kathy Riley CMT (Yina cabezas through SUNIL Lazar), Refill Request; Refill Quantity : 180; Tablet; Not Available Not Available Not Available Symbicort 160 mcg-4.5 mcg/actua tion HFA aerosol inhaler INHALE 2 PUFFS BY MOUTH TWICE DAILY THANK YOU AND MAY GOD BLESS YOU active Not Available Not Available No t Available Lantus Solostar U-100 Insulin at bedtime 11/21 completed Titrate up until fasting sugars around 150 each morning; Recorded 11/15/19 11:33AM by Kathy Riley CMT, Office Visit; Refill Quantity : 6; Each; Not Available Not Available Not Available levocetir izine 5 mg tablet TAKE ONE TABLET BY MOUTH DAILY NEEDED FOR ALLERGIE S THANK YOU AND MAY GOD BLESS YOU active Not Available Not Available No t Available Prodigy No Coding three times daily 2020 active Insulin Dependan t Type 2 DM. E11.65; 08859; Recorded 11/14/19 2:40PM by Rosemary Rocha LPN (Yina cabezas through SUNIL Lazar), Office Visit; Refill Quantity : 300; Strip; Not Available Not Available Not Available amlodipin e besylate (bulk) daily 11/21 completed schedule appt.; 42391; Recorded 06/05/20 11:20AM by Kathy Riley CMT (Authori jocelynn through SUNIL Lazar), Refill Request; Refill Quantity : 0; Not Available Not Available Not Available Farxiga 10 mg tablet TAKE ONE TABLET BY MOUTH EVERY DAY THANK YOU AND MAY GOD BLESS YOU active Not Available Not Available No t Available OneTouch Verio Meter three times daily 2020 active dx: DM type 2; Recorded 11/14/19 2:40PM by Rosemary Rocha LPN, Office Visit; Refill Quantity : 0; Not Available Not Available Not Available Pentips Pen Needle 32 gauge x 5/32 USE ONE PEN SUBCUTAN EOUSLY EVERY EVENING WITH LANCETS active Not Available Not Available No t Available Tresiba FlexTouch U-200 insulin 200 unit/mL (3 mL) subcutane ous pen INJECT 24 UNITS SUBCUTAN EOUSLY ONCE DAILY THANK YOU AND MAY GOD BLESS YOU active Not Available Not Available No t Available Tresiba FlexTouch U-100 insulin 100 unit/mL (3 mL) subcutane ous pen INJECT 10 UNITS SUBCUTAN EOUSLY EVERY DAY THANK YOU AND MAY GOD BLESS YOU active Not Available Not Available No t Available FreeStyle Odalis 14 Day Sensor kit three times daily 2020 active 33755; Recorded 10/24/19 21 3:37PM by Kathy Riley CMT (Authori jocelynn through SUINL Lazar), Office Visit; Refill Quantity : 3; Box; Not Available Not Available Not Available DisposeRx packet Use as directed jersey g to package directio ns to dispose of any medicati ons that are no longer used or no longer wanted active Not Available Not Available No t Available Mounjaro 5 mg/0.5 mL subcutane ous pen injector USE ONE injectio n SUBCUTAN EOUSLY ONCE A WEEK FOR 28 DAYS THANK YOU AND MAY GOD BLESS YOU 11/21 completed Not Available Not Available Not Available Dexcom G7 Acetylene Gas Compressor FOLLOW PACKAGE DIRECTIO NS DIRECTED BY DOCTOR THANK YOU AND MAY GOD BLESS YOU active Not Available Not Available No t Available Dexcom G7 Sensor device USE DIRECTED EVERY 10 DAYS active Not Available Not Available No t Available Ozempic 0.25 mg or 0.5 mg (2 mg/3 mL) subcutane ous pen injector INJECT 0.25mg SUBCUTAN EOUSLY EVERY WEEK THANK YOU AND ESTELLA ESPINOSA YOU active Not Available Not Available No t Available Vitals Date Recorded Body height Body mass index (BMI) Body weight Oxygen saturation Oxygen saturation in Arterial blood by Pulse oximetry Heart rate Body temperature Systolic And Diastolic Provider Name and Address Organization Details Last Updated DateTime 5 165.1 cm 34.3 kg/m2 60221.4 3 g 96 % 96 % 72 /min 97.6 [degF] 96/60 mm[Hg] Veronica Munroeedvin [facility] 5 12:34:10 Social History Question Answer Notes LastModified by Organizat ion Details LastModified Time Tobacco Smoking Status Current Every Day Smoker Veronica Ludwig[facility]vin [facility] 11/21/2024 12:30:27 What Was The Date Of Your Most Recent Tobacco Screening? 11/21/2024 [email or web address] Information not available 11/21/2024 Sex: Unknown Functional Status None recorded. Mental Status None recorded. Family History Nothing Reported. Medical History No medical history recorded. Gynecological HistoryNo gynecological history recorded. Obstetrics History GPAL:G 0 P 0 0 0 0 Past Encounters Encounter ID Performer Location Encounter Start Date Encounter Closed Date Diagnosis/Indication Diagnosis SNOMED-CT Code Diagnosis ICD10 Code Diagnosis IMO Codes Diagnosis Note [id number] SUNIL PRAKASH [facility] ([facility]) [address] [place] [address] 11/21/2024 11:10:08 11/21/2024 18:50:31 Paronychia of finger of right hand 9492353733 6558983 L03.011 [id number] Abx as prescribed for skin infection. Complete full course. Keep site clean and dry. Wash with antibacter ial soap and water. Pat dry . Apply antibiotic ointment as directed. RTC with any new or worsening symptoms. Health Concerns Section Related Observation LastModified by Organization Detai ls LastModified Time None Recorded Concern Status LastModified by Organization Details LastModified Time None Recorded Advance Directives Directive None Recorded Payers Insurance Date Sequence Insurance Name Policy Number Policy Juarez Covered Member ID Juarez Member ID Guarantor Name 11/21/2024 1 [facility] - [facility]AN (PPO) MOD[employer] Kya Castillo [id number] Kya Castillo 11/21/2024 1 [facility] (MEDICARE REPLACEMENT/ADV ANTAGE - HMO) MODSNP Kya Castillo [id number] Kya Castillo 11/21/2024 2 [place] Kya Castillo [id number] Kya Castillo 11/23/2024 [place] [facility] Kya Castillo [id number] Kya Castillo Notes Date Note Type Note Provider Name and Address Organization Details Recorded Time 11/21/2024 text/html ROS as noted in the HPI walk inx 4 days blister, redness on right index finger, pt has popped with pus drainage. Patient feels like she had a hangnail there but has also worried about it being a bite of some sort. CHAD CARDENAS, SUNIL [address] [place], [address], [facility] 11/21/2024 18:19:32 OBGyn Episode No OBEpisode recorded.
--- OUTSIDE RECORDS SUMMARY | 2025-03-17 17:08 | XMS_ITS | Clinical Summary ---
Author Organization [facility] [address] Address [address] [facility] [place] [address] Care Team Providers Care Bow Maker Name Role Phone Unavailable Primary Care Provider Unavailabl e Allergies No known active allergies Medications aspirin (Sahra Chewable Aspirin) 81 mg Tablet, Chewable Take 81 mg by mouth daily. 01/13/20 24 Active budesonide-for moteroL (SYMBICORT) 160-4.5 mcg/actuation HFA Aerosol Inhaler Take 2 Puffs by inhalation 2 times daily. 01/13/20 24 Active celecoxib (CeleBREX) 100 mg capsule Take 100 mg by mouth daily. 01/13/20 24 Active clopidogreL (PLAVIX) 75 mg Tablet Take 75 mg by mouth daily. 01/13/20 24 Active dapagliflozin propanediol (FARXIGA) 10 mg Tablet Take 10 mg by mouth daily. 01/13/20 24 Active ergocalciferol (VITAMIN D2) 50,000 unit capsule Take 50,000 Int'l Units by mouth every 7 days. 01/13/20 24 Active HYDROcodone-ac etaminophen (NORCO) 7.5-325 mg Tablet Take 1 Tablet by mouth every 4 hours as needed for Pain. 01/13/20 Active atorvastatin (LIPITOR) 20 mg tablet Take 20 mg by mouth daily. 01/13/20 24 Active insulin aspart U-100 (NovoLOG Flexpen U-100 Insulin) 100 unit/mL pen syringe Inject 100 Units by subcutaneous injection 3 times daily with meals. 01/13/20 24 Active levocetirizine (XYZAL) 5 mg tablet Take 5 mg by mouth 1 time daily as needed. 01/13/20 24 Active isosorbide mononitrate (IMDUR) 30 mg Extended Release 24 hour tablet Take 30 mg by mouth daily in the morning. 01/13/20 Active pregabalin (LYRICA) 150 mg Capsule Take 150 mg by mouth every 8 hours. 01/13/20 Active rOPINIRole (REQUIP) 2 mg Tablet Take 2 mg by mouth daily at bedtime. 01/13/20 Active metFORMIN (GLUCOPHAGE XR) 500 mg Extended Release 24 hour tablet Take 1,000 mg by mouth 2 times daily with meals. 01/13/20 24 Active lisinopriL (PRINIVIL) 20 mg tablet Take 20 mg by mouth daily. Active hydroCHLOROthi azide 12.5 mg tablet 12.5 mg daily. Activ e folic acid (FOLVITE) 1 mg tablet Take 1 mg by mouth daily. 07/27/19 Active amLODIPine (NORVASC) 10 mg tablet Take [...] IF NO RELIEF CALL 911 25 Tablet 09/13/19 25 Active metoprolol tartrate (LOPRESSOR) 100 mg tablet TAKE ONE TABLET BY MOUTH TWICE DAILY *THANK YOU AND ESTELLA GARCIA BLESS YOU* 180 Tablet 1 02/29/20 25 Active metoprolol tartrate (LOPRESSOR) 100 mg tablet TAKE ONE TABLET BY MOUTH TWICE DAILY *THANK YOU AND MAY GOD BLESS YOU* 180 Tablet 1 09/15/19 25 025 Discontinued Active Problems Problem Noted Date Diagnosed Date Claudication 02/10/2024 Arteriosclerosis of coronary artery 01/13/2024 Chest pain 01/13/2024 Hyperlipidemia 01/13/2024 Hypertension 01/13/2024 Diabetic neuropathy 08/27/2020 Encounters Date Type Department Care Team Description 02/28/2025 External Device Data [facility] Provider, Abstract 02/28/2025 [facility] [address] [address] Vasquez Sheth MD 01/18/2025 External Device Data [facility] Provider, [...] Comments Blood Pressure 90/60 08/18/2024 10:26 AM PLAYER MANAGER Pulse 84 08/18/2024 10:26 AM PLAYER MANAGER Temperature - - Respiratory Rate - - Oxygen Saturation - - Inhaled Oxygen Concentration - - Weight 94.7 kg (208 lb 12.8 oz) 025 12:49 PM PLAYER MANAGER Height 165.1 cm (5' 5 ) 08/17/2024 12:4 9 PM PLAYER MANAGER Body Mass Index 34.75 08/17/2024 12:49 PM PLAYER MANAGER Plan of Treatment Health Maintenance Due Date Last Done Comments [...] 11/22/2021, 11/22 INFLUENZA VACCINE (#1) 2025 Insurance [facility] DUAL COMPLETE HMO DSNP [facility] [id number] MEDICAID [place]
--- OUTSIDE RECORDS SUMMARY | 2025-03-17 17:08 | XMS_ITS | Patient Health Record ---
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 Traci Loo Unavailable Muna Mijares Unavailable [phone] Zaire Womack Unavailable [phone] Allergies Allergen (clinical drug ingredient) Drug/Non Drug Allergy documented on EMR Reaction Allergy Type Onset Date Status No Known Drug Allergy Unknown Drug Allergy Active Results Component Value Reference Range Flag Notes HEMOGLOBIN A1c % Reviewed date:10/04/2024 08:10:31 AM Interpretation: Performing Lab: Notes/Report: HEMOGLOBIN A1c % 9.40 4.5-6.3 % H BUN/CREA RATIO 29.5 9-28 Ratio H GLOBULIN 2.70 2.0-5.0 g/dL A/G RATIO 1.6 1.1-2.5 Ratio Full Confirmation - Specimen Type Urine Reviewed [...] Cannabis Screen Positive 150 ng/mL ng/ml H TEST AUTHORIZATION Reviewed date:03/13/2025 09:45:54 AM Interpretation: Performing Lab:KS, [facility]-Zrmcoa30597 Chris [address], NpmhgkQU[address] Miguel Mota MD Notes/Report: NON-FASTING NON-FASTING NON-FASTING NON-FASTING NON-FASTING NON-FASTING TEST NAME: THYROID PANEL WITH TSH TEST CODE: [id number] CLIENT CONTACT: APRIL LANDAVERDEONY REPORT ALWAYS MESSAGE SIGNATURE The laboratory testing on this patient was verbally requested or confirmed by the ordering physician or his or her authorized automotive sales representative after contact with an employee of [facility]. Federal regulations require that we maintain on file written authorization for all laboratory testing. Accordingly we are asking that the ordering physician or his or her authorized automotive sales representative sign a copy of this report and promptly return it to the client success director. Signature: COMMENT Fax number: [phone] .HEMOGLOBIN A1c (496) Reviewed date:03/30/2024 09:13:52 AM Interpretation: Performing Lab:Mara BLANCO-Wlwqfv39637 Chris Knutson, LmxdsjES[address] Miguel Mota MD Notes/Report: NON-FASTING HEMOGLOBIN A1c 11.3 <5.7 % of total Hgb H For someone without known diabetes, a hemoglobin A1c value of 6.5% or greater indicates that they may have diabetes and this should be confirmed with a follow-up test. For someone with known diabetes, a value <7% indicates that their diabetes is well controlled and a value greater than or equal to 7% indicates suboptimal control. A1c targets should be individualized based on duration of diabetes, age, comorbid conditions, and other considerations. Currently, no consensus exists regarding use of hemoglobin A1c for diagnosis of diabetes for children. NO COLLECTION DATE RECEIVED. WE HAVE USED THE DATE THE SPECIMEN WAS RECEIVED BY THIS LABORATORY THE COLLECTION DATE. IF THIS IS INCORRECT, PLEASE CONTACT CLIENT SERVICES. PHONE NUMBER: [phone] APOLIPOPROTEIN B (5224) Reviewed date:04/07/2024 08:22:51 AM Interpretation: Performing Lab:Mara HERNANDEZ/[facility] [place] [facility],[address] [facility] Pat Fischer MD,PhD,[place] Notes/Report: NON-FASTING APOLIPOPROTEIN B 104 H Reference Range: <90 Risk Category: Optimal <90 Moderate 90-119 High > or = 120 Cardiovascular event risk category cut points (optimal, moderate, high) are based on National Lipid Association recommendations - Cheek TA et al. J of Clin Lipid. 2015;9:129-169 and Danilo PS et al. Endocr Pract. 2017;23(Suppl 2):1-87. HOMOCYSTEINE (53225) Reviewed date:03/30/2024 04:08:56 PM Interpretation: Performing Lab:Mara BLANCO-Pyvtbz97409 Chris Knutson, UytjijXI[address] Miguel Mota MD Notes/Report: NON-FASTING HOMOCYSTEINE 9.8 <10.4 umol/L N Homocysteine is increased by functional deficiency of folate or vitamin B12. Testing for methylmalonic acid differentiates between these deficiencies. Other causes of increased homocysteine include renal failure, folate antagonists such as methotrexate and phenytoin, and exposure to nitrous oxide. Aileen Carlson et al., Radha Overnight Stocker Med. 1999;131(5):331-9. CBC + AutoDiff 5 Reviewed date:03/29/2024 02:04:16 [...] 40.62-71.65 % NEUTROPHILS # 5.50 1.50-7.80 10^3/uL COMP. METABOLIC Reviewed date:03/29/2024 02:03:56 PM Interpretation: [...] 0.3 0.2-1.2 mg/dL ALT 21 6-29 IU/L LIPID PANEL Reviewed date:03/29/2024 02:04:10 PM Interpretation: Performing Lab: Notes/Report: CHOLESTEROL 159 0-200 mg/dL HDL CHOLESTEROL 33 50 mg/dL L TRIGLYCERIDES 553 0-150 mg/dL H BUN/CREA RATIO 27.9 9-28 Ratio GLOBULIN 2.70 2.0-5.0 g/dL A/G RATIO 1.5 1.1-2.5 Ratio CHOL/HDL RATIO 4.82 T4, FREE Reviewed date:03/29/2024 02:04:23 PM Interpretation: Performing Lab: Notes/Report: T4, FREE 1.09 0.8-1.8 ng/dL TSH Reviewed date:03/29/2024 02:04:29 PM Interpretation: Performing Lab: Notes/Report: TSH 1.426 0.40-4.50 mIU/L TEST IN QUESTION - DUPLICATE TSH Reviewed date:03/16/2025 08:48:28 AM Interpretation: Performing Lab:Mara BLANCO-Pihrqr50037 Chris [facility], WjtgrhLF[address] Miguel Mota MD Notes/Report: NON-FASTING NON-FASTING NON-FASTING NON-FASTING NON-FASTING NON-FASTING CONTAINER TYPE: L,S,3SS DUP TSH CODES TSHTIQ ESTRADIOL AND ESTRONE (7437) Reviewed date:03/14/2025 08:31:18 AM Interpretation: Performing Lab:Mara HERNANDEZ/[facility],[address] [facility] Pat Fischer MD,PhD,[place] Notes/Report: NON-FASTING ESTRONE 66 [...] analytical performance characteristics have been determined by [facility]. It has not been cleared or approved by the FDA. This assay has been validated pursuant to the CLIA regulations and is used for clinical purposes. NO COLLECTION DATE RECEIVED. WE HAVE USED THE DATE THE SPECIMEN WAS RECEIVED BY THIS LABORATORY THE COLLECTION DATE. IF THIS IS INCORRECT, PLEASE CONTACT CLIENT SERVICES. PHONE NUMBER: [phone] THYROID PANEL WITH TSH (3014 ) Reviewed date:03/14/2025 08:31:11 AM Interpretation: Performing Lab:Mara BLANCO-Nnnhgp49845 Yulissa GarcíaaKS[address] Miguel Mota MD Notes/Report: NON-FASTING NON-FASTING NON-FASTING NON-FASTING NON-FASTING NON-FASTING T3 UPTAKE 28 22-35 % N T4 (THYROXINE), TOTAL 7.4 5.1-11.9 mcg/dL N FREE T4 INDEX (T7) 2.1 1.4-3.8 N TSH 1.39 N Reference Range > or = 20 Years 0.40-4.50 Ranges First trimester 0.26-2.66 Second trimester 0.55-2.73 Third trimester 0.43-2.91 PROLACTIN (746) Reviewed date:03/10/2025 08:36:53 AM Interpretation: Performing Lab:Mara BLANCO-Ghbcgv18143 Yulissa GarcíaaKS[address] Miguel Mota MD Notes/Report: NON-FASTING NON-FASTING NON-FASTING NON-FASTING NON-FASTING NON-FASTING PROLACTIN 8.5 N Reference Range Females Non- 3.0-30.0 10.0-209.0 Postmenopausal 2.0-20.0 LH (615) Reviewed date:03/10/2025 08:36:56 AM Interpretation: Performing Lab:Mara BLANCO-Yhjrrr97449 Yulissa GarcíaaKS[address] Miguel Mota MD Notes/Report: NON-FASTING NON-FASTING NON-FASTING NON-FASTING NON-FASTING NON-FASTING LH 7.9 N Reference Range Follicular Phase 1.9-12.5 Mid-Cycle Peak 8.7-76.3 Luteal Phase 0.5-16.9 Postmenopausal 10.0-54.7 VITAMIN B12/FOLATE, SERUM PA RALPH (1343) Reviewed date:03/10/2025 08:36:46 AM Interpretation: Performing Lab:FRANCIS [facility] Alessandro-Jlpsic24615 Chris Knutson, RrypwkIU[address] Miguel Mota MD Notes/Report: NON-FASTING NON-FASTING NON-FASTING NON-FASTING NON-FASTING NON-FASTING VITAMIN B12 343 989-1692 pg/mL N Please Note: Although the reference [...] Range Low: <3.4 Borderline: 3.4-5.4 Normal: >5.4 THYROID PEROXIDASE ANTIBODIE S (5081) Reviewed date:03/13/2025 08:31:36 AM Interpretation: Performing Lab:LEONARDO [facility] Alessandro-Moises Fernandeze1355 Mittesam Knutson, Moises FernandezOglgZX[address] Summer Abebe Notes/Report: NON-FASTING NON-FASTING NON-FASTING NON-FASTING NON-FASTING NON-FASTING THYROID PEROXIDASE ANTIBODIES 1 <9 IU/mL .CBC (INCLUDES DIFF/PLT) (63 99) Reviewed date:03/09/2025 08:50:59 AM Interpretation: Performing Lab:FRANCIS [facility] Alessandro-Aouwpn81789 Chris Knutson, OegmdkAG[address] Miguel Mota MD Notes/Report: NON-FASTING NON-FASTING NON-FASTING [...] 9.9 7.5-12.5 fL N ABSOLUTE NEUTROPHILS 5186 9752-1484 cells/uL N ABSOLUTE LYMPHOCYTES 2726 850-3900 cells/uL N ABSOLUTE MONOCYTES 516 200-950 cells/uL N ABSOLUTE EOSINOPHILS 120 15-500 cells/uL N ABSOLUTE BASOPHILS 52 0-200 cells/uL N NEUTROPHILS 60.3 N LYMPHOCYTES 31.7 N MONOCYTES 6.0 N EOSINOPHILS 1.4 N BASOPHILS 0.6 N TESTOSTERONE, FREE, BIO[place]AIL [place], [place] ([address]885) Reviewed date:03/13/2025 08:31:31 AM Interpretation: Performing Lab:Kayden [facility]-BadIfdnhd[address] [address], [address] HospitalSbtnlfexbuPN[address] Darcy Yeager MD,PhD Notes/Report: NON-FASTING NON-FASTING NON-FASTING NON-FASTING NON-FASTING NON-FASTING ALBUMIN 4.2 3.6-5.1 g/dL SEX HORMONE BINDING GLOBULIN 47 17-124 nmol/L TESTOSTERONE, FREE 1.6 0.2-5.0 pg/mL TESTOSTERONE,BIOAVAILABLE 3.1 0.5-8.5 ng/dL TESTOSTERONE, TOTAL, MS 18 2-45 ng/dL For additional information, please refer to https://education.Popset.Websupport/faq/F AQ165 (This link is being provided for informational/educatio nal purposes only.) (Note) This test was developed and its analytical performance characteristics have been determined by [facility]. It has not been cleared or approved by the FDA. This assay has been validated pursuant to the CLIA regulations and is used for clinical purposes. F med fusion [address] [facility] [address] [facility] [address] Darcy Yeager MD, PhD .COMPREHENSIVE METABOLIC CORTEZ EL ([address]) [facility] [address] Reviewed date:03/13/2025 02:48:59 PM Interpretation: Performing Lab:FRANCIS, [facility]-Rakone[address] Chris Knutson, UwbjifQS[address] Miguel Mota MD Notes/Report: NON-FASTING NON-FASTING NON-FASTING [...] U/L N ALT 19 6-29 U/L N RPP+ Reviewed date:10/13/2024 08:42:20 AM Interpretation: Performing [...] Detected 0-25.5 Acinetobacter baumannii Not Detected 0-28 .TSH W/REFLEX TO FT4 (13062) Reviewed date:10/04/2024 11:27:26 AM Interpretation: Performing Lab:FRANCIS, [facility]-Qjhkla17803 Chris [facility], YgrtpxHB[address] Miguel Mota MD Notes/Report: NON-FASTING TSH W/REFLEX TO FT4 1.33 N Reference Range > or = 20 Years 0.40-4.50 Ranges First trimester 0.26-2.66 Second trimester 0.55-2.73 Third trimester 0.43-2.91 NO COLLECTION DATE RECEIVED. WE HAVE USED THE DATE THE SPECIMEN WAS RECEIVED BY THIS LABORATORY THE COLLECTION DATE. IF THIS IS INCORRECT, PLEASE CONTACT CLIENT SERVICES. PHONE NUMBER: [phone] CBC + AutoDiff 5 Reviewed date:10/04/2024 08:11:02 [...] 41.35-72.27 % NEUTROPHILS # 5.87 2.03-7.67 10^3/uL COMP. METABOLIC Reviewed date:10/04/2024 08:10:43 AM Interpretation: [...] 6.9 6.1-8.1 g/dL eGFR 92.8 >60 mL/min LIPID PANEL Reviewed date:10/04/2024 08:10:51 AM Interpretation: Performing Lab: Notes/Report: CHOLESTEROL 148 0-200 mg/dL LDL Direct 74.0 0-100 mg/dL TRIGLYCERIDES 382 0-150 mg/dL H HDL CHOLESTEROL 32 50 mg/dL L CHOL/HDL RATIO 4.63 .CBC (INCLUDES DIFF/PLT) (63 99) Reviewed date:10/12/2024 10:54:07 AM Interpretation: Performing Lab:FRANCIS, [facility]-Dfbmxa11576 Chris Knutson, GwqlkpVC[address] Miguel Mota MD Notes/Report: NON-FASTING NON-FASTING NON-FASTING WHITE BLOOD CELL COUNT 8.8 3.8-10.8 Thousand/uL N RED BLOOD CELL COUNT 5.11 3.80-5.10 Million/uL H HEMOGLOBIN 15.9 11.7-15.5 g/dL H HEMATOCRIT 48.2 35.0-45.0 % H MCV 94.3 80.0-100.0 fL N MCH 31.1 27.0-33.0 pg N MCHC 33.0 32.0-36.0 g/dL N For adults, a slight decrease in the calculated MCHC value (in the range of 30 to 32 g/dL) is most likely not clinically significant; however, it should be interpreted with caution in correlation with other red cell parameters and the patient's clinical condition. RDW 12.9 11.0-15.0 % N PLATELET COUNT 231 140-400 Thousand/uL N MPV 10.5 7.5-12.5 fL N ABSOLUTE NEUTROPHILS 6239 6207-8130 cells/uL N ABSOLUTE LYMPHOCYTES 1998 566-2468 cells/uL N ABSOLUTE MONOCYTES 634 200-950 cells/uL N ABSOLUTE EOSINOPHILS 114 15-500 cells/uL N ABSOLUTE BASOPHILS 53 0-200 cells/uL N NEUTROPHILS 70.9 N LYMPHOCYTES 20.0 N MONOCYTES 7.2 N EOSINOPHILS 1.3 N BASOPHILS 0.6 N D-DIMER, QUANTITATIVE (8659) Reviewed date:10/12/2024 10:54:14 AM Interpretation: Performing Lab:KS [facility]-Fgvzuy64710 [facility], YyugogPN[address] Miguel Mota MD Notes/Report: NON-FASTING NON-FASTING NON-FASTING D-DIMER, QUANTITATIVE 0.59 <0.50 mcg/ mL FEU H Elevated D-dimer levels are associated with DIC, malignancies, inflammation, sepsis, surgery, trauma, and . A D-dimer result less than 0.5 mcg/mL FEU, in conjunction with a non-high clinical pre-test probability assessment model, excludes deep vein thrombosis and pulmonary embolism. However, since D-dimer values increase with age, the [employer] recommends an age-adjusted cut-off value in patients older than 50. The calculation for an age adjusted cut-off value is age (years) x 0.01 mcg/mL FEU. For example, the cut-off for a 70-year-old patient would be 70 x 0.01 mcg/mL FEU. For additional information, please refer to http://education.[facility].Websupport/faq/FA Q149 (This link is being provided for informational/educatio nal purposes only.) EXTRA SPECIMEN (28753) Reviewed date:10/12/2024 10:53:44 AM Interpretation: Performing Lab:Mara BLANCO [facility]-Xkuhqy85582 Chris [facility], AshiliWL[address] Miguel Mota MD Notes/Report: NON-FASTING NON-FASTING NON-FASTING EXTRA TUBE RECEIVED An extra specimen was received with no test requested. The specimen will be maintained in storage in case additional testing is needed. Please call the client service department for further assistance. SPECIMEN TYPE RECEIVED Serum Separator (SST) MYCOPLASMA PNEUMONIAE AB (IG G, IGM), IFA, CSF (58285) Reviewed date:10/17/2024 01:31:47 PM Interpretation: Performing Lab:Mara HERNANDEZ/[facility],[address] [facility] Pat Fischer MD,PhD,[place] Notes/Report: NON-FASTING NON-FASTING NON-FASTING MYCOPLASMA PNEUMONIAE IGG AB, IFA (CSF) TNP N TEST NOT PERFORMED. Transport device is not acceptable for test requested. Full Confirmation - Specimen Type Urine Reviewed [...] ng/ml Cannabis Screen Negative 150 ng/mL ng/ml *ECHO COMPLETE 79449 Reviewed date:11/15/2024 10:46:49 AM Interpretation:Normal Performing Lab: Notes/Report: Normal CAROTID DOPPLER ULTRASOUND 9 3880 Reviewed date:11/15/2024 10:46:12 AM Interpretation:Normal Performing Lab: Notes/Report: Normal *X-RAY CHEST PA & LATERAL 2 VIEWS 76690 Reviewed date:10/13/2024 03:50:17 PM Interpretation:PERITILOSIS PNEUMONIA , COPD Performing Lab: Notes/Report: PERITILOSIS PNEUMONIA , COPD Presumptive Drug Test - Spec imen Type [...] ng/mL ng/mL Trazodone Negative 50 ng/mL ng/mL .VITAMIN D,25-OH,TOTAL,IA (1 4371) Reviewed date:03/10/2025 08:36:38 AM Interpretation: Performing Lab:FRANCIS [facility]-Ajqsjy05727 Chris Knutson, MjzjsdOR[address] Miguel Mota MD Notes/Report: NON-FASTING NON-FASTING NON-FASTING NON-FASTING NON-FASTING NON-FASTING VITAMIN D,25-OH,TOTAL,IA 75 30-100 ng/mL N Vitamin D Status 25-OH Vitamin D: Deficiency: <20 ng/mL Insufficiency: 20 - 29 ng/mL Optimal: > or = 30 ng/mL For 25-OH Vitamin D testing on patients on D2-supplementation and patients for whom quantitation of D2 and D3 fractions is required, the [facility]() 25-OH VIT D, (D2,D3), LC/MS/MS is recommended: order code 30548 (patients >2yrs). See Note 1 NO COLLECTION DATE RECEIVED. WE HAVE USED THE DATE THE SPECIMEN WAS RECEIVED BY THIS LABORATORY THE COLLECTION DATE. IF THIS IS INCORRECT, PLEASE CONTACT CLIENT SERVICES. PHONE NUMBER: [phone] Note 1 For additional information, please refer to http://education.[facility].com/faq/FA Q199 (This link is being provided for informational/ educational purposes only.) Full Confirmation - Specimen Type Urine Reviewed [...] Cannabis Screen Positive 150 ng/mL ng/ml H INSULIN (561) Reviewed date:04/27/2024 08:10:03 AM Interpretation: Performing Lab:FRANCIS, [facility]-Xcygrp93320 Chris Perdue, OndcagPL[address] Miguel Mota MD Notes/Report: NON-FASTING INSULIN 12.2 N Reference Range < or = 18.4 Risk: Optimal < or = 18.4 Moderate NA High >18.4 Adult cardiovascular event risk category cut points (optimal, moderate, high) are based on Insulin Reference Interval studies performed at [facility] in 2021. CORTISOL, TOTAL (367) Reviewed date:04/27/2024 08:10:23 AM Interpretation: Performing Lab:FRANCIS, [facility]-[address]ws[address], SrbofhDN[address] Miguel Mota MD Notes/Report: NON-FASTING CORTISOL, TOTAL 4.4 N Reference Range: For 8 a.m.(7-9 a.m.) Specimen: 4.0-22.0 Reference Range: For 4 p.m.(3-5 p.m.) Specimen: 3.0-17.0 * Please interpret above results accordingly * ADVANCED LIPID PANEL, CARDIO IQ(R) (40372) Reviewed date:05/09/2024 10:18:31 AM Interpretation: Performing Lab:Patricio, [facility].[address] [place] [address], [address], MkhwnckerPM[address] Tim Thomason PhD,[facility] Notes/Report: NON-FASTING CHOLESTEROL, TOTAL 142 <200 mg/dL HDL CHOLESTEROL 40 >49 mg/dL L TRIGLYCERIDES 295 <150 mg/dL H If a non fasting specimen was collected, consider repeat triglyceride testing on a fasting specimen if clinically indicated. Adia et al. J of Clin. Lipidol. 215; 9:129-169. LDL-CHOLESTEROL 67 <100 mg/dL (calc) Desirable range <100 mg/dL for primary prevention; <70 mg/dL for patients with CHD or diabetic patients with >= 2 CHD risk factors. LDL-C is now calculated using the Hank-Faith calculation, which is a validated novel method providing better accuracy than the Friedewald equation in the estimation of LDL-C. Hank SS et al. JACOBY. 2013;310(19): 0874-0227 (http://education.Resermap.Websupport/faq/F AQ164) LDL-C is now calculated using the Hank-Faith calculation, which is a validated novel method providing better accuracy than the Friedewald equation in the estimation of LDL-C. Hank SS et al. JACOBY. 2013;310(19): 1177-3734 (http://KeepTrax.Resermap.Websupport/faq/F AQ164) CHOL/HDLC RATIO 3.6 <5.0 calc NON HDL CHOLESTEROL 102 <130 mg/dL (calc) For patients with diabetes plus 1 major ASCVD risk factor, treating to a non-HDL-C goal of <100 mg/dL (LDL-C of <70 mg/dL) is considered a therapeutic option. For patients with diabetes plus 1 major ASCVD risk factor, treating to a non-HDL-C goal of <100 mg/dL (LDL-C of <70 mg/dL) is considered a therapeutic option. LDL PARTICLE NUMBER 1760 <1138 nmol/L H Relative Risk: Optimal <1138; Moderate 2797-7186; High >1409. Male and Female Reference Range: 1016 to 2185 nmol/L. LDL SMALL 307 <142 nmol/L H Relative Risk: Optimal <142; Moderate 142-219; High >219. Male Reference Range: 123 to 441 nmol/L; Female Reference Range: 115 to 386 nmol/L. LDL MEDIUM 167 <215 nmol/L Relative Risk: Optimal <215; Moderate 215-301; High >301. Male Reference Range: 167 to 485 nmol/L; Female Reference Range: 121 to 397 nmol/L. HDL LARGE 5261 >6729 nmol/L L Relative Risk: Optimal >6729; Moderate 3112-8258; High <5353. Male Reference Range: 4334 to 15962 nmol/L; Female Reference Range: 5038 to [address] nmol/L. LDL PATTERN B A Pattern A Relative Risk: Optimal Pattern A; High Pattern B. Reference Range: Pattern A. LDL PEAK SIZE 207.2 >222.9 Angstrom L This test was developed and its analytical performance characteristics have been determined by [facility]. It has not been cleared or approved by the U.S. Food and Drug Administration. This assay has been validated pursuant to the CLIA regulations and is used for clinical purposes. Relative Risk: Optimal >222.9; Moderate 222.9-217.4; High <217.4. Male and Female Reference Range: 216 to 234.3 Angstrom. Adult cardiovascular event risk category cut points (optimal, moderate, high) are based on an adult [place] reference population plus two large cohort study populations. Association between lipoprotein subfractions and cardiovascular events is based on Eric et al. ATVB.2009;29:1975. For additional information, please refer to http://education.[facility].com/faq/FA Q134 (This link is being provided for informational/educatio nal purposes only.) APOLIPOPROTEIN B 101 <90 mg/dL H Risk: Optimal <90 mg/dL; Moderate 90-119 mg/dL; High >= 120 mg/dL; Cardiovascular event risk category cut points (optimal, moderate, high) are based on National Lipid Association recommendations- Adia TA et al. J of Clin Lipid. 2015; 9: 129-169 and Danilo PS et al. Endocr Pract. 2017;23(Suppl 2):1-87. LIPOPROTEIN (a) 393 <75 nmol/L H Verified by repeat analysis. Risk: Optimal <75 nmol/L; Moderate 75-125 nmol/L; High >125 nmol/L. Cardiovascular event risk category cut points (optimal, moderate, high) are based on Linwood Bellamy [facility] 2017;69:692-711. NO COLLECTION DATE RECEIVED. WE HAVE USED THE DATE THE SPECIMEN WAS RECEIVED BY THIS LABORATORY THE COLLECTION DATE. IF THIS IS INCORRECT, PLEASE CONTACT CLIENT SERVICES. PHONE NUMBER: [phone] MYCOPLASMA PNEUMONIAE ANTIBO DIES (IGG,IGM) (04358) Reviewed date:10/24/2024 08:54:25 AM Interpretation: Performing Lab:EZ, [facility],[address] [facility] Medical CenterCA[address] Pat Fischer MD,PhD,[place] Notes/Report: NON-FASTING NON-FASTING NON-FASTING MYCOPLASMA PNEUMONIAE ANTIBODY (IGG) 1.65 H REFERENCE RANGE: <=0.90 Interpretive criteria: <=0.90 Negative 0.91-1.09 Equivocal >=1.10 Positive A positive IgG antibody result indicates that the patient has antibody to Mycoplasma. It does not differentiate between an active or past infection. The clinical diagnosis must be interpreted in conjunction with the clinical signs and symptoms of the patient. MYCOPLASMA PNEUMONIAE ANTIBODY (IGM) 47 N REFERENCE RANGE: <770 U/mL Interpretive criteria: <770 U/mL Negative 770-950 U/mL Low positive >950 U/mL Positive A positive IgM antibody result is consistent with recent infection. However, a negative result does not necessarily rule out recent infection as some individuals may not mount another IgM response, if previously infected. NO COLLECTION DATE RECEIVED. WE HAVE USED THE DATE THE SPECIMEN WAS RECEIVED BY THIS LABORATORY THE COLLECTION DATE. IF THIS IS INCORRECT, PLEASE CONTACT CLIENT SERVICES. PHONE NUMBER: [phone] TEST AUTHORIZATION Reviewed date:10/18/2024 08:43:50 AM Interpretation: Performing Lab:FRANCIS, [facility]-Pnjgaa[address], AdkapjRK[address] Miguel Mota MD Notes/Report: NON-FASTING NON-FASTING NON-FASTING TEST NAME: MYCOPLASMA PNEUMONIAE ANTIBOD TEST CODE: [id number] CLIENT CONTACT: APRIL WHEELER REPORT ALWAYS MESSAGE SIGNATURE The laboratory testing on this patient was verbally requested or confirmed by the ordering physician or his or her authorized automotive sales representative after contact with an employee of [facility]. Federal regulations require that we maintain on file written authorization for all laboratory testing. Accordingly we are asking that the ordering physician or his or her authorized automotive sales representative sign a copy of this report and promptly return it to the client success director. 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 rapist Referral Priority Routine Referral Appointment Date 04/21/2024 Medications Medication SIG (Take, Route, Frequency, Duration) Notes Start Date End Date Status Clopidogrel Bisulfate 75 mg Tablet 1 tablet Orally Once daily; Duration: 30 days Active Isosorbide Mononitrate ER 30 mg Tablet Extended Release 24 Hour 1 tablet Orally daily; Duration: 30 days Active rOPINIRole HCl 2 mg Tablet 1 tablet Orally daily; Duration: 30 days At bedtime Active hydroCHLOROthiazide 12.5 mg Tablet 1 tablet Orally daily; Duration: 30 days Active Farxiga 10 MG Tablet 1 tablet Orally Once a day; Duration: 30 days Active Terbinafine HCl 250 MG Tablet 1 tablet Orally Once a day; Duration: 30 days Active amLODIPine Besylate 10 mg Tablet 1 tablet Orally daily; Duration: 30 days Active Lisinopril 20 mg Tablet 1 tablet Orally daily; Duration: 30 days Active 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 G7 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 - Device as directed; Duration: 90 days 12/11/2023 Active Atorvastatin Calcium 20 MG Tablet 1 tablet Orally Once a day; Duration: 90 days Active Ozempic (0.25 or 0.5 MG/DOSE) 2 MG/3ML Solution Pen-injector INJECT 0.25mg SUBCUTANEOUSLY EVERY WEEK *THANK YOU AND ESTELLA LOPEZSS YOU*; Duration: 30 Active Folic Acid 1 MG Tablet 1 tablet Orally Once a day; Duration: 30 days 07/27/2024 Active HYDROcodone-Acetaminophen 10-325 MG Tablet 1 tablet as needed for pain Orally three times a day; Duration: 28 days 03/08/2025 Active Magnesium 30 MG Tablet 1 tablet with a meal Orally Once a day; Duration: 30 days Every evening 07/27/2024 Active Tresiba FlexTouch 200 UNIT/ML Solution Pen-injector 24 UNITS Subcutaneous daily; Duration: 90 days Active metFORMIN HCl ER 500 mg Tablet Extended Release 24 Hour TAKE 2 TABLETS BY MOUTH TWICE A DAY *THANK YOU AND ESTELLA GARCIA BLESS YOU*; Duration: 30 Active Cilostazol 100 MG Tablet TAKE 1 TABLET B Y MOUTH TWICE A DAY THANK YOU AND ESTELLA GARCIA BLESS YOU Oral; Duration: 30 Days Active Celecoxib 200 mg Capsule 1 capsule orall y twice a day; Duration: 30 days Increasing to BID José Antonio Esquivel 12/07/2024 10:26:09 AM CDT > Active Dexcom G7 Sensor - Miscellaneous as directed every 10 days; Duration: 90 days 12/11/2023 Active Levocetirizine Dihydrochloride 5 MG Tablet 1 tablet in the evening Orally Once a day; Duration: 30 days Active Symbicort 160-4.5 MCG/ACT Aerosol 2 puffs Inhalation twice a day; Duration: 30 days Active Vitamin D (Ergocalciferol) 1.25 MG (14493 UT) Capsule 1 capsule Orally weekly; Duration: 30 days Active Aspirin Low Dose 81 MG Tablet Delayed Release 1 tablet Orally Once a day; Duration: 90 days Active Pregabalin 200 MG Capsule 1 capsule orally three times daily; Duration: 28 days As needed 03/08/2025 Active tiZANidine HCl 4 MG Tablet 1 tablet Orally 3 times daily; Duration: 28 days 03/08/2025 Active Social History Social History Tobacco Use: [...] Polyneuropathy due to type 2 diabetes mellitus (615875049) Type 2 diabetes mellitus with diabetic polyneuropathy (E11.42) Active confirmed Problem Hyperglycemia due to type 2 diabetes mellitus (226329427247716) Type 2 diabetes mellitus with hyperglycemia (E11.65) Active confirmed Problem Tobacco user (100897762) Nicotine dependence, cigarettes, uncomplicated (F17.210) Active confirmed Problem Mild major depression, single episode (13291748) Major depressive disorder, single episode, mild (F32.0) Active confirmed Problem Restless legs syndrome (68165832) Restless legs syndrome (G25.81) Active confirmed Problem Chronic pain syndrome (474059174) Chronic pain syndrome (G89.4) Active confirmed Problem Essential hypertension (31757378) Essential (primary) hypertension (I10) Active confirmed Problem Lumbar spinal fusion (procedure) (16729907) Fusion of spine, lumbar region (M43.26) Active confirmed Problem Degeneration of cervical intervertebral disc (14246835) Other cervical disc degeneration, 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) Active confirmed Problem Overactive bladder (381605564) Overactive bladder (N32.81) Active confirmed Problem Lack of physical exercise (75871741) Lack of physical exercise (Z72.3) Active confirmed Problem 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 (273988992) intermediate manager (current) use of insulin (Z79.4) Active confirmed Problem High risk drug monitoring status (858174054) intermediate manager (current) use of opiate analgesic (Z79.891) Active confirmed Problem 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 (303493707) Long-term insulin use (Z79.4) Active confirmed Problem Obese class I (777959721644579) BMI 33.0-33.9,adult (Z68.33) Active confirmed Problem Postmenopausal state (finding) (96996881) Postmenopausal symptoms (N95.9) Active confirmed Problem Obesity (120858844) Obesity (BMI 30-39.9) (E66.9) Active confirmed Problem Angina pectoris (650236489) Angina pectoris (I20.9) Active confirmed Problem Atherosclerotic heart disease of [place] coronary artery without angina pectoris (019500059852552) Atherosclerosis of coronary artery of [place] heart, angina presence unspecified, unspecified vessel or lesion type (I25.10) Active confirmed Problem Peripheral vascular disease (513154827) Peripheral vascular disease of lower extremity (I73.9) Active confirmed Problem History of placement of stent for coronary artery disease (situation) (632901633) S/P coronary artery stent placement (Z95.5) Active confirmed Problem History of myocardial infarction (717482283) History of myocardial infarction (I25.2) Active confirmed Problem Chronic obstructive pulmonary disease (90076141) COPD, moderate (J44.9) Active confirmed Problem BMI 30+ - obesity (282749313) BMI 32.0-32.9,adult (Z68.32) Active confirmed Problem Vitamin D deficiency (05475222) Vitamin D deficiency (E55.9) Active confirmed Problem Surgical menopause (812385315) Surgical menopause (E89.40) Active confirmed Problem Atherosclerosis of [place] coronary artery of [place] heart with angina pectoris with documented spasm (I25.111) Active confirmed Problem Nicotine dependence (11944643) Cigarette nicotine dependence with other nicotine-induced disorder (F17.218) Active confirmed Problem Myofascial low back pain (9532668923) Myofascial low back pain (M54.50) Active confirmed Problem Acute exacerbation of chronic obstructive pulmonary disease (502010407) Acute exacerbation of chronic obstructive pulmonary disease (J44.1) Active confirmed Problem Degeneration of intervertebral disc of lumbosacral region with discogenic back pain and lower extremity pain (M51.372) Active confirmed Vital Signs Heart Rate 86 /min 03/08/2025 Temperature 98 degrees Fahrenheit 02/08/2025 Respiratory Rate 18 /min 03/08/2025 Blood pressure diastolic 72 mm Hg 03/08/2025 Oximetry 97 % 03/08/2025 Height-cm 165.1 cm 03/08/2025 Weight-kg 92.53 kg 03/08/2025 Height 65 in 03/08/2025 Blood pressure systolic 132 mm Hg 03/08/2025 Weight 204 lbs 03/08/2025 BMI 33.94 kg/m2 03/08/2025 Encounters Encounter Location Date Provider Diagnosis [facility] [address] [place] [address] 03/17/2024 Traci Loo Fusion of spine of lumbar region M43.26 [facility] [address] [place] [address] 04/27/2024 José Antonio Esquivel Other intervertebral disc degeneration, lumbosacral region without mention of lumbar back pain or lower extremity pain M51.379 ; Other cervical disc degeneration, cervicothoracic region M50.33 ; Chronic pain syndrome G89.4 and detention (current) use of opiate analgesic Z79.891 [facility] [address] [place] [address] 10/03/2024 José Antonio Esquivel Essential (primary) hypertension I10 and Type 2 diabetes mellitus with hyperglycemia E11.65 [facility] [address] [address] 10/11/2024 José Antonio Esquivel Upper respiratory tract infection, unspecified type J06.9 and Acute bronchitis, unspecified organism J20.9 [facility] [address] [place] [address] 10/11/2024 José Antonio Esquivel Cough, unspecified type R05.9 [facility] [facility] [address] [place] [address] 10/11/2024 José Antonio Esquivel Bacterial infection A49.9 [facility] [place] [address] [place] [phone] 10/11/2024 José Antoniotraci Esquivel Acute upper respiratory infection, unspecified J06.9 and Resistance to multiple antibiotics Z16.24 901 [facility] [address] [place] [phone] 10/11/2024 José Antoniotraci Esquivel Acute cough R05.1 901 [facility] [address] [place] [phone] 10/11/2024 José Antoniotraci Esquivel Acute exacerbation of chronic obstructive pulmonary disease J44.1 [facility] [address] [place] [address] 10/19/2024 José Antonio Esquivel intermediate manager (current) use of opiate analgesic Z79.891 and intermediate manager use of drug Z79.[address] [place] [address] [place] [address] 10/31/2024 José Antonio Esquivel Essential (primary) hypertension I10 9[address] [facility] [address] [place] [phone] 11/08/2024 José Antonio Esquivel Atherosclerosis of [place] coronary artery of [place] heart with angina pectoris with documented spasm I25.111 and Dizziness R42 [facility] [address] [place] [address] 02/08/2025 José Antoniotraci Esquivel detention (current) use of opiate analgesic Z79.891 and detention use of drug Z79.899 901 [facility] [address] [place] [phone] 03/08/2025 José Antoniotraci Esquivel Postmenopausal symptoms N95.9 9[address] [facility] [address] [place] [phone] 03/28/2024 José Antonio Esquivel Type 2 diabetes mellitus with hyperglycemia E11.65 ; Type 2 diabetes mellitus with diabetic polyneuropathy, without long-term current use of insulin E11.42 ; Essential (primary) hypertension I10 ; Restless legs syndrome G25.81 ; Peripheral vascular disease of lower extremity I73.9 ; Atherosclerosis of coronary artery of [place] heart, angina presence unspecified, unspecified vessel or lesion type I25.10 and S/P coronary artery stent placement Z95.5 [facility] [address] [place] [address] 03/28/2024 Leocaitlyn Eze Type 2 diabetes mellitus with diabetic polyneuropathy E11.42 and Arteriosclerosis of coronary artery I25.[address] [place] [address] [facility] [address] [place] [phone] 03/30/2024 José Antonio Esquivel Chronic pain syndrome G89.4 ; detention (current) use of opiate analgesic Z79.891 ; Other intervertebral disc degeneration, lumbosacral region M51.37 ; Fusion of spine, lumbar region M43.26 ; Lack of physical exercise Z72.3 and Other cervical disc degeneration, cervicothoracic region M50.[address] [place] [address] [facility] [address] [place] [phone] 04/25/2024 José Antonio Esquivel Type 2 diabetes mellitus with hyperglycemia E11.65 ; Type 2 diabetes mellitus with diabetic polyneuropathy, without long-term current use of insulin E11.42 ; Essential (primary) hypertension I10 ; Restless legs syndrome G25.81 ; Peripheral vascular disease of lower extremity I73.9 ; Atherosclerosis of coronary artery of [place] heart, angina presence unspecified, unspecified vessel or lesion type I25.10 ; S/P coronary artery stent placement Z95.5 ; Fusion of spine, lumbar region M43.26 and Surgical menopause E89.40 [address] [facility] [address] [place] [phone] 04/27/2024 José Antonio Esquivel Chronic pain syndrome G89.4 ; intermediate manager (current) use of opiate analgesic Z79.891 ; Other intervertebral disc degeneration, lumbosacral region M51.37 ; Fusion of spine, lumbar region M43.26 ; Lack of physical exercise Z72.3 and Other cervical disc degeneration, cervicothoracic region M50.[address] [place] [address] [facility] [address] [place] [phone] 05/03/2024 José Antonio Esquivel Type 2 diabetes mellitus with hyperglycemia E11.65 ; Essential (primary) hypertension I10 ; Restless legs syndrome G25.81 ; Peripheral vascular disease of lower extremity I73.9 ; Atherosclerosis of coronary artery of [place] heart, angina presence unspecified, unspecified vessel or lesion type I25.10 ; S/P coronary artery stent placement Z95.5 ; Fusion of spine, lumbar region M43.26 ; Surgical menopause E89.40 ; Type 2 diabetes mellitus with diabetic polyneuropathy E11.42 ; intermediate manager (current) use of insulin Z79.4 and Dental caries K02.9 [address] [facility] [address] [address] 05/25/2024 José Antonio Esquivel Chronic pain syndrome G89.4 ; intermediate manager (current) use of opiate analgesic Z79.891 ; Fusion of spine, lumbar region M43.26 ; Lack of physical exercise Z72.3 ; Other cervical disc degeneration, cervicothoracic region M50.33 ; Myofascial low back pain M54.50 ; Degeneration of intervertebral disc of lumbosacral region with discogenic back pain and lower extremity pain M51.372 and BMI 33.0-33.9,adult Z68.[address] [place] [phone] 06/02/2024 Muna Mijares Type 2 diabetes mellitus with hyperglycemia E11.65 ; Essential (primary) hypertension I10 ; Restless legs syndrome G25.81 ; Peripheral vascular disease of lower extremity I73.9 ; Atherosclerosis of coronary artery of [place] heart, angina presence unspecified, unspecified vessel or lesion type I25.10 ; S/P coronary artery stent placement Z95.5 ; Fusion of spine, lumbar region M43.26 and intermediate manager (current) use of insulin Z79.[address] [place] [phone] 06/29/2024 José Antonio Esquivel Chronic pain syndrome G89.4 ; intermediate manager (current) use of opiate analgesic Z79.891 ; Fusion of spine, lumbar region M43.26 ; Lack of physical exercise Z72.3 ; Other cervical disc degeneration, cervicothoracic region M50.33 ; Myofascial low back pain M54.50 ; Degeneration of intervertebral disc of lumbosacral region with discogenic back pain and lower extremity pain M51.372 and BMI 33.0-33.9,adult Z68.33 [facility] [address] [place] [address] 06/29/2024 José Antonio Esquivel intermediate manager (current) use of opiate analgesic Z79.891 ; intermediate manager use of drug Z79.899 ; Chronic pain syndrome G89.4 and Acute low back pain, unspecified back pain laterality, unspecified whether sciatica present M54.50 901 [facility] [address] [place] [phone] 07/04/2024 José Antonio Esquivel Type 2 diabetes mellitus with hyperglycemia E11.65 ; Type 2 diabetes mellitus with diabetic polyneuropathy E11.42 ; Essential (primary) hypertension I10 ; Restless legs syndrome G25.81 ; Peripheral vascular disease of lower extremity I73.9 ; Atherosclerosis of coronary artery of [place] heart, angina presence unspecified, unspecified vessel or lesion type I25.10 ; S/P coronary artery stent placement Z95.5 ; Fusion of spine, lumbar region M43.26 and detention (current) use of insulin Z79.4 901 [facility] [address] [place] [phone] 07/04/2024 José Antonio Esquivel Annual visit for general adult medical examination with abnormal findings Z00.01 ; Encounter for immunization Z23 ; Screen for colon cancer Z12.11 ; Screening mammogram for breast cancer Z12.31 ; Screening for cervical cancer Z12.4 ; Encounter for smoking cessation counseling Z71.6 ; Obesity (BMI 30-39.9) E66.9 and Overactive bladder N32.81 1 [facility] [address] [place] [phone] 07/27/2024 José Antonio Esquivel Chronic pain syndrome G89.4 ; intermediate manager (current) use of opiate analgesic Z79.891 ; [...] diabetes mellitus with diabetic polyneuropathy E11.42 901 [facility] [address] [place] [phone] 08/24/2024 José Antonio Esquivel Chronic pain syndrome G89.4 ; intermediate manager (current) use of opiate analgesic Z79.891 ; [...] Peripheral vascular disease of lower extremity I73.9 [facility] [address] [place] [address] 08/24/2024 José Antonio Esquivel intermediate manager (current) use of opiate analgesic Z79.891 and intermediate manager use of drug Z79.899 901 [facility] [address] [place] [phone] 09/21/2024 José Antonio Esquivel Chronic pain syndrome G89.4 ; intermediate manager (current) use of opiate analgesic Z79.891 ; [...] somatic dysfunction of thoracic region M99.02 901 [facility] [address] [place] [phone] 10/03/2024 José Antonio Esquivel Type 2 diabetes [...] artery stent placement Z95.5 and Atherosclerosis of [place] coronary artery of [place] heart with angina pectoris with documented spasm I25.[address] [place] [address] [facility] [address] [place] [phone] 10/11/2024 José Antonio Esquivel Type 2 diabetes mellitus with hyperglycemia E11.65 ; Acute exacerbation of chronic obstructive pulmonary disease J44.1 ; intermediate manager (current) use of insulin Z79.4 ; Type 2 diabetes mellitus with diabetic polyneuropathy E11.42 ; Acute cough R05.1 ; Upper respiratory tract infection, unspecified type J06.9 and Acute bronchitis, unspecified organism J20.[address] [place] [address] [facility] [address] [place] [phone] 10/19/2024 José Antonio Esquivel Chronic pain syndrome G89.4 ; intermediate manager (current) use of opiate analgesic Z79.891 ; [...] and somatic dysfunction of thoracic region M99.[address] [place] [address] [facility] [address] [place] [phone] 11/08/2024 José Antonio Esquivel Cigarette nicotine dependence with other nicotine-induced disorder F17.218 ; Type 2 diabetes mellitus with hyperglycemia E11.65 ; Type 2 diabetes mellitus with diabetic polyneuropathy E11.42 ; Atherosclerosis of coronary artery of [place] heart, angina presence unspecified, unspecified vessel or lesion type I25.10 ; S/P coronary artery stent placement Z95.5 ; History of myocardial infarction I25.2 ; BMI 32.0-32.9,adult Z68.32 and COPD, moderate J44.[address] [place] [address] [address] 11/16/2024 José Antonio Esquivel Chronic pain syndrome G89.4 ; intermediate manager (current) use of opiate analgesic Z79.891 ; [...] and somatic dysfunction of thoracic region M99.[address] [place] [phone] 12/14/2024 José Antonio Esquivel Chronic pain syndrome G89.4 ; intermediate manager (current) use of opiate analgesic Z79.891 ; [...] and somatic dysfunction of thoracic region M99.[address] [place] [phone] 01/11/2025 José Antonio Esquivel Chronic pain syndrome G89.4 ; detention (current) use of opiate analgesic Z79.891 ; [...] somatic dysfunction of thoracic region M99.02 [facility]01 [facility] [address] [place] [phone] 02/08/2025 José Antonio Esquivel Chronic pain syndrome G89.4 ; detention (current) use of opiate analgesic Z79.891 ; [...] somatic dysfunction of thoracic region M99.02 [address] [facility] [address] [place] [phone] 03/08/2025 José Antonio Esquivel Chronic pain syndrome G89.4 ; detention (current) use of opiate analgesic Z79.891 ; [...] somatic dysfunction of thoracic region M99.02 and Postmenopausal symptoms N95.9 [address]01 [facility] [address] [place] [phone] 04/14/2024 José Antonio Sierra Chronic pain syndrome G89.4 [address] [facility] [address] [place] [phone] 08/24/2024 José Antonio Esquivel [address] [place] [address] [facility] [address] [place] [phone] 10/11/2024 José Antonio Esquivel [address] [place] [address] [facility] [address] [place] [address] 10/11/2024 José Antonio Esquivel [facility] [address] [place] [address] 12/07/2024 José Antonio Concepcion1 [facility] [address] [place] [address] 01/11/2025 José Antonio Esquivel [facility] [address] [place] [address] 01/26/2025 José Antonio Esquivel Assessments Encounter Date Diagnosis (ICD Code) Assessment Notes Treatment Notes Treatment Clinical Notes Section Notes 03/17/2024 Fusion of spine of lumbar region (ICD-10 - M43.26) 03/28/2024 Type 2 diabetes mellitus with diabetic [...] Chronic pain syndrome (ICD-10 - G89.4) 05/25/2024 intermediate manager (current) use of opiate analgesic (ICD-10 - Z79.891) 06/02/2024 Type 2 diabetes mellitus with hyperglycemia (ICD-10 - E11.65) 06-02-24 lipitor doubled to 40mg. extensive edu on care home affects of uncontrolled dm. non compliant with ADA diet. pt to increase metformin to 1000 er bid, increase treseba to 24 units daily. seat installer discussed and strongly encouraged. pt fto avoid refined sugars and gluten. statin increased to 40mg daiy. bring medicaitons to update list 06/02/2024 Essential (primary) hypertension (ICD-10 - I10) 06-02-24 lipitor doubled to 40mg. extensive edu on care home affects of uncontrolled dm. non compliant with ADA diet. pt to increase metformin to 1000 er bid, increase treseba to 24 units daily. seat installer discussed and strongly encouraged. pt fto avoid refined sugars and gluten. statin increased to 40mg daiy. bring medicaitons to update list 06/29/2024 detention (current) use of opiate analgesic (ICD-10 - Z79.891) 06/29/2024 intermediate manager use of drug (ICD-10 - Z79.899) 06/29/2024 Chronic pain syndrome (ICD-10 - G89.4) 07/04/2024 Type 2 diabetes mellitus with diabetic polyneuropathy (ICD-10 - E11.42) 06-02-24 lipitor doubled to 40mg. extensive edu on care home affects of uncontrolled dm. non compliant with ADA diet. pt to increase metformin to 1000 er bid, increase treseba to 24 units daily. seat installer discussed and strongly encouraged. pt fto avoid refined sugars and gluten. statin increased to 40mg daiy. bring medicaitons to update list 07/04/2024 Type 2 diabetes mellitus with hyperglycemia (ICD-10 - E11.65) 06-02-24 lipitor doubled to 40mg. extensive edu on care home affects of uncontrolled dm. non compliant with ADA diet. pt to increase metformin to 1000 er bid, increase treseba to 24 units daily. seat installer discussed and strongly encouraged. pt fto avoid [...] Chronic pain syndrome (ICD-10 - G89.4) 08/24/2024 intermediate manager (current) use of opiate analgesic (ICD-10 - [...] Dizziness (ICD-10 - R42) 11/08/2024 Atherosclerosis of [place] coronary artery of [place] heart with angina pectoris with documented spasm (ICD-10 - I25.111) 11/08/2024 Type 2 diabetes mellitus with hyperglycemia (ICD-10 - E11.65) 10/19/2024 detention (current) use of opiate analgesic (ICD-10 - [...] her health to continue to improve. 11/16/2024 detention (current) use of opiate analgesic (ICD-10 - Z79.891) 12/14/2024 Chronic pain syndrome (ICD-10 - G89.4) 01/11/2025 Chronic pain syndrome (ICD-10 - G89.4) 02/08/2025 Chronic pain syndrome (ICD-10 - G89.4) 02/08/2025 detention (current) use of opiate analgesic (ICD-10 - Z79.891) 03/08/2025 Chronic pain syndrome (ICD-10 - G89.4) 03/08/2025 Postmenopausal symptoms (ICD-10 - N95.9) 03/08/2025 detention (current) use of opiate analgesic (ICD-10 - Z79.891) 03/08/2025 Fusion of spine, lumbar region (ICD-10 - M43.26) 02/08/2025 intermediate manager use of drug (ICD-10 - Z79.899) 02/08/2025 intermediate manager (current) use of opiate analgesic (ICD-10 - Z79.891) 01/11/2025 detention (current) use of opiate analgesic (ICD-10 - Z79.891) 12/14/2024 detention (current) use of opiate analgesic (ICD-10 - Z79.891) 11/16/2024 Fusion of spine, lumbar region (ICD-10 - M43.26) 10/19/2024 detention use of drug (ICD-10 - Z79.899) 11/08/2024 Type 2 diabetes mellitus with diabetic polyneuropathy (ICD-10 - E11.42) 10/19/2024 intermediate manager (current) use of opiate analgesic (ICD-10 - Z79.891) 10/11/2024 intermediate manager (current) use of insulin (ICD-10 - Z79.4) 10/11/2024 Resistance to multiple antibiotics (ICD-10 - Z16.24) 10/03/2024 Essential (primary) hypertension (ICD-10 - I10) 09/21/2024 intermediate manager (current) use of opiate analgesic (ICD-10 - Z79.891) 08/24/2024 intermediate manager use of drug (ICD-10 - Z79.899) 08/24/2024 intermediate manager (current) use of opiate analgesic (ICD-10 - Z79.891) 07/27/2024 detention (current) use of opiate analgesic (ICD-10 - Z79.891) 07/04/2024 Screen for colon cancer (ICD-10 - Z12.11) Not necessary at this time, Negative colonoscopy 3 years prior. 07/04/2024 Essential (primary) hypertension (ICD-10 - I10) 06-02-24 lipitor doubled to 40mg. extensive edu on intermediate manager affects of uncontrolled dm. non compliant with ADA diet. pt to increase metformin to 1000 er bid, increase treseba to 24 units daily. seat installer discussed and strongly encouraged. pt fto avoid refined sugars and gluten. statin increased to 40mg daiy. bring medicaitons to update list 06/29/2024 Chronic pain syndrome (ICD-10 - G89.4) 06/29/2024 intermediate manager (current) use of opiate analgesic (ICD-10 - Z79.891) 06/02/2024 Restless legs syndrome (ICD-10 - G25.81) 06-02-24 lipitor doubled to 40mg. extensive edu on intermediate manager affects of uncontrolled dm. non compliant with ADA diet. pt to increase metformin to 1000 er bid, increase treseba to 24 units daily. seat installer discussed and strongly encouraged. pt fto avoid refined sugars and gluten. statin increased to 40mg daiy. bring medicaitons to update list 05/25/2024 Fusion of spine, lumbar region (ICD-10 - M43.26) 05/03/2024 Restless legs syndrome (ICD-10 - G25.81) 04/27/2024 intermediate manager (current) use of opiate analgesic (ICD-10 - Z79.891) 04/27/2024 Chronic pain syndrome (ICD-10 - G89.4) 04/25/2024 Essential (primary) hypertension (ICD-10 - I10) 03/30/2024 detention (current) use of opiate analgesic (ICD-10 - Z79.891) 03/28/2024 Essential (primary) hypertension (ICD-10 - I10) 03/28/2024 Restless legs syndrome (ICD-10 - G25.81) 04/25/2024 Restless legs syndrome (ICD-10 - G25.81) 03/30/2024 Other intervertebral disc degeneration, lumbosacral region (ICD-10 - M51.37) 04/27/2024 Other intervertebral disc degeneration, lumbosacral region (ICD-10 - M51.37) 04/27/2024 intermediate manager (current) use of opiate analgesic (ICD-10 - Z79.891) 05/03/2024 Peripheral vascular disease of lower extremity (ICD-10 - I73.9) 06/29/2024 Fusion of spine, lumbar region (ICD-10 - M43.26) 06/29/2024 Acute low back pain, unspecified back pain laterality, unspecified whether sciatica present (ICD-10 - M54.50) 06/02/2024 Peripheral vascular disease of lower extremity (ICD-10 - I73.9) 06-02-24 lipitor doubled to 40mg. extensive edu on care home affects of uncontrolled dm. non compliant with ADA diet. pt to increase metformin to 1000 er bid, increase treseba to 24 units daily. seat installer discussed and strongly encouraged. pt fto avoid refined sugars and gluten. statin increased to 40mg daiy. bring medicaitons to update list 05/25/2024 Lack of physical exercise (ICD-10 - Z72.3) 07/04/2024 Restless legs syndrome (ICD-10 - G25.81) 06-02-24 lipitor doubled to 40mg. extensive edu on intermediate manager affects of uncontrolled dm. non compliant with ADA diet. pt to increase metformin to 1000 er bid, increase treseba to 24 units daily. seat installer discussed and strongly encouraged. pt fto avoid [...] M43.26) 11/08/2024 Atherosclerosis of coronary artery of [place] heart, angina presence unspecified, unspecified vessel or lesion type (ICD-10 - I25.10) 11/16/2024 Other cervical disc degeneration, cervicothoracic region (ICD-10 - M50.33) 12/14/2024 Fusion of spine, lumbar region (ICD-10 - M43.26) 01/11/2025 Fusion of spine, lumbar region (ICD-10 - M43.26) 02/08/2025 Fusion of spine, lumbar region (ICD-10 - M43.26) 03/08/2025 Other cervical disc degeneration, cervicothoracic region (ICD-10 - M50.33) 03/08/2025 Myofascial low back pain (ICD-10 - M54.50) 02/08/2025 Other cervical disc degeneration, cervicothoracic region (ICD-10 - M50.33) 01/11/2025 Other cervical disc degeneration, cervicothoracic region [...] lipitor doubled to 40mg. extensive edu on intermediate manager affects of uncontrolled dm. non compliant with ADA diet. pt to increase metformin to 1000 er bid, increase treseba to 24 units daily. seat installer discussed and strongly encouraged. pt fto avoid refined sugars and gluten. statin increased to 40mg daiy. bring medicaitons to update list 06/02/2024 Atherosclerosis of coronary artery of [place] heart, angina presence unspecified, unspecified vessel or lesion type (ICD-10 - I25.10) 06-02-24 lipitor doubled to 40mg. extensive edu on intermediate manager affects of uncontrolled dm. non compliant with ADA diet. pt to increase metformin to 1000 er bid, increase treseba to 24 units daily. seat installer discussed and strongly encouraged. pt fto avoid refined sugars and gluten. statin increased to 40mg daiy. bring medicaitons to update list 06/29/2024 Lack of physical exercise (ICD-10 - Z72.3) 05/03/2024 Atherosclerosis of coronary artery of [place] heart, angina presence unspecified, unspecified vessel or lesion type (ICD-10 - I25.10) 05/25/2024 Other cervical disc degeneration, cervicothoracic region (ICD-10 - M50.33) 04/25/2024 Peripheral vascular disease of lower extremity (ICD-10 - I73.9) We will initiate physical therapy, since the vending machine operator has not started this yet. 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 03/30/2024 Lack of physical exercise (ICD-10 - Z72.3) 03/28/2024 Atherosclerosis of coronary artery of [place] heart, angina presence unspecified, unspecified vessel or lesion type (ICD-10 - I25.10) 04/25/2024 Atherosclerosis of coronary artery of [place] heart, angina presence unspecified, unspecified vessel or [...] lipitor doubled to 40mg. extensive edu on care home affects of uncontrolled dm. non compliant with ADA diet. pt to increase metformin to 1000 er bid, increase treseba to 24 units daily. seat installer discussed and strongly encouraged. pt fto avoid refined sugars and gluten. statin increased to 40mg daiy. bring medicaitons to update list 07/04/2024 Atherosclerosis of coronary artery of [place] heart, angina presence unspecified, unspecified vessel or lesion type (ICD-10 - I25.10) 06-02-24 lipitor doubled to 40mg. extensive edu on care home affects of uncontrolled dm. non compliant with ADA diet. pt to increase metformin to 1000 er bid, increase treseba to 24 units daily. seat installer discussed and strongly encouraged. pt fto avoid [...] Myofascial low back pain (ICD-10 - M54.50) 03/08/2025 Degeneration of intervertebral disc of lumbosacral region with discogenic back pain and lower extremity pain (ICD-10 - M51.372) 02/08/2025 Myofascial low back pain (ICD-10 - M54.50) 02/08/2025 Degeneration of intervertebral disc of lumbosacral region with discogenic back pain and lower extremity pain (ICD-10 - M51.372) 03/08/2025 BMI 33.0-33.9,adult (ICD-10 - Z68.33) 01/11/2025 Degeneration of intervertebral disc of lumbosacral [...] poses were demonstrated as well. José Antonio Eqsuivel 08/24/2024 02:00:24 PM CDT > 10/03/2024 Chronic obstructive pulmonary disease, unspecified COPD type (ICD-10 - J44.9) 07/27/2024 Myofascial low back pain (ICD-10 - M54.50) 07/04/2024 S/P coronary artery stent placement (ICD-10 - Z95.5) 06-02-24 lipitor doubled to 40mg. extensive edu on care home affects of uncontrolled dm. non compliant with ADA diet. pt to increase metformin to 1000 er bid, increase treseba to 24 units daily. seat installer discussed and strongly encouraged. pt fto avoid [...] lipitor doubled to 40mg. extensive edu on care home affects of uncontrolled dm. non compliant with ADA diet. pt to increase metformin to 1000 er bid, increase treseba to 24 units daily. seat installer discussed and strongly encouraged. pt fto avoid [...] degeneration, cervicothoracic region (ICD-10 - M50.33) 04/25/2024 Fusion of spine, lumbar region (ICD-10 - M43.26) We will obtain follow-up x-ray of the lumbar spine in May. 05/25/2024 BMI 33.0-33.9,adult (ICD-10 - Z68.33) MCT oil recomended. 1 Oz daily- split doses. 05/03/2024 Surgical menopause (ICD-10 - E89.40) 06/29/2024 Degeneration of intervertebral disc of lumbosacral region with discogenic back pain and lower extremity pain (ICD-10 - M51.372) 06/02/2024 detention (current) use of insulin (ICD-10 - Z79.4) 06-02-24 lipitor doubled to 40mg. extensive edu on intermediate manager affects of uncontrolled dm. non compliant with ADA diet. pt to increase metformin to 1000 er bid, increase treseba to 24 units daily. seat installer discussed and strongly encouraged. pt fto avoid refined sugars and gluten. statin increased to 40mg daiy. bring medicaitons to update list 07/04/2024 Overactive bladder (ICD-10 - N32.81) 07/04/2024 Fusion of spine, lumbar region (ICD-10 - M43.26) 06-02-24 lipitor doubled to 40mg. extensive edu on care home affects of uncontrolled dm. non compliant with ADA diet. pt to increase metformin to 1000 er bid, increase treseba to 24 units daily. seat installer discussed and strongly encouraged. pt fto avoid [...] Z68.33) 01/11/2025 BMI 33.0-33.9,adult (ICD-10 - Z68.33) 02/08/2025 BMI 33.0-33.9,adult (ICD-10 - Z68.33) 03/08/2025 Type 2 diabetes mellitus with diabetic polyneuropathy (ICD-10 - E11.42) 03/08/2025 Peripheral vascular disease of lower extremity (ICD-10 - I73.9) 02/08/2025 Type 2 diabetes mellitus with diabetic polyneuropathy (ICD-10 - E11.42) 01/11/2025 Type 2 diabetes mellitus with diabetic [...] recomended. 1 Oz daily- split doses. 07/04/2024 detention (current) use of insulin (ICD-10 - Z79.4) 06-02-24 lipitor doubled to 40mg. extensive edu on intermediate manager affects of uncontrolled dm. non compliant with ADA diet. pt to increase metformin to 1000 er bid, increase treseba to 24 units daily. seat installer discussed and strongly encouraged. pt fto avoid refined sugars and gluten. statin increased to 40mg daiy. bring medicaitons to update list 06/29/2024 BMI 33.0-33.9,adult (ICD-10 - Z68.33) MCT oil recomended. 1 Oz daily- split doses. 04/25/2024 Surgical menopause (ICD-10 - E89.40) 05/03/2024 Type 2 diabetes mellitus with diabetic polyneuropathy (ICD-10 - E11.42) 05/03/2024 intermediate manager (current) use of insulin (ICD-10 - Z79.4) [...] disease of lower extremity (ICD-10 - I73.9) 02/08/2025 Peripheral vascular disease of lower extremity (ICD-10 - I73.9) 03/08/2025 Segmental and somatic dysfunction of thoracic region (ICD-10 - M99.02) 03/08/2025 Postmenopausal symptoms (ICD-10 - N95.9) 02/08/2025 Segmental and somatic dysfunction of thoracic region (ICD-10 - M99.02) 01/11/2025 Segmental and somatic dysfunction of thoracic [...] is medically cleared for dental extractions tomorrow. 10/19/2024 Cigarette nicotine dependence with other nicotine-induced [...] RESULTS. T1-4 AND T5-9 10/03/2024 Atherosclerosis of [place] coronary artery of [place] heart with angina pectoris with documented spasm (ICD-10 - I25.111) 10/11/2024 Other old code 45289 new code 0241U 4 Targets - Covid-19 (SARS2), Influenza A & B, RSV and Upper Resp Specimen 03/30/2024 Other During the patient's visit today, [...] risks/benefits of alternative treatments such as acupuncture, home health aide caregiver, massage, and biofeedback. We discussed behavioral health [...] risks/benefits of alternative treatments such as acupuncture, home health aide caregiver, massage, and biofeedback. We discussed behavioral health [...] risks/benefits of alternative treatments such as acupuncture, home health aide caregiver, massage, and biofeedback. We discussed behavioral health [...] risks/benefits of alternative treatments such as acupuncture, home health aide caregiver, massage, and biofeedback. We discussed behavioral health [...] risks/benefits of alternative treatments such as acupuncture, home health aide caregiver, massage, and biofeedback. We discussed behavioral health [...] risks/benefits of alternative treatments such as acupuncture, home health aide caregiver, massage, and biofeedback. We discussed behavioral health [...] 10/11/2024 Other Respiratory PCR, 1GRAM Rocephin injection EsquivelWili elizabethothy 10/11/2024 10:06:13 AM CDT > 10/19/2024 Other [...] risks/benefits of alternative treatments such as acupuncture, home health aide caregiver, massage, and biofeedback. We discussed behavioral health [...] care plan as needed during future visits. 02/08/2025 Other During this visit 30 minutes were spent with the patient, during that time medication was reconciled, imaging and labs were reviewed, medication was eletronically sent to pharmacy, checked for medication interactions, discussed exercising and weight loss counseling, discussed plan for additional OTC pain control and home pt including meditation, yoga ect. PDMP inquired. Plan Of Treatment Pending Test Test Name Order Date Comp. Metabolic Panel (14) 11/30/2023 Urine Drug Screen 04/27/2024 Urine Drug Screen 06/29/2024 CBC 11/30/2023 .HEMOGLOBIN A1c (496) 11/30/2023 LIPASE (606) 11/30/2023 AMYLASE (243) 11/30/2023 DRUG MONITORING, PANEL 7 WITH CONFIRMATI ON, URINE (26242) 04/27/2024 DRUG MONITORING, PANEL 7 WITH CONFIRMATI ON, URINE (24489) 06/29/2024 *COVID 52093 10/11/2024 *FLU A & B 08237 10/11/2024 HEMOGLOBIN A1c % 10/03/2024 SEX HORMONE BINDING GLOBULIN (80035) Future Test Test Name Order Date *X-RAY CHEST PA & LATERAL 2 VIEWS [id number] 10/03/2024 *Electrocardiogram (EKG) 10/03/2024 PULMONARY FUNCTION TEST 10/03/2024 Next Appt Details Provider Name:José Antonio jerry, 04/04/2025 01:45:00 PM, [address] [place], [address], Provider Name:José Antonio jerry, 04/05/2025 01:30:00 PM, [address] [place], [address], Insurance Providers Payer Name Payer Address Payer Phone Subscriber Number Group Number Insured Name Patient Relationship to Insured Coverage Start Date Coverage End Date [facility] [address] [place] [address] [id number] LORIN ESPINOZA Self - patient is the insured [employer] [place] [address] [place], [place] [id number] LORIN DANG Self - patient is the insured Medications Administered Medication Instructions Date of Administration Dosage Notes Ceftriaxone(Rocephin) 1000 mg 10/11/2024 1000 m g Medical (General) History Medical History History ICD Code hypertension cholesterol diabetes Surgical History Surgery Date(Month/Year) heart stent tubal ablasion spinal fusion 2022 x2
[2025-03-17 17:41] LABS: Hematocrit 42.6 % (36-47); Hemoglobin 14.40 g/dL (11.27-16.99); Mean Corpuscular HGB Conc 33.8 g/dL (30-55); Mean Corpuscular Hemoglobin 31.1 pg (27-33); Mean Corpuscular Volume 92.0 fl (85-98); Nucleated Red Blood Cells % 0 %; Platelet Count 214 10^3/cmm (157-399); Red Blood Count 4.63 10^6/uL (3.85-5.65); White Blood Count 6.51 10^3/uL (3.29-11.43)
[2025-03-17 17:42] VITALS: PULSE 89; RESP 16; O2SAT 100
--- NOTE | 2025-03-17 17:44 | XRR_ITS ---
PROCEDURE INFORMATION: Exam: XR Chest Exam date and time: 03/17/2025 5:48 PM Age: 49 years old Clinical indication: Shortness of breath; Additional info: SOB and swelling in extremities for 3 days TECHNIQUE: Imaging protocol: Radiologic exam of the chest. Views: 1 view. COMPARISON: CR XR chest 1V portable [id number] 01/24/2025 7:01 AM FINDINGS: Lungs: No pulmonary consolidation. Pleural spaces: No pleural effusion or pneumothorax. Heart/Mediastinum: Heart size is within normal limits. Bones/joints: No acute osseous abnormalities are seen. XR/XR chest 1V portable [id number] IMPRESSION: No acute cardiopulmonary disease.
--- NOTE | 2025-03-17 18:00 | W.ED.EXTPRO ---
HPI - Extremity Problem General: Chief complaint: General Medical Stated complaint: legs swollen Time Seen by Provider: 03/17/25 17:48 Source: patient Mode of arrival: ambulatory Limitations: no limitations History of Present Illness: Patient is a 49-year-old female presents to ED today with complaint of bilateral lower extremity swelling that she has noticed over the past several days. She feels like swelling is best first thing in the morning but worsens throughout the day. She feels like swelling to her legs is symmetrical. She has no known history of congestive heart failure. She does have a history of CAD with previous cardiac stenting. She is not complaining of chest pain, shortness of breath, difficulty breathing. Denies orthopnea/PND. She is on multiple medications. Patient has not tried conservative therapy such as elevation or compression stockings. MD Complaint: extremity pain and extremity swelling Onset (ago): day(s) Pain Consistency: constant Location: left, right and lower extremity Radiation: none Relieving factors: nothing Exacerbating factors: walking Associated symptoms: Reports no associated symptoms; Deny chest pain, fever(s) or rash Related Data Home Medications ?Medication ?Instructions ?Recorded ?Confirmed amlodipine 10 mg tablet (Norvasc) 10 mg PO DAILY 09/25/20 02/01/25 atorvastatin 20 mg tablet (Lipitor) 20 mg PO DAILY 09/25/20 02/01/25 hydrochlorothiazide 12.5 mg tablet 12.5 mg PO DAILY 09/25/20 02/01/25 lisinopril 20 mg tablet 20 mg PO DAILY 09/25/20 02/01/25 ropinirole 1 mg tablet 1 mg PO .qhs 09/25/20 02/01/25 aspirin 81 mg tablet,delayed 81 mg PO DAILY 01/24/25 02/01/25 release budesonide-formoterol HFA 160 2 puff inhalation BID 01/24/25 02/01/25 mcg-4.5 mcg/actuation aerosol inhaler (Symbicort) celecoxib 200 mg capsule 200 mg PO DAILY 01/24/25 02/01/25 clopidogrel 75 mg tablet 75 mg PO DAILY 01/24/25 02/01/25 dapagliflozin propanediol 10 mg 10 mg PO DAILY 01/24/25 02/01/25 tablet (Farxiga) ergocalciferol (vitamin D2) 1,250 1,250 mcg PO Q7D 01/24/25 02/01/25 mcg (50,000 unit) capsule hydrocodone 10 mg-acetaminophen 1 tab PO TID pain 01/24/25 02/01/25 325 mg tablet isosorbide mononitrate 30 mg 30 mg PO DAILY 01/24/25 02/01/25 tablet,extended release 24 hr metformin 500 mg tablet,extended 1,000 mg PO BID 01/24/25 02/01/25 release 24 hr metoprolol tartrate 100 mg tablet 100 mg PO BID 01/24/25 02/01/25 pregabalin 200 mg capsule 200 mg PO TID PRN Pain 01/24/25 02/01/25 semaglutide 0.25 mg or 0.5 mg (2 0.5 mg SUBCUT Q7D 01/24/25 02/01/25 mg/3 mL) subcutaneous pen injector (Ozempic) insulin degludec 200 unit/mL (3 unit SUBCUT 02/01/25 02/01/25 mL) subcutaneous pen (Tresiba FlexTouch U-200 insulin) Previous Rx's ?Medication ?Instructions ?Recorded nystatin 100,000 unit/gram topical 1 applic topical BID #30 grams 02/01/25 cream paroxetine HCl 10 mg tablet (Paxil) 10 mg PO DAILY #60 tabs 02/01/25 doxycycline hyclate 100 mg capsule 100 mg PO BID 7 days #14 caps 02/02/25 estradiol 0.01% (0.1 mg/gram) 1 g vaginal .twice weekly #42.5 02/02/25 vaginal cream grams furosemide 40 mg tablet (Lasix) 40 mg PO DAILY 3 days #3 tabs 03/17/25 Allergies Allergy/AdvReac Type Severity Reaction Status Date / Time No Known Allergies Allergy Verified 02/01/25 10:22 Review of Systems Const: Denies: fever(s), chills, body aches, fatigue or malaise Card: Reports: edema and swelling of feet/ankles; Denies: chest pain, palpitations, irregular heart rhythm, lightheadedness, syncope, pre-syncope or dyspnea on exertion Resp: Denies: dyspnea Musc: Reports: extremity swelling; Denies: joint pain, joint swelling, joint redness, joint warmth, joint stiffness, limited range of motion, muscle cramps or muscle weakness Skin/Breast: Denies: rash or erythema Neuro: Denies: headache(s) or dizziness PFSH ED PFSH: Medical History History of placement of stent in LAD coronary artery x2 stents in Jun 2023 Surgical History History of endometrial ablation 2011 for heavy periods H/O tubal ligation 1997 Hx of section x2, 1990, 1994 Family History Grandfather Cancer Grandmother Diabetes Mother Hypertension Stroke Hyperlipidemia Thyroid disease Social History Smoking and tobacco/nicotine status: current every day tobacco/nicotine user (1/2 to 1 ppd) Second hand smoke exposure: Yes Alcohol intake: current Alcohol intake frequency: holidays/special occasions only Substance/Drug Use: never Physical Exam Const: COMMON NORMALS: no acute distress, average body habitus, patient oriented x3, no limitations, healthy appearing, alert and well nourished HENMT: COMMON NORMALS: normocephalic and atraumatic HEAD & SCALP: normocephalic and atraumatic Neck/C-Spine: COMMON NORMALS: full ROM, no lymphadenopathy, supple, no meningeal signs and no JVD Chest: COMMONS NORMALS: normal inspection of the chest and normal palpation of entire chest wall Resp: COMMON NORMALS: normal respiratory effort and clear to auscultation bilaterally AUSCULTATION: clear to auscultation bilaterally Cardio: COMMON NORMALS: no JVD, regular rate and regular rhythm RATE: regular rate RHYTHM: regular rhythm GI: COMMON NORMALS: Normal to inspection, nondistended, normoactive bowel sounds present, Soft to palpation, non-tender, No hepatosplenomegaly present and no masses PALPATION: Yes Soft to palpation and Yes No hepatosplenomegaly present : COMMON NORMALS: Yes no CVA tenderness BLADDER/KIDNEY EXAM: Yes no CVA tenderness Back/Pelvis: COMMON NORMALS: no CVA tenderness and thoracic and lumbar spine normal to inspection Extremity: COMMON NORMALS: normal to inspection, capillary refill normal and no calf tenderness GENERAL: Yes normal exam except as noted OTHER: symmetrical, nonpitting edema to bilateral lower extremities; NV intact Neuro: COMMON NORMALS: patient oriented x3, moves all extremities, no focal motor deficits, no sensory deficits noted and gait normal SENSORIUM/ORIENTATION: Yes alert MENINGEAL SIGNS: Yes no meningeal signs Skin: COMMON NORMALS: no rashes or lesions noted GENERAL SKIN EXAM: no rashes or lesions noted Course Vital Signs: Vital signs: Vital Signs Pulse Rate 89 03/17/25 17:42 Respiratory Rate 16 03/17/25 17:42 Blood Pressure 89/63 03/17/25 18:32 Pulse Oximetry 96 03/17/25 18:32 Oxygen Delivery Me thod Room Air 03/17/25 18:32 MDM - Extremity (Nontraumatic) Medical Decision Making Patient presents with bilateral leg swelling. Differential includes chronic venous insufficiency, medication side effect, heart failure/pulmonary edema, venous thrombus, nephrotic syndrome, dependent edema, liver disease, lymphedema among others. History obtained from patient. Prior records on file were reviewed. Labs ordered/reviewed: CBC, CMP, BNP. Imaging ordered/reviewed: CXR normal In the ED, patient received PO Lasix. Response: not adequate time for assessment IMPRESSION: Working diagnosis is bilateral leg edema most likely dependent edema but could be medication induced as she is on CCB/NSAIDS/among others that could cause this. DISPOSITION: Patient will be discharged. Prescriptions: Lasix x 3 days. Follow-up arranged with PCP in 1-2 weeks for medication assessment to see if this could be contributing factor. Instructions for leg elevation and compression stockings. Patient advised on strict return precautions and verbalized understanding. Medical Records I reviewed the patient's medical records. Lab Data I reviewed the patient's lab results. 03/17/25 17:31 03/17/25 17:31 Radiology Impressions Chest X-Ray 03/17/25 17:44 IMPRESSION: No acute cardiopulmonary disease. Laboratory Results WBC 6.51 10^3/uL (3.29-11.43) 03/17/25 17: RBC 4.63 10^6/uL (3.85-5.65) 03/17/25 17:31 Hgb 14.40 g/dL (11.27-16.99) 03/17/25 17:31 Hct 42.6 % (36-47) 03/17/25 17: MCV 92.0 fl (85-98) 03/17/25 17:31 MCH 31.1 pg (27-33) 03/17/25 17: MCHC 33.8 g/dL (30-55) 03/17/25 17: RDW 13.3 % (12.1-15.1) 03/17/25 17: Plt Count 214 10^3/cmm (157-399) 03/17/25 17: MPV 10.6 fL (7.4-10.4) H 03/17/25 17: Neut % (Auto) 58.2 % 03/17/25 17: Lymph % (Auto) 31.0 % 03/17/25 17: Young % (Auto) 7.5 % 03/17/25: Eos % (Auto) 2.2 % 03/17/25 17: Baso % (Auto) 0.6 % 03/17/25: Neut # (Auto) 3.79 10^3/uL (1.8-7.7) 03/17/25 17: Lymph # (Auto) 2.0 10^3/uL (0.8-4.8) 03/17/25 17: Young # (Auto) 0.5 10^3/uL (0.2-0.9) 03/17/25 17: Eos # (Auto) 0.1 10^3/uL (0.0-0.8) 03/17/25 17: Baso # (Auto) 0.0 10^3/uL (0.0-0.1) 03/17/25 17: Nucleated RBC % (auto) 0 % 03/17/25 17: Nucleated RBCs # 0.0 /100WBC 03/17/25 17: Sodium 137 mmol/L (136-145) 03/17/25 17: Potassium 4.3 mmol/L (3.5-5.1) 03/17/25 17: Chloride 98 mmol/L (98-107) 03/17/25 17: Carbon Dioxide 25 mmol/L (22-29) 03/17/25 17: Anion Gap 18.3 (5-19) 03/17/25 17: BUN 20 mg/dL (6-20) 03/17/25 17:31 Creatinine 1.0 mg/dL (0.5-0.9) H 03/17/25 17:31 GFR Calculation 58.9 mL/min (90-130) L 03/17/25 17:31 Glucose 257 mg/dL (65-115) H 03/17/25 17:31 Calculated Osmolality 295 mOsm/kg (285-295) 03/17/25 17:31 Calcium 9.6 mg/dL (8.5-10.5) 03/17/25 17:31 Total Bilirubin 0.2 mg/dL (0.15-1.2) 03/17/25 17:31 AST 13 U/L (0-32) 03/17/25 17:31 ALT 20 U/L (0-33) 03/17/25 17:31 Alkaline Phosphatase 118 U/L (35-105) H 03/17/25 17:31 NT-Pro-B Natriuret Pep < 36 pg/mL (0-125) 03/17/25 17:31 Total Protein 6.8 g/dL (6.6-8.7) 03/17/25 17:31 Albumin 3.9 g/dL (3.5-5.2) 03/17/25 17:31 Globulin 2.9 g/dL (1.3-4.6) 03/17/25 17:31 All radiology interpretation(s) finalized by discharge Discharge Plan Discharge Patient Disposition: Home Clinical Impression: Bilateral edema of lower extremity Condition: Stable Prescriptions: New furosemide [Lasix] 40 mg tablet 40 mg PO DAILY 3 Days Qty: 3 0RF No Action hydrochlorothiazide 12.5 mg tablet 12.5 mg PO DAILY ropinirole 1 mg tablet 1 mg PO .qhs atorvastatin [Lipitor] 20 mg tablet 20 mg PO DAILY amlodipine [Norvasc] 10 mg tablet 10 mg PO DAILY lisinopril 20 mg tablet 20 mg PO DAILY insulin degludec [Tresiba FlexTouch U-200] 200 unit/mL (3 mL) insulin pen SUBCUT paroxetine HCl [Paxil] 10 mg tablet 10 mg PO DAILY Qty: 60 2RF Rx Instructions: take before bed nystatin 100,000 unit/gram cream 1 applic topical BID Qty: 30 3RF Rx Instructions: use as directed doxycycline hyclate 100 mg capsule 100 mg PO BID 7 Days Qty: 14 0RF estradiol 0.01 % (0.1 mg/gram) cream 1 g vaginal .twice weekly Qty: 42.5 3RF Rx Instructions: insert pea size amount intravaginally twice weekly celecoxib 200 mg capsule 200 mg PO DAILY metoprolol tartrate 100 mg tablet 100 mg PO BID isosorbide mononitrate 30 mg tablet extended release 24 hr 30 mg PO DAILY clopidogrel 75 mg tablet 75 mg PO DAILY hydrocodone-acetaminophen 10-325 mg tablet 1 tab PO TID aspirin 81 mg tablet,delayed release (DR/EC) 81 mg PO DAILY ergocalciferol (vitamin D2) 1,250 mcg (50,000 unit) capsule 1,250 mcg PO Q7D metformin 500 mg tablet extended release 24 hr 1,000 mg PO BID pregabalin 200 mg capsule 200 mg PO TID PRN (Reason: Pain) budesonide-formoterol [Symbicort] 160-4.5 mcg/actuation HFA aerosol inhaler 2 puff INHALATION BID dapagliflozin propanediol [Farxiga] 10 mg tablet 10 mg PO DAILY Ozempic 0.25 mg or 0.5 mg (2 mg/3 mL) pen injector 0.5 mg SUBCUT Q7D Discharge Orders: Discharge ED (Routine); Ordered 03/17/25 Ordered By: Nadia Preston Referrals: Nancy Acharya FNP [Primary Care Provider, Unknown] Patient Instructions: Leg Edema (ED), Patient Portal & Clara Instructions Activity Restrictions/Additional Instructions: As we discussed, I would like you to begin elevating your legs is much as reasonably possible and begin wearing compression stockings as swelling most likely is related to dependent edema. I would like you to speak to your primary care provider about whether they feel any of your medications could be contributing. We talked about monitoring your salt/sodium intake. Print Language: Sami Coding Level of Care Code ED [employer] Dist[employer] Operator for 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
[2025-03-17 18:22] LABS: Alanine Aminotransferase 20 U/L (0-33); Albumin Level 3.9 g/dL (3.5-5.2); Alkaline Phosphatase 118 U/L (35-105); Anion Gap 18.3 (5-19); Aspartate Amino Transferase 13 U/L (0-32); Blood Urea Nitrogen 20 mg/dL (6-20); Calcium 9.6 mg/dL (8.5-10.5); Carbon Dioxide 25 mmol/L (22-29); Chloride 98 mmol/L (98-107); Creatinine Clr Calc Pharmacy 76.5047; Globulin 2.9 g/dL (1.3-4.6); Glucose 257 mg/dL (65-115); Osmolality Calculated 295 mOsm/kg (285-295); Potassium 4.3 mmol/L (3.5-5.1); Sodium 137 mmol/L (136-145); Total Protein 6.8 g/dL (6.6-8.7)
[2025-03-17 18:27] LABS: NT Pro B Type Natriuretic Pept < 36 pg/mL (0-125)
[2025-03-17 18:32] VITALS: BP 89/63; O2SAT 96
[2025-03-17 18:52] VITALS: BP 102/68; PULSE 73; RESP 16; O2SAT 96
== END 2025-03-17 18:52 | disposition home or self-care (01) ==
PROVIDERS: Emergency Medicine; Emergency Provider Physician Assistant; PCP Nurse Practitioner Family
DX: R60.0 Localized edema (principal); Z79.4 Long term (current) use of insulin; Z79.02 Long term (current) use of antithrombotics/antiplatelets; Z79.82 Long term (current) use of aspirin; Z79.84 Long term (current) use of oral hypoglycemic drugs; I25.10 Atherosclerotic heart disease of native coronary artery without angina pectoris; F17.210 Nicotine dependence, cigarettes, uncomplicated
CPT/HCPCS: 36415; 71045; 80053; 83880; 85025; 99284; J9999

== ENCOUNTER → 2025-03-27 13:16 | Outpatient (BNVA) | payer OTHER, MEDICAID, SELFPAY | PROVIDERS: PCP Nurse Practitioner Family; Visit Provider Nurse Practitioner Women's Health | DX: R53.83 Other fatigue (principal) | CPT/HCPCS: 82607 ==

== ENCOUNTER 2025-06-02 15:53 | Outpatient (CLI) | payer OTHER, MEDICAID, SELFPAY ==
--- NOTE | 2025-06-02 16:00 | USR_ITS ---
PROCEDURE INFORMATION: Exam: US Left Limited Joint or Other Non-Vascular Extremity Structure Exam date and time: 06/02/2025 4:11 PM Age: 49 years old Clinical indication: Mass or lump; Arm, upper; Left; Additional info: R22.30 - localized swelling, mass and lump, unspecified u. . . , Left posterior upper arm TECHNIQUE: Imaging protocol: US left limited joint or other nonvascular extremity structure. Real-time ultrasound with image documentation. Exam focused on the area of clinical interest. Total images: 14 COMPARISON: No relevant prior studies available. FINDINGS: Soft tissues: Unremarkable. No discrete masses, free fluid, or organizing loculated fluid collections to account for the clinically palpable area of concern (AOC). No myofascial defect or evidence of muscle hernia. US/US soft tissue/extremity [id number] IMPRESSION: Unremarkable US.
== END 2025-06-02 15:54 | disposition home or self-care (01) ==
LOC: RAD 15:55
PROVIDERS: PCP Electrodiagnostic Medicine; Visit Provider Nurse Practitioner Women's Health
DX: R22.30 Localized swelling, mass and lump, unspecified upper limb (principal)
CPT/HCPCS: 76882